=== PATIENT | female | born 1950 | race Caucasian/White ===

== ENCOUNTER 2018-04-30 11:14 | Inpatient (IN) | payer MEDICARE, OTHER ==
[~2018-04-30] VITALS: Ht 157.5 cm; Wt 71.6 kg
[~2018-04-30 11:14] MED LIST: ADDE10 PO; ADDE20XR PO; ARMO60TA PO; CYMB60CA PO; HYDRO25 PO; KCL20 PO; LASI20TA PO; OMPR20CCR PO; PRED2.5T4 PO; REST30CA PO; SOMA350T PO; TRAZ150T2 PO
[2018-04-30 11:21] VITALS: BP 186/79; PULSE 84; RESP 18; TEMP 98.6; O2SAT 98
--- NOTE | 2018-04-30 11:38 | PD ---
HPI Chief Complaint: Psychiatric Symptoms Time Seen by Provider: 11:31 Travel History International Travel<30 days: No Contact w/Intl Traveler<30days: No Traveled to known affect area: No History of Present Illness HPI 911 was called out for suicidal statements made, call was made out by sister. Patient's was then Turner acted based on the letter that stated that she wanted to harm herself. Apparently the patient ingested an unknown amount of pantoprazole, it is unknown over what period of time. However according to EMS the patient has been acting strangely over the last 3 days and it is questionable if the patient has been compliant with her medications. Patient is not really answering questions directly just continues to mumble and speak nonsensical sentences instead of answering questions...for instance patient mumbled "i'm very manipulative", "i'm very beautiful". 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 available per chart review [facility] Past Medical History Diabetes: No Menopausal: Yes : 2 Para: 2 Social History Alcohol Use: No Tobacco Use: No Substance Use: No Allergies-Medications (Allergen,Severity, Reaction): Coded Allergies: bee venom protein (honey bee) (Unverified Allergy, Intermediate, Chest Pain, 07/06/17) MAKES HER CHEST FEEL TIGHT codeine (Unverified Allergy, Intermediate, Nausea/Vomiting, 07/06/17) Reported Meds & Prescriptions Reported Meds & Active Scripts Active Reported Levsin (Hyoscyamine Sulfate) 0.125 Mg Tab 0.125 Mg PO DAILY PRN Tessalon Perles (Benzonatate) 100 Mg Cap 100 Mg PO TID PRN Xanax (Alprazolam) 2 Mg Tab 1 Mg PO HS Xanax (Alprazolam) 2 Mg Tab 0.5 Mg PO BID Hydrochlorothiazide 12.5 Mg Cap 12.5 Mg PO DAILY PRN Protonix (Pantoprazole Sodium) 40 Mg Tab 40 Mg PO DAILY Prednisone 10 Mg Tab 30 Mg PO DAILY 10 Days Plavix (Clopidogrel Bisulfate) 75 Mg Tab 75 Mg PO DAILY Adderall (Amphetamine-Dextroamphetamine) 20 Mg Tab 20 Mg PO BID Avoid late evening doses. Space doses at least 4 to 6 hours if more than once/day dosing. Restoril (Temazepam) 30 Mg Cap 30 Mg PO HS PRN Ceftin (Cefuroxime Axetil) 250 Mg Tab 250 Mg PO BID 5 Days [place] Thyroid (Thyroid) 60 Mg Tab 60 Mg PO DAILY Review of Systems ROS Limitations: Altered Mental Status General / Constitutional: No: Fever Eyes: No: Visual changes HENT: No: Headaches Cardiovascular: No: Chest Pain or Discomfort Respiratory: No: Shortness of Breath Gastrointestinal: No: Abdominal Pain Genitourinary: No: Dysuria Musculoskeletal: No: Pain Skin: No Rash Neurologic: Positive: Other (Diffuse), No: Weakness Psychiatric: Positive: Suicidal Ideations, No: Depression Endocrine: No: Polydipsia Hematologic/Lymphatic: No: Easy Bruising Physical Exam Exam Limitations: Clinical Condition, Altered Mental Status Narrative GENERAL: SKIN: Warm and dry. HEAD: Atraumatic. Normocephalic. EYES: Pupils equal and round. No scleral icterus. No injection or drainage. ENT: No nasal bleeding or discharge. Mucous membranes pink and moist. NECK: Trachea midline. No JVD. CARDIOVASCULAR: Regular rate and rhythm. RESPIRATORY: No accessory muscle use. Clear to auscultation. Breath sounds equal bilaterally. GASTROINTESTINAL: Abdomen soft, non-tender, nondistended. Hepatic and splenic margins not palpable. MUSCULOSKELETAL: Extremities without clubbing, cyanosis, or edema. No obvious deformities. NEUROLOGICAL: Awake confused with clear nonsensical speech. No obvious cranial nerve deficits. Motor grossly within normal limits. Five out of 5 muscle strength in the arms and legs. Follows commands with repeated instructions PSYCHIATRIC: Anxious mood and affect; insight and judgment abnormal. Data Data Last Documented VS Vital Signs Date Time Temp Pulse Resp B/P (MAP) Pulse Ox O2 Delivery O2 Flow Rate FiO2 04/30/18 11:30 83 18 04/30/18 11:21 98.6 186/79 (114) 98 Orders Orders Complete Blood Count With Diff (04/30/18 11:31) Comprehensive Metabolic Panel (04/30/18 11:31) Thyroid Stimulating Hormone (04/30/18 11:31) Urinalysis - C+S If Indicated (04/30/18 11:31) Electrocardiogram (04/30/18 11:31) Psych Screen (04/30/18 11:31) Drug Screen, Random Urine (04/30/18 11:31) Alcohol (Ethanol) (04/30/18 11:31) Salicylates (Aspirin) (04/30/18 11:31) Tylenol (Acetaminophen) (04/30/18 11:31) Ct Brain W/O Iv Contrast(Rout) (04/30/18 11:38) Labs Laboratory Tests Test 04/30/18 11:45 White Blood Count 14.4 TH/MM3 Red Blood Count 4.71 MIL/MM3 Hemoglobin 12.1 GM/DL Hematocrit 36.3 % Mean Corpuscular Volume 77.1 FL Mean Corpuscular Hemoglobin 25.6 PG Mean Corpuscular Hemoglobin Concent 33.3 % Red Cell Distribution Width 18.0 % Platelet Count 377 TH/MM3 Mean Platelet Volume 7.9 FL Neutrophils (%) (Auto) 76.8 % Lymphocytes (%) (Auto) 14.1 % Monocytes (%) (Auto) 8.6 % Eosinophils (%) (Auto) 0.3 % Basophils (%) (Auto) 0.2 % Neutrophils # (Auto) 11.1 TH/MM3 Lymphocytes # (Auto) 2.0 TH/MM3 Monocytes # (Auto) 1.2 TH/MM3 Eosinophils # (Auto) 0.0 TH/MM3 Basophils # (Auto) 0.0 TH/MM3 CBC Comment AUTO DIFF Blood Urea Nitrogen 22 MG/DL Creatinine 0.86 MG/DL Random Glucose 98 MG/DL Total Protein 7.3 GM/DL Albumin 3.3 GM/DL Calcium Level 8.7 MG/DL Alkaline Phosphatase 97 U/L Aspartate Amino Transf (AST/SGOT) 39 U/L Alanine Aminotransferase (ALT/SGPT) 40 U/L Total Bilirubin 0.7 MG/DL Sodium Level 140 MEQ/L Potassium Level MEQ/L Chloride Level 107 MEQ/L Carbon Dioxide Level 21.8 MEQ/L Anion Gap 11 MEQ/L Estimat Glomerular Filtration Rate 65 ML/MIN Thyroid Stimulating Hormone 3rd Gen 0.869 uIU/ML Salicylates Level LESS THAN 1.7 MG/DL Acetaminophen Level LESS THAN 2.0 MCG/ML Ethyl Alcohol Level LESS THAN 3 MG/DL MDM Medical Decision Making Medical Screen Exam Complete: Yes Emergency Medical Condition: Yes Medical Record Reviewed: Yes Interpretation(s) EKG has motion artifact however it is noted that normal sinus rhythm, 70 bpm, incomplete right bundle branch block pattern, no evidence of any ST elevation AK pattern Differential Diagnosis Intracranial hemorrhage versus thyrotoxicosis versus electrolyte imbalance Narrative Course CT head read by radiologist as no acute intracranial abnormality Tox screen negative for Tylenol salicylates or alcohol CBC shows reactive leukocytosis without left shift, no anemia, normal platelet count, no left shift Electrolytes are all within normal limits, normal kidney and liver functions, normal TSH screening Diagnosis Primary Impression: Yue eisenberg Additional Impression: Medical clearance for psychiatric admission Adrian Anderson MD Apr 30, 2018 11:38
--- NOTE | 2018-04-30 12:08 | RADRPT ---
EXAM DATE: 04/30/2018 11:58 AM EDT AGE/SEX: 68 years / Female INDICATIONS: Altered mental status, confusion for three days. CLINICAL DATA: This is the patient's initial encounter. Patient reports that signs and symptoms have been present for 1 day and indicates a pain score of 0/10. MEDICAL/SURGICAL HISTORY: Hypertension. None. RADIATION DOSE: 33.19 CTDI (mGy) COMPARISON: No prior exams available for comparison. TECHNIQUE: CT of the head without contrast. Using automated exposure control and adjustment of the mA and/or kV according to patient size, radiation dose was kept as low as reasonably achievable to ob tain optimal diagnostic quality images. FINDINGS: There is mild atrophy. No signs of acute infarct, hemorrhage, or mass. Osseous structures are intact. CONCLUSION: 1. No acute findings. Electronically signed by: Ac Marks MD 04/30/2018 12:07 PM EDT
[2018-04-30 12:10] LABS: AUTOMATED NEUTROPHIL # 11.1 TH/MM3 (1.8-7.7); BASOPHIL % 0.2 % (0.0-2.0); EOSINOPHIL % 0.3 % (0.0-4.0); HEMATOCRIT 36.3 % (35.0-46.0); HEMOGLOBIN 12.1 GM/DL (11.6-15.3); LYMPH % 14.1 % (9.0-44.0); MEAN CELL VOLUME 77.1 FL (80.0-100.0); MEAN CORPUSCULAR HEMOGLOBIN 25.6 PG (27.0-34.0); MEAN CORPUSCULAR HGB CONC 33.3 % (32.0-36.0); MEAN PLATELET VOLUME 7.9 FL (7.0-11.0); MONO % 8.6 % (0.0-8.0); MONOCYTE # 1.2 TH/MM3 (0-0.9); NEUT % 76.8 % (16.0-70.0); PLATELET COUNT 377 TH/MM3 (150-450); RED BLOOD COUNT 4.71 MIL/MM3 (4.00-5.30); WHITE BLOOD COUNT 14.4 TH/MM3 (4.0-11.0)
[2018-04-30 12:27] LABS: ALBUMIN 3.3 GM/DL (3.4-5.0); ALT (GPT) 40 U/L (10-53); AST (GOT) 39 U/L (15-37); BICARBONATE 21.8 MEQ/L (21.0-32.0); BLOOD UREA NITROGEN 22 MG/DL (7-18); CALCIUM 8.7 MG/DL (8.5-10.1); CHLORIDE 107 MEQ/L (98-107); CREATININE 0.86 MG/DL (0.50-1.00); GLOMERULAR FILTRATION RATE 65 ML/MIN (>89); GLUCOSE,RANDOM 98 MG/DL (74-106); SODIUM (NA) 140 MEQ/L (136-145)
[2018-04-30 12:30] LABS: ALKALINE PHOSPHATASE 97 U/L (45-117); TOTAL BILIRUBIN ADULT 0.7 MG/DL (0.2-1.0); TOTAL PROTEIN 7.3 GM/DL (6.4-8.2)
[2018-04-30] MEDS ORDERED: PRED10 PO (12:30)
[2018-04-30] MEDS ORDERED: XANA2TAB2 PO ×2 (12:30)
[2018-04-30] MEDS ORDERED: LEVS0.123 PO (12:30)
[2018-04-30] MEDS ORDERED: CEFU1TAB18 PO (12:30)
[2018-04-30] MEDS ORDERED: ADDE20 PO (12:30)
[2018-04-30] MEDS ORDERED: BENZ100 PO (12:30)
[2018-04-30] MEDS ORDERED: PROT40TA PO (12:30)
[2018-04-30] MEDS ORDERED: PLAV75TA29 PO (12:30)
[2018-04-30] MEDS ORDERED: ARMO60TA PO (12:30)
[2018-04-30] MEDS ORDERED: HYDR12.57 PO (12:30)
[2018-04-30] MEDS ORDERED: REST30CA PO (12:30)
[2018-04-30 12:39] LABS: ACETAMINOPHEN LESS THAN 2.0 MCG/ML (10.0-30.0)
[2018-04-30 12:54] LABS: BANDS 2 % (0-6); CORRECTED NUCLEATED RBC 1 /100 WBC (0-0); LYMPHOCYTES 15 % (9-44); METAMYELOCYTES 3 % (0-1); MONOCYTES 7 % (0-8); MYELOCYTES 4 % (0-0); NEUTROPHIL # MANUAL DIFF 11.2 TH/MM3 (1.8-7.7); NUCLEATED RED BLOOD CELL 1 (0-0); POLYS (SEG NEUTROPHILS) 69 % (16-70)
--- NOTE | 2018-04-30 14:40 | EKG ---
Date Performed: 04/30/2018 Time Performed: 11:42:31 PTAGE: 68 years EKG: Sinus rhythm POSSIBLE LEFT ATRIAL ENLARGEMENT POSSIBLE RIGHT VENTRICULAR CONDUCTION DELAY BORDERLINE ECG NO PREVIOUS TRACING DOCTOR: David Singletary Interpretating Date/Time 04/30/2018 14:39:09
[2018-04-30 16:11] LABS: BILIRUBIN, URINE NEG (NEG); BLOOD, URINE NEG (NEG); GLUCOSE,URINE NEG (NEG); HYALINE CAST, URINE 2 /lpf (RARE); KETONE, URINE NEG (NEG); MUCUS URINE FEW /lpf (OCC); NITRITE,URINE NEG (NEG); PH, URINE 6.5 (5.0-8.5); SQUAMOUS EPITHELIAL CELL URINE 1 /hpf (0-5); URINE COLOR YELLOW (YELLW/STRAW); URINE LEUKOCYTE ESTERASE NEG (NEG)
--- NOTE | 2018-04-30 17:57 | PD ---
History of Present Illness Chief Complaint: Psychiatric Symptoms Time Seen by Provider: 17:42 Travel History International Travel<30 Days: No Contact w/Intl Traveler<30days: No Known affected area: No Legal Status Legal Status: [employer] Act History of Present Illness: This is a 68-year-old female who presents to this facility under a Turner act for reportedly making suicidal statements to her sister. Additionally , per the Turner act a suicide note was found and is believed that the patient has been taking excessive medication. Patient has previously been seen here for psychiatric care however is been several years since her last inpatient admission. Reviewed electronic medical records, labs, discussed case with staff. Patient is observed in her room talking to herself. I attempted to evaluate her however , she is too disorganized to answer the questions. Her speech is clear. There appears to be some internal stimulation and her mood is bizarre. Patient sits on her bed with a smile on her face when asked why she was here she responded, "I am traveling". When asked where she was traveling to she responds, "contact ". I advised patient that I would be admitting her to the psychiatric unit and just received a smile. PFSH Past Medical History Anxiety: Yes High Cholesterol: Yes Diabetes: No GERD: Yes Hypertension: Yes Thyroid Disease: Yes Menopausal: Yes : 2 Para: 2 Past Surgical History Other Surgery: Yes (BIOPSYS ) Psychiatric History Psychiatric History Patient previously been admitted to this facility for psychosis. Hx Psychiatric Treatment: pt stated she saw someone for social security History of Inpatient Treatment: Yes Social History Hx Alcohol Use: No Hx Tobacco Use: No Hx Substance Use: No Hx of Substance Use Treatment: No Allergies-Medications (Allergen,Severity, Reaction): Coded Allergies: bee venom protein (honey bee) (Unverified Allergy, Intermediate, Chest Pain, 07/06/17) MAKES HER CHEST FEEL TIGHT codeine (Unverified Allergy, Intermediate, Nausea/Vomiting, 07/06/17) Reported Meds & Prescriptions Reported Meds & Active Scripts Active Reported Levsin (Hyoscyamine Sulfate) 0.125 Mg Tab 0.125 Mg PO DAILY PRN Tessalon Perles (Benzonatate) 100 Mg Cap 100 Mg PO TID PRN Xanax (Alprazolam) 2 Mg Tab 1 Mg PO HS Xanax (Alprazolam) 2 Mg Tab 0.5 Mg PO BID Hydrochlorothiazide 12.5 Mg Cap 12.5 Mg PO DAILY PRN Protonix (Pantoprazole Sodium) 40 Mg Tab 40 Mg PO DAILY Prednisone 10 Mg Tab 30 Mg PO DAILY 10 Days Plavix (Clopidogrel Bisulfate) 75 Mg Tab 75 Mg PO DAILY Adderall (Amphetamine-Dextroamphetamine) 20 Mg Tab 20 Mg PO BID Avoid late evening doses. Space doses at least 4 to 6 hours if more than once/day dosing. Restoril (Temazepam) 30 Mg Cap 30 Mg PO HS PRN Ceftin (Cefuroxime Axetil) 250 Mg Tab 250 Mg PO BID 5 Days [place] Thyroid (Thyroid) 60 Mg Tab 60 Mg PO DAILY Review of Systems Except as stated in HPI: all other systems reviewed are Neg Mental Status Examination Appearance: Appropriate Consciousness: Alert Orientation: Person Speech: Pressured, Rapid Language: Other (Disorganized) Fund of Knowledge: Poor Attention and Concentration: Easily Distracted, Inadequate Mood: Manic Affect: Euthymic (Hyper euthymic) Thought Process & Associations: Circumstantial, Disorganized Thought Content: Bizarre thinking, Racing thoughts Hallucination Type: Other (Was observed talking with no one in room) Suicidal Ideation: Yes (Per Turner act) Suicidal Plan: Yes (Per Turner act) Suicidal Intention: Yes (Per Turner act) Homicidal Ideation: No (Unable to assess) Homicidal Plan: No (Unable to assess) Homicidal Intention: No (Unable to assess) Insight: Poor Judgment: Poor MDM Medical Decision Making Medical Record Reviewed: Yes Assessment/Plan This is a 68-year-old female who presents under Turner act to this facility for suicidal ideation. The Turner act later goes on to mention a suicide note and attempted overdose. Upon examination patient is found sitting on the bed hyper euthymic state smiling intensely. She is a poor historian as her speech is clear but disorganized and illogical. She appears to be suffering from some internal stimulation. Her answers to questions asked her inappropriate. She appears to be experiencing otoniel with some psychotic features. She will be admitted to [facility] unit for evaluation and treatment as deemed necessary. I attempted to make contact with her listed son however, the phone just rang and was unable to leave a message. Request HC Surrog/Guard Advoc?: Yes Orders Orders Complete Blood Count With Diff (04/30/18 11:31) Comprehensive Metabolic Panel (04/30/18 11:31) Thyroid Stimulating Hormone (04/30/18 11:31) Urinalysis - C+S If Indicated (04/30/18 11:31) Electrocardiogram (04/30/18 11:31) Psych Screen (04/30/18 11:31) Drug Screen, Random Urine (04/30/18 11:31) Alcohol (Ethanol) (04/30/18 11:31) Salicylates (Aspirin) (04/30/18 11:31) Tylenol (Acetaminophen) (04/30/18 11:31) Ct Brain W/O Iv Contrast(Rout) (04/30/18 11:38) Diet Regular Basic (04/30/18 Dinner) Results Vital Signs Date Time Temp Pulse Resp B/P (MAP) Pulse Ox O2 Delivery O2 Flow Rate FiO2 04/30/18 11:30 83 18 04/30/18 11:21 98.6 84 18 186/79 (114) 98 Laboratory Tests Test 04/30/18 11:45 04/30/18 15:30 White Blood Count 14.4 Red Blood Count 4.71 Hemoglobin 12.1 Hematocrit 36.3 Mean Corpuscular Volume 77.1 Mean Corpuscular Hemoglobin 25.6 Mean Corpuscular Hemoglobin Concent 33.3 Red Cell Distribution Width 18.0 Platelet Count 377 Mean Platelet Volume 7.9 Neutrophils (%) (Auto) 76.8 Lymphocytes (%) (Auto) 14.1 Monocytes (%) (Auto) 8.6 Eosinophils (%) (Auto) 0.3 Basophils (%) (Auto) 0.2 Neutrophils # (Auto) 11.1 Lymphocytes # (Auto) 2.0 Monocytes # (Auto) 1.2 Eosinophils # (Auto) 0.0 Basophils # (Auto) 0.0 CBC Comment AUTO DIFF Differential Total Cells Counted 100 Neutrophils % (Manual) 69 Band Neutrophils % 2 Lymphocytes % 15 Monocytes % 7 Neutrophils # (Manual) 11.2 Metamyelocytes 3 Myelocytes 4 Nucleated Red Blood Cells 1 Differential Comment FINAL DIFF MANUAL Platelet Estimate NORMAL Platelet Morphology Comment NORMAL Blood Urea Nitrogen 22 Creatinine 0.86 Random Glucose 98 Total Protein 7.3 Albumin 3.3 Calcium Level 8.7 Alkaline Phosphatase 97 Aspartate Amino Transf (AST/SGOT) 39 Alanine Aminotransferase (ALT/SGPT) 40 Total Bilirubin 0.7 Sodium Level 140 Potassium Level Chloride Level 107 Carbon Dioxide Level 21.8 Anion Gap 11 Estimat Glomerular Filtration Rate 65 Thyroid Stimulating Hormone 3rd Gen 0.869 Salicylates Level LESS THAN 1.7 Acetaminophen Level LESS THAN 2.0 Ethyl Alcohol Level LESS THAN 3 Urine Color YELLOW Urine Turbidity CLEAR Urine pH 6.5 Urine Specific [place] 1.018 Urine Protein TRACE Urine Glucose (UA) NEG Urine Ketones NEG Urine Occult Blood NEG Urine Nitrite NEG Urine Bilirubin NEG Urine Urobilinogen LESS THAN 2.0 Urine Leukocyte Esterase NEG Urine RBC LESS THAN 1 Urine WBC 1 Urine Squamous Epithelial Cells 1 Urine Hyaline Casts 2 Urine Mucus FEW Microscopic Urinalysis Comment CULT NOT INDICATED Urine Opiates Screen NEG Urine Barbiturates Screen NEG Urine Amphetamines Screen NEG Urine Benzodiazepines Screen POS Urine Cocaine Screen NEG Urine Cannabinoids Screen NEG Diagnosis Primary Impression: Bipolar affective disorder, currently manic, severe, with psychotic features Additional Impressions: Turner act Medical clearance for psychiatric admission Admitting Information Admitting Physician Requests: Admit Problem Qualifiers Bela Bishop Apr 30, 2018 17:57
[2018-04-30] MEDS ORDERED: MAGNESIUM HYDROXIDE SUSP 30 ML CUP PO PRN (18:00)
[2018-04-30] MEDS ORDERED: ACETAMINOPHEN 325 MG TAB PO PRN (18:00)
[2018-04-30] MEDS ORDERED: ALUMINUM/MAGNESIUM/SIMETH 30 ML CUP PO PRN (18:00)
[2018-04-30 18:26] VITALS: BP 140/77; PULSE 80; RESP 18; O2SAT 98
[2018-04-30 19:40] VITALS: BP 200/98; PULSE 74; RESP 16; TEMP 97.7; O2SAT 97
[2018-04-30 20:00] VITALS: BP 188/90
[2018-04-30] MEDS ORDERED: cloNIDine HCL 0.1 MG TAB PO ONE (21:00)
[2018-05-01 06:11] VITALS: BP 179/78; PULSE 79; RESP 18; TEMP 98; O2SAT 95
[2018-05-01] MEDS ORDERED: cloNIDine HCL 0.1 MG TAB PO PRN (07:45)
[2018-05-01 09:16] LABS: BICARBONATE 22.4 MEQ/L (21.0-32.0); BLOOD UREA NITROGEN 22 MG/DL (7-18); CALCIUM 8.8 MG/DL (8.5-10.1); CHLORIDE 108 MEQ/L (98-107); GLOMERULAR FILTRATION RATE 71 ML/MIN (>89); GLUCOSE,RANDOM 90 MG/DL (74-106); SODIUM (NA) 142 MEQ/L (136-145)
[2018-05-01 09:23] LABS: CHOLESTEROL 186 MG/DL (120-200); CHOLESTEROL/ HDL RATIO 3.07 RATIO; HDL CHOLESTEROL 60.5 MG/DL (40.0-60.0); LDL CHOLESTEROL 102 MG/DL (0-99); TRIGLYCERIDES 118 MG/DL (42-150)
[2018-05-01 10:35] LABS: HEMOGLOBIN A1C 6.4 % (4.3-6.0)
--- NOTE | 2018-05-01 12:30 | PD.PSY.CON ---
Provisional Diagnosis Admission Date Apr 30, 2018 at 18:04 History of Present Illness Service Psychiatry Primary Care Physician Unknown HPI E-FORCSE report reviewed: Rx Fill Date Drug Name Qty Days Prescriber Last Name 04/13/2018 TEMAZEPAM 30 MG CAPSULE 30 30 MD LISA 04/13/2018 ALPRAZOLAM 2 MG TABLET 30 30 MD LISA 04/13/2018 DEXTROAMP-AMPHETAMIN 20 MG TAB 60 30 MD LISA 03/16/2018 ALPRAZOLAM 2 MG TABLET 30 30 MD LISA 03/16/2018 TEMAZEPAM 30 MG CAPSULE 30 30 MD LISA 03/16/2018 DEXTROAMP-AMPHETAMIN 20 MG TAB 60 30 MD LISA 02/10/2018 TEMAZEPAM 30 MG CAPSULE 30 30 Raimondo 02/10/2018 ALPRAZOLAM 2 MG TABLET 30 30 Raimondo 02/10/2018 DEXTROAMP-AMPHETAMIN 20 MG TAB 60 30 Raimondo 01/13/2018 ESZOPICLONE 3 MG TABLET 30 30 Raimondo 01/13/2018 DEXTROAMP-AMPHETAMIN 20 MG TAB 60 30 Raimondo 01/13/2018 ALPRAZOLAM 2 MG TABLET 30 30 Raimondo 12/07/2017 DEXTROAMP-AMPHETAMIN 20 MG TAB 60 30 Raimondo 12/06/2017 ALPRAZOLAM 2 MG TABLET 30 30 Raimondo 12/06/2017 ESZOPICLONE 3 MG TABLET 30 30 Raimondo 11/07/2017 ESZOPICLONE 3 MG TABLET 30 30 Raimondo 11/07/2017 DEXTROAMP-AMPHETAMIN 20 MG TAB 60 30 Raimondo 11/07/2017 ALPRAZOLAM 2 MG TABLET 30 30 Raimondo 10/09/2017 ALPRAZOLAM 2 MG TABLET 30 30 Raimondo 10/09/2017 ESZOPICLONE 3 MG TABLET 30 30 Raimondo 10/09/2017 DEXTROAMP-AMPHETAMIN 20 MG TAB 60 30 Raimondo 09/09/2017 ALPRAZOLAM 2 MG TABLET 30 30 Raimondo 09/09/2017 DEXTROAMP-AMPHETAMIN 20 MG TAB 60 30 Raimondo 09/09/2017 ESZOPICLONE 3 MG TABLET 30 30 Raimondo 07/30/2017 DEXTROAMP-AMPHETAMIN 20 MG TAB 60 30 Raimondo 07/30/2017 ESZOPICLONE 3 MG TABLET 30 30 Raimondo 07/29/2017 ALPRAZOLAM 2 MG TABLET 30 30 Raimondo 07/04/2017 ALPRAZOLAM 2 MG TABLET 30 30 Raimondo 07/04/2017 DEXTROAMP-AMPHETAMIN 20 MG TAB 60 30 Raimondo 07/02/2017 ESZOPICLONE 3 MG TABLET 30 30 Raimondo 06/06/2017 DEXTROAMP-AMPHETAMIN 20 MG TAB 60 30 Raimondo 06/06/2017 ZOLPIDEM TARTRATE 10 MG TABLET 30 30 Raimondo 06/06/2017 ALPRAZOLAM 2 MG TABLET 30 30 Raimondo 05/05/2017 ALPRAZOLAM 2 MG TABLET 30 30 Raimondo 05/05/2017 ZOLPIDEM TARTRATE 10 MG TABLET 30 30 Raimondo 05/05/2017 DEXTROAMP-AMPHETAMIN 20 MG TAB 60 30 Raimondo Past Family Social History Coded Allergies: bee venom protein (honey bee) (Unverified Allergy, Intermediate, Chest Pain, 07/06/17) MAKES HER CHEST FEEL TIGHT codeine (Unverified Allergy, Intermediate, Nausea/Vomiting, 07/06/17) Reported Medications Hyoscyamine (Levsin) 0.125 Mg Tab, 0.125 MG PO DAILY Y for INCREASED SECRETIONS , TAB 0 Refills 04/30/18 Benzonatate (Tessalon Perles) 100 Mg Cap, 100 MG PO TID Y for COUGH, CAP 0 Refills 04/30/18 Alprazolam (Xanax) 2 Mg Tab, 1 MG PO HS for Anxiety, TAB 0 Refills 04/30/18 Alprazolam (Xanax) 2 Mg Tab, 0.5 MG PO BID for Anxiety, TAB 0 Refills 04/30/18 Hydrochlorothiazide (Hydrochlorothiazide) 12.5 Mg Cap, 12.5 MG PO DAILY Y for EDEMA, #30 CAP 0 Refills 04/30/18 Pantoprazole (Protonix) 40 Mg Tab, 40 MG PO DAILY for Reflux, #30 TAB 0 Refills 04/30/18 Prednisone (Prednisone) 10 Mg Tab, 30 MG PO DAILY for 10 Days, #30 TAB 0 Refills 04/30/18 Clopidogrel (Plavix) 75 Mg Tab, 75 MG PO DAILY for Blood Clot Prevention, #30 TAB 0 Refills 04/30/18 Amphetamine-Dextroamphetamine (Adderall) 20 Mg Tab, 20 MG PO BID for Hyperactivity Control, #60 TAB 0 Refills Avoid late evening doses. Space doses at least 4 to 6 hours if more than once/day dosing. 04/30/18 Temazepam (Restoril) 30 Mg Cap, 30 MG PO HS Y for INSOMNIA, #30 CAP 0 Refills 04/30/18 Cefuroxime (Ceftin) 250 Mg Tab, 250 MG PO BID for 5 Days, #10 TAB 04/30/18 Thyroid ([place] Thyroid) 60 Mg Tab, 60 MG PO DAILY for Thyroid Supplement, #30 TAB 0 Refills 04/30/18 Current Medications Medications (Trade) Dose Ordered Sig/Stephen Route Start Time Stop Time Status Last Admin (Tylenol) 650 mg Q4H PRN PO 04/30/18 18:00 (Milk Of Magnesia Liq) 30 ml DAILY PRN PO 04/30/18 18:00 (Mag-Al Plus Susp Liq) 30 ml Q6H PRN PO 04/30/18 18:00 (Catapres) 0.1 mg Q6H PRN PO 05/01/18 07:45 Physical Exam Vital Signs Vital Signs Date Time Temp Pulse Resp B/P (MAP) Pulse Ox O2 Delivery O2 Flow Rate FiO2 05/01/18 06:11 98.0 79 18 179/78 (111) 95 04/30/18 18:26 Room Air Lab Results Test 04/30/18 15:30 05/01/18 08:32 Urine Color YELLOW Urine Turbidity CLEAR Urine pH 6.5 Urine Specific [place] 1.018 Urine Protein TRACE mg/dL Urine Glucose (UA) NEG mg/dL Urine Ketones NEG mg/dL Urine Occult Blood NEG Urine Nitrite NEG Urine Bilirubin NEG Urine Urobilinogen LESS THAN 2.0 MG/DL Urine Leukocyte Esterase NEG Urine RBC LESS THAN 1 /hpf Urine WBC 1 /hpf Urine Squamous Epithelial Cells 1 /hpf Urine Hyaline Casts 2 /lpf Urine Mucus FEW /lpf Microscopic Urinalysis Comment CULT NOT INDICATED Urine Opiates Screen NEG Urine Barbiturates Screen NEG Urine Amphetamines Screen NEG Urine Benzodiazepines Screen POS Urine Cocaine Screen NEG Urine Cannabinoids Screen NEG Blood Urea Nitrogen 22 MG/DL Creatinine 0.80 MG/DL Random Glucose 90 MG/DL Calcium Level 8.8 MG/DL Sodium Level 142 MEQ/L Potassium Level 3.5 MEQ/L Chloride Level 108 MEQ/L Carbon Dioxide Level 22.4 MEQ/L Anion Gap 12 MEQ/L Estimat Glomerular Filtration Rate 71 ML/MIN Hemoglobin A1c 6.4 % Triglycerides Level 118 MG/DL Cholesterol Level 186 MG/DL LDL Cholesterol 102 MG/DL HDL Cholesterol 60.5 MG/DL Cholesterol/HDL Ratio 3.07 RATIO Mental Status Examination Appearance: Appropriate Consciousness: Alert Orientation: Person Speech: Pressured, Rapid Language: Other (Disorganized) Fund of Knowledge: Poor Attention and Concentration: Easily Distracted, Inadequate Mood: Manic Affect: Euthymic (Hyper euthymic) Thought Process & Associations: Circumstantial, Disorganized Thought Content: Bizarre thinking, Racing thoughts Hallucination Type: Other (Was observed talking with no one in room) Suicidal Ideation: Yes (Per Turner act) Suicidal Plan: Yes (Per Turner act) Suicidal Intention: Yes (Per Turner act) Homicidal Ideation: No (Unable to assess) Homicidal Plan: No (Unable to assess) Homicidal Intention: No (Unable to assess) Insight: Poor Judgment: Poor Assessment & Plan Assessment & Plan Estimated LOS: days Request HC Surrog/Guard Advoc?: Yes Hang Mitchell MD May 01, 2018 12:30
[2018-05-01] MEDS ORDERED: LORazepam 1 MG TAB PO PRN (13:15)
[2018-05-01] MEDS ORDERED: LORazepam 2 MG/ML VIAL IM PRN ×4 (13:15)
[2018-05-01] MEDS ORDERED: BENZONATATE 100 MG CAP PO PRN (13:15)
[2018-05-01] MEDS ORDERED: LORazepam 2 MG TAB PO PRN (13:15)
[2018-05-01] MEDS ORDERED: HYDROCHLOROTHIAZIDE 12.5 MG CAP PO PRN (13:15)
[2018-05-01] MEDS ORDERED: FLUMAZENIL 0.5 MG/5 ML VIAL IV PUSH PRN (13:15)
--- NOTE | 2018-05-01 13:27 | HHI.HP ---
Provisional Diagnosis Admission Date Apr 30, 2018 at 18:04 [place]. 1. Bipolar disorder, presently manic, severe without psychotic features Rule out otoniel secondary to a substance Rule out otoniel secondary to general medical condition [place] II. Deferred Certification of Person's Competence To Provide Express and Informed Consent I have personally examined Nikki Gray , a person being served at [facility] on, May 01, 2018 12:54. Express and informed consent means consent voluntarily given in writing, by a competent person, after sufficient explanation and disclosure of the subject matter involved to enable the person to make a knowing and willful decision without any element of force, fraud, deceit, duress, or other form of constraint or coercion. This person is 18 years of age or older, is not now known to be incompetent to consent to treatment with a guardian advocate, and does not have a health care surrogate or proxy currently making medical treatment decisions. I have found this person to be one of the following: [] Competent to provide express and informed consent, as defined above, for voluntary admission to this facility and is competent to provide express and informed consent for treatment. He/she has the consistent capacity to make well reasoned, willful, and knowing decisions concerning his or her medical or mental health treatment. The person fully and consistently understands the purpose of the admission for examination/placement and is fully capable of personally exercising all rights [place] [x] Incompetent to provide express and informed consent to voluntary admission, and this is incompetent to provide express and informed consent to treatment. The person must be transferred to involuntary status and a petition for a guardian advocate filed with the Circuit Court. [] Refusing to provide express and informed consent to voluntary admission but is competent to provide express and informed consent for treatment. The person must be discharged or transferred to involuntary status. Form shall be completed within 24 hours of a person's arrival at the receiving facility and filed in the clinical record of each person: 1. Admitted on a voluntary basis 2. Permitted to provide express and informed consent to his/her own treatment 3. Allowed to transfer from involuntary to voluntary status 4. Prior to permitting a person to consent to his or her own treatment after having been previously found incompetent to consent to treatment. History of Present Illness Capacity: Lacks Capacity Psych Chief Complaint: Otoniel, overdose HPI Ms. Gray is a 68-year-old female with a reported history of depression versus bipolar disorder and a chart history of schizoaffective disorder who presents under a Turner act by law enforcement alleging overdose. According to the ED provider note, patient ingested an unknown quantity of pantoprazole. Patient was seen by the psychiatric nurse practitioner in the ED. Reviewing the electronic medical record, I note the patient was [place] [address] Lewis with an episode of psychosis. Patient seen and examined with nurse. Chart reviewed. Case discussed with nursing staff. Case discussed with counselor who has obtained collateral information from patient's to the effect that the patient has been overusing medications prescribed to her by her outpatient provider, see below. On my examination today, the patient is hyperkinetic, hyperverbal with pressured speech, disinhibited, impulsive. She includes many extraneous details in her narrative and also makes nonsensical verbalizations at times. When I inquire about presenting overdose the patient says "I might have. Lotsa cocktails, but God's not ready for me to alvarez." Patient cannot say what she took or how much. She does say that she is happy to have survived and does not describe any ongoing desire to harm herself. She does say, "I'd like to kick the bunghole of the man who killed my dog" 8-10 years ago. Mood is "happy happy !" No audiovisual hallucinations. No delusional material. Some sexual preoccupation noted, and patient does say that she loves a variety of famous men , such as Douglas, "but not in a sexual way." Psychiatric interview is somewhat limited because of patient's manic state. No acute physical complaints. Past psychiatric history: Patient reports history of major depressive disorder/ bipolar disorder. She is treated on an outpatient basis by Dr. Herrera. She reports that she was psychiatrically admitted 4 years ago (i.e. here) and was admitted perhaps one time before that. She denies any history of suicide attempts. Family history: The patient reports that her mother had bipolar illness. She denies any family history of suicide. Chemical dependency history: The patient initially replies "adan adan adan! Bhanu bhanu bhanu!" when I ask about substance use. She does admit somewhat later that she has been abusing substances saying that she is using "cocktail, cocktail!" Social history: Patient lives with her . She has 2 sons. 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 Unclear whether patient has any or legal history. She denies any access to guns or firearms. She does allude to a childhood history of trauma but reports no PTSD symptoms at this time. When I ask about christian beliefs she says that she shares her father's beliefs, namely "Ep[employer] , [employer] type congregation. My father believes there are 10 gods." E-FORCSE report reviewed: Rx Fill Date Drug Name Qty Days Prescriber Last Name 04/13/2018 TEMAZEPAM 30 MG CAPSULE 30 30 MD LISA 04/13/2018 ALPRAZOLAM 2 MG TABLET 30 30 MD LISA 04/13/2018 DEXTROAMP-AMPHETAMIN 20 MG TAB 60 30 MD LISA 03/16/2018 ALPRAZOLAM 2 MG TABLET 30 30 MD LISA 03/16/2018 TEMAZEPAM 30 MG CAPSULE 30 30 MD LISA 03/16/2018 DEXTROAMP-AMPHETAMIN 20 MG TAB 60 30 MD LISA 02/10/2018 TEMAZEPAM 30 MG CAPSULE 30 30 Raimondo 02/10/2018 ALPRAZOLAM 2 MG TABLET 30 30 Raimondo 02/10/2018 DEXTROAMP-AMPHETAMIN 20 MG TAB 60 30 Raimondo 01/13/2018 ESZOPICLONE 3 MG TABLET 30 30 Raimondo 01/13/2018 DEXTROAMP-AMPHETAMIN 20 MG TAB 60 30 Raimondo 01/13/2018 ALPRAZOLAM 2 MG TABLET 30 30 Raimondo 12/07/2017 DEXTROAMP-AMPHETAMIN 20 MG TAB 60 30 Raimondo 12/06/2017 ALPRAZOLAM 2 MG TABLET 30 30 Raimondo 12/06/2017 ESZOPICLONE 3 MG TABLET 30 30 Raimondo 11/07/2017 ESZOPICLONE 3 MG TABLET 30 30 Raimondo 11/07/2017 DEXTROAMP-AMPHETAMIN 20 MG TAB 60 30 Raimondo 11/07/2017 ALPRAZOLAM 2 MG TABLET 30 30 Raimondo 10/09/2017 ALPRAZOLAM 2 MG TABLET 30 30 Raimondo 10/09/2017 ESZOPICLONE 3 MG TABLET 30 30 Raimondo 10/09/2017 DEXTROAMP-AMPHETAMIN 20 MG TAB 60 30 Raimondo 09/09/2017 ALPRAZOLAM 2 MG TABLET 30 30 Raimondo 09/09/2017 DEXTROAMP-AMPHETAMIN 20 MG TAB 60 30 Raimondo 09/09/2017 ESZOPICLONE 3 MG TABLET 30 30 Raimondo 07/30/2017 DEXTROAMP-AMPHETAMIN 20 MG TAB 60 30 Raimondo 07/30/2017 ESZOPICLONE 3 MG TABLET 30 30 Raimondo 07/29/2017 ALPRAZOLAM 2 MG TABLET 30 30 Raimondo 07/04/2017 ALPRAZOLAM 2 MG TABLET 30 30 Raimondo 07/04/2017 DEXTROAMP-AMPHETAMIN 20 MG TAB 60 30 Raimondo 07/02/2017 ESZOPICLONE 3 MG TABLET 30 30 Raimondo 06/06/2017 DEXTROAMP-AMPHETAMIN 20 MG TAB 60 30 Raimondo 06/06/2017 ZOLPIDEM TARTRATE 10 MG TABLET 30 30 Raimondo 06/06/2017 ALPRAZOLAM 2 MG TABLET 30 30 Raimondo 05/05/2017 ALPRAZOLAM 2 MG TABLET 30 30 Raimondo 05/05/2017 ZOLPIDEM TARTRATE 10 MG TABLET 30 30 Raimondo 05/05/2017 DEXTROAMP-AMPHETAMIN 20 MG TAB 60 30 Raimondo Review of Systems ROS Limitations: Poor Historian Except as stated in HPI: all other systems reviewed are Neg Past Family Social History Coded Allergies: bee venom protein (honey bee) (Unverified Allergy, Intermediate, Chest Pain, 07/06/17) MAKES HER CHEST FEEL TIGHT codeine (Unverified Allergy, Intermediate, Nausea/Vomiting, 07/06/17) Past Medical History See electronic medical record Reported Medications Hyoscyamine (Levsin) 0.125 Mg Tab, 0.125 MG PO DAILY Y for INCREASED SECRETIONS , TAB 0 Refills 04/30/18 Benzonatate (Tessalon Perles) 100 Mg Cap, 100 MG PO TID Y for COUGH, CAP 0 Refills 04/30/18 Alprazolam (Xanax) 2 Mg Tab, 1 MG PO HS for Anxiety, TAB 0 Refills 04/30/18 Alprazolam (Xanax) 2 Mg Tab, 0.5 MG PO BID for Anxiety, TAB 0 Refills 04/30/18 Hydrochlorothiazide (Hydrochlorothiazide) 12.5 Mg Cap, 12.5 MG PO DAILY Y for EDEMA, #30 CAP 0 Refills 04/30/18 Pantoprazole (Protonix) 40 Mg Tab, 40 MG PO DAILY for Reflux, #30 TAB 0 Refills 04/30/18 Prednisone (Prednisone) 10 Mg Tab, 30 MG PO DAILY for 10 Days, #30 TAB 0 Refills 04/30/18 Clopidogrel (Plavix) 75 Mg Tab, 75 MG PO DAILY for Blood Clot Prevention, #30 TAB 0 Refills 04/30/18 Amphetamine-Dextroamphetamine (Adderall) 20 Mg Tab, 20 MG PO BID for Hyperactivity Control, #60 TAB 0 Refills Avoid late evening doses. Space doses at least 4 to 6 hours if more than once/day dosing. 04/30/18 Temazepam (Restoril) 30 Mg Cap, 30 MG PO HS Y for INSOMNIA, #30 CAP 0 Refills 04/30/18 Cefuroxime (Ceftin) 250 Mg Tab, 250 MG PO BID for 5 Days, #10 TAB 04/30/18 Thyroid ([place] Thyroid) 60 Mg Tab, 60 MG PO DAILY for Thyroid Supplement, #30 TAB 0 Refills 04/30/18 Current Medications Medications (Trade) Dose Ordered Sig/Stephen Route Start Time Stop Time Status Last Admin (Tylenol) 650 mg Q4H PRN PO 04/30/18 18:00 (Milk Of Magnesia Liq) 30 ml DAILY PRN PO 04/30/18 18:00 (Mag-Al Plus Susp Liq) 30 ml Q6H PRN PO 04/30/18 18:00 (Catapres) 0.1 mg Q6H PRN PO 05/01/18 07:45 Patient's Strengths (min. 2) In a monitored setting. Verbally fluent. Physical Exam Physical examination completed by ED provider. On my examination today, the patient appears to be in no acute physical distress. No motor abnormalities noted. No signs of withdrawal noted. Unclear whether there is some component of possible amphetamine intoxication at play. Labs and vitals reviewed: Vital Signs Vital Signs Date Time Temp Pulse Resp B/P (MAP) Pulse Ox O2 Delivery O2 Flow Rate FiO2 05/01/18 06:11 98.0 79 18 179/78 (111) 95 04/30/18 18:26 Room Air Lab Results Test 04/30/18 15:30 05/01/18 08:32 Urine Color YELLOW Urine Turbidity CLEAR Urine pH 6.5 Urine Specific [place] 1.018 Urine Protein TRACE mg/dL Urine Glucose (UA) NEG mg/dL Urine Ketones NEG mg/dL Urine Occult Blood NEG Urine Nitrite NEG Urine Bilirubin NEG Urine Urobilinogen LESS THAN 2.0 MG/DL Urine Leukocyte Esterase NEG Urine RBC LESS THAN 1 /hpf Urine WBC 1 /hpf Urine Squamous Epithelial Cells 1 /hpf Urine Hyaline Casts 2 /lpf Urine Mucus FEW /lpf Microscopic Urinalysis Comment CULT NOT INDICATED Urine Opiates Screen NEG Urine Barbiturates Screen NEG Urine Amphetamines Screen NEG Urine Benzodiazepines Screen POS Urine Cocaine Screen NEG Urine Cannabinoids Screen NEG Blood Urea Nitrogen 22 MG/DL Creatinine 0.80 MG/DL Random Glucose 90 MG/DL Calcium Level 8.8 MG/DL Sodium Level 142 MEQ/L Potassium Level 3.5 MEQ/L Chloride Level 108 MEQ/L Carbon Dioxide Level 22.4 MEQ/L Anion Gap 12 MEQ/L Estimat Glomerular Filtration Rate 71 ML/MIN Hemoglobin A1c 6.4 % Triglycerides Level 118 MG/DL Cholesterol Level 186 MG/DL LDL Cholesterol 102 MG/DL HDL Cholesterol 60.5 MG/DL Cholesterol/HDL Ratio 3.07 RATIO Last Impressions Head CT 04/30/18 1138 Signed Impressions: CONCLUSION: 1. No acute findings. EKG sinus rhythm QTC 424 ms, not prolonged. Mental Status Examination Appearance: Appropriate Consciousness: Alert Orientation: Person, Place, Date/Time Motor Activity: Normal gait Speech: Pressured Language: Other (Rambling) Fund of Knowledge: Poor Attention and Concentration: Easily Distracted Memory: Unremarkable Mood: Manic Affect: Other (Expensive) Thought Process & Associations: Loose associations (Prominent) Thought Content: Bizarre thinking, Racing thoughts Hallucination Type: None Delusion Type: None Suicidal Ideation: No Suicidal Plan: No Suicidal Intention: No Homicidal Ideation: No Homicidal Plan: No Homicidal Intention: No Insight: Poor Judgment: Poor Assessment & Plan Problem List: (1) Bipolar disorder, current episode manic without psychotic features, severe ICD Codes: F31.13 - Bipolar disorder, current episode manic without psychotic features, severe Assessment & Plan 68-year-old female with psychiatric history as detailed above who presents under Turner act. On my examination today, the patient presents as floridly manic. She had apparently been exhibiting some psychotic features earlier but does not have any presently. Unclear whether there is a component of drug- induced mood disorder as the patient has been receiving multiple controlled substances from her outpatient provider. There is no evidence however that she is in DTs. Manic episode secondary to general medical condition is possible as the patient has a leukocytosis but no obvious signs or symptoms of infection. I will plan to admit the patient to the inpatient psychiatric unit for safety, observation and stabilization. Admit inpatient. Involuntary status. I have completed first opinion. Consult for second opinion. Request healthcare surrogate and guardian advocate. I will initiate Zyprexa 5 mg at bedtime for mood stabilization with plans to titrate to effect. To consider initiation of lithium, Depakote or another traditional mood stabilizer. Discontinue home benzodiazepines and stimulants as these may be exacerbating patient's mood state. I will place the patient on a CIWA scale with Ativan for the management of any withdrawal. Seizure precautions. R/B/A for meds reviewed by phone with , who agrees to serve as HCS and who provides consent for medications. Hospitalist consultation already ordered. Check CBC and CMP in the morning to follow-up laboratory abnormalities. PT eval. Fall precautions. Vitals every shift. Counselor to see. Disposition planning. Estimated length of stay: 7-9 days. Discharge Planning Pending psychiatric stabilization Request HC Surrog/Guard Advoc?: Yes Hang Mitchell MD May 01, 2018 13:27
--- NOTE | 2018-05-01 14:25 | EKG ---
Date Performed: 05/01/2018 Time Performed: 10:54:38 PTAGE: 68 years EKG: Sinus rhythm POSSIBLE LEFT ATRIAL ENLARGEMENT MARKED LEFT AXIS DEVIATION POSSIBLE RIGHT VENTRICULAR CONDUCTION DE LAY ABNORMAL ECG PREVIOUS TRACING : 04/30/2018 11.42 Since the previous tracing, no significant change noted DOCTOR: David Singletary Interpretating Date/Time 05/01/2018 14:23:55
--- NOTE | 2018-05-01 15:11 | PD.CONS ---
[facility] Request[facility] By Psychiatry team Reason for Consult Assist with medical management Primary Care Physician Unknown Diagnoses: History of Present Illness Patient is a 68-year-old female with known past medical history of HTN, hypothyroidism, HLD, COPD, schizoaffective disorder who initially came into the hospital under Turner act secondary to medication overdose. As per review of records patient took unknown quantity of Pantoprazole. She is now admitted to inpatient psychiatry unit for further evaluation. Consulted for assistance in medical management. Patient seen and examined today. Patient does smoke responds to questions and commands. States she is tired. Appears to be confused. But able to answer some questions and commands. Reports she does not know what medication she took but she took something. She does not remember what happened after. States she feels hot right now. Denies pain and discomfort. Denies SOB/ dyspnea. Denies chest pain, palpitations, headaches, dizziness. Denies fevers, chills, n/v/d. Denies dysuria. Review of Systems Except as stated in HPI: all other systems reviewed are Neg Past Family Social History Allergies: Coded Allergies: bee venom protein (honey bee) (Unverified Allergy, Intermediate, Chest Pain, 07/06/17) MAKES HER CHEST FEEL TIGHT codeine (Unverified Allergy, Intermediate, Nausea/Vomiting, 07/06/17) Past Medical History HTN Hypothyroidism HLD COPD emphysema Schizoaffective disorder Past Surgical History Oophorectomy Breast biopsy Reported Medications Reported Meds & Active Scripts Active Reported Levsin (Hyoscyamine Sulfate) 0.125 Mg Tab 0.125 Mg PO DAILY PRN Tessalon Perles (Benzonatate) 100 Mg Cap 100 Mg PO TID PRN Xanax (Alprazolam) 2 Mg Tab 1 Mg PO HS Xanax (Alprazolam) 2 Mg Tab 0.5 Mg PO BID Hydrochlorothiazide 12.5 Mg Cap 12.5 Mg PO DAILY PRN Protonix (Pantoprazole Sodium) 40 Mg Tab 40 Mg PO DAILY Prednisone 10 Mg Tab 30 Mg PO DAILY 10 Days Plavix (Clopidogrel Bisulfate) 75 Mg Tab 75 Mg PO DAILY Adderall (Amphetamine-Dextroamphetamine) 20 Mg Tab 20 Mg PO BID Avoid late evening doses. Space doses at least 4 to 6 hours if more than once/day dosing. Restoril (Temazepam) 30 Mg Cap 30 Mg PO HS PRN Ceftin (Cefuroxime Axetil) 250 Mg Tab 250 Mg PO BID 5 Days [place] Thyroid (Thyroid) 60 Mg Tab 60 Mg PO DAILY Active Ordered Medications Current Medications Medications (Trade) Dose Ordered Sig/Stephen Route Start Time Stop Time Status Last Admin (Tylenol) 650 mg Q4H PRN PO 04/30/18 18:00 (Milk Of Magnesia Liq) 30 ml DAILY PRN PO 04/30/18 18:00 (Mag-Al Plus Susp Liq) 30 ml Q6H PRN PO 04/30/18 18:00 (Catapres) 0.1 mg Q6H PRN PO 05/01/18 07:45 (Tessalon) 100 mg TID PRN PO 05/01/18 13:15 (Plavix) 75 mg DAILY PO 05/02/18 09:00 (Microzide) 12.5 mg DAILY PRN PO 05/01/18 13:15 ([place] Thyroid) 60 mg DAILY PO 05/02/18 09:00 (Folate) 1 mg DAILY PO 05/02/18 09:00 05/07/18 08:59 (Vitamin B1) 100 mg DAILY PO 05/02/18 09:00 (Theragran M Tab) 1 tab DAILY PO 05/02/18 09:00 05/07/18 08:59 (Romazicon Inj) 0.2 mg Q1M PRN IV PUSH 05/01/18 13:15 (Ativan) 1 mg Q4H PRN PO 05/01/18 13:15 (Ativan Inj) 1 mg Q4H PRN IM 05/01/18 13:15 (Ativan) 2 mg Q2H PRN PO 05/01/18 13:15 (Ativan Inj) 2 mg Q2H PRN IM 05/01/18 13:15 (Ativan Inj) 2 mg Q1H PRN IM 05/01/18 13:15 (Ativan Inj) 2 mg Q15M PRN IM 05/01/18 13:15 (ZyPREXA ZYDIS ODT) 5 mg HS PO 05/01/18 21:00 (ZyPREXA INJ) 5 mg HS PRN IM 05/01/18 21:00 Family History Mother has hypertension and diabetes Father has thyroid problem Social History Denies alcohol use Denies tobacco use Denies illicit drug use Physical Exam Vital Signs Vital Signs Date Time Temp Pulse Resp B/P (MAP) Pulse Ox O2 Delivery O2 Flow Rate FiO2 05/01/18 06:11 98.0 79 18 179/78 (111) 95 04/30/18 20:08 04/30/18 20:00 188/90 (122) 04/30/18 19:40 97.7 74 16 200/98 (132) 97 04/30/18 18:26 80 18 140/77 (98) 98 Room Air Physical Exam GENERAL: This is a well-nourished, well-developed patient, in no apparent distress. SKIN: Warm and dry HEENT: Normocephalic. Pupils equal round and reactive. Nose without bleeding. Airway patent. NECK: Trachea midline. CARDIOVASCULAR: Regular rate and rhythm without murmurs, gallops, or rubs. RESPIRATORY: Clear to auscultation. Breath sounds equal bilaterally. No wheezes , rales, or rhonchi. GASTROINTESTINAL: Abdomen soft, non-tender, nondistended. Bowel Sounds normoactive x4. MUSCULOSKELETAL: Extremities without clubbing, cyanosis, or edema. NEUROLOGICAL: Awake and alert. Oriented to person. Slow response to questions and commands. Moves all extremities. Slow speech. Laboratory Laboratory Tests Test 04/30/18 15:30 05/01/18 08:32 Urine Color YELLOW Urine Turbidity CLEAR Urine pH 6.5 Urine Specific [place] 1.018 Urine Protein TRACE Urine Glucose (UA) NEG Urine Ketones NEG Urine Occult Blood NEG Urine Nitrite NEG Urine Bilirubin NEG Urine Urobilinogen LESS THAN 2.0 Urine Leukocyte Esterase NEG Urine RBC LESS THAN 1 Urine WBC 1 Urine Squamous Epithelial Cells 1 Urine Hyaline Casts 2 Urine Mucus FEW Microscopic Urinalysis Comment CULT NOT INDICATED Urine Opiates Screen NEG Urine Barbiturates Screen NEG Urine Amphetamines Screen NEG Urine Benzodiazepines Screen POS Urine Cocaine Screen NEG Urine Cannabinoids Screen NEG Blood Urea Nitrogen 22 Creatinine 0.80 Random Glucose 90 Calcium Level 8.8 Sodium Level 142 Potassium Level 3.5 Chloride Level 108 Carbon Dioxide Level 22.4 Anion Gap 12 Estimat Glomerular Filtration Rate 71 Hemoglobin A1c 6.4 Triglycerides Level 118 Cholesterol Level 186 LDL Cholesterol 102 HDL Cholesterol 60.5 Cholesterol/HDL Ratio 3.07 Result Diagram: 04/30/18 1145 05/01/18 0832 Assessment and Plan Assessment and Plan Patient is a 68-year-old female with known past medical history of HTN, hypothyroidism, HLD, COPD, schizoaffective disorder who initially came into the hospital under Turner act secondary to medication overdose. As per review of records patient took unknown quantity of Pantoprazole. She is now admitted to inpatient psychiatry unit for further evaluation. Consulted for assistance in medical management. Suicidal intention, bipolar disorder, schizoaffective disorder -Managed by psychiatry team Polypharmacy Altered mental status, increased confusion -Patient is prescribed and outpatient multiple medications that interferes with cognition. Highly addicting medication -Patient is on temazepam, alprazolam, Adderall -We will have psychiatry to wean off patient on some of the medications. -Patient reports she takes multiple drugs secondary to insomnia -Possible withdrawal from medication, Ativan use Hypertension CAD -Continue clonidine as needed, Plavix 75 mg daily, On hydrochlorothiazide 12.5 mg as needed for edema -Elevated BP, will start low-dose lisinopril. UA also presented with trace proteinuria -Monitor BP trend Hypothyroidism -Continue [place] Thyroid. Check TSH. DVT prop early ambulation Code Status Full code Discussed Condition With Patient, nursing Evelin Welsh May 01, 2018 15:11
[2018-05-01 17:36] VITALS: BP 179/75; PULSE 71; RESP 18; TEMP 98.1; O2SAT 91
[2018-05-01] MEDS: OLANZapine ODT 5 MG TAB PO SCH (20:39)
[2018-05-01] MEDS ORDERED: OLANZapine IM 10 MG VIAL IM PRN (21:00)
[2018-05-02 06:15] VITALS: BP 117/58; PULSE 62; RESP 16; TEMP 99; O2SAT 92
[2018-05-02] MEDS: THIAMINE HCL 100 MG TAB PO SCH (08:21)
[2018-05-02] MEDS: CLOPIDOGREL 75 MG TAB PO SCH (08:21)
[2018-05-02] MEDS: MULTIVITAMINS/MINERALS THERAPEUTIC TAB PO SCH (08:21)
[2018-05-02] MEDS: THYROID 60 MG TAB PO SCH (08:21)
[2018-05-02] MEDS: LISINOPRIL 10 MG TAB PO SCH (08:22)
[2018-05-02] MEDS: FOLIC ACID 1 MG TAB PO SCH (08:22)
[2018-05-02 09:22] LABS: AUTOMATED NEUTROPHIL # 9.2 TH/MM3 (1.8-7.7); BASOPHIL % 0.2 % (0.0-2.0); EOSINOPHIL # 0.2 TH/MM3 (0-0.4); EOSINOPHIL % 1.5 % (0.0-4.0); HEMATOCRIT 38.9 % (35.0-46.0); HEMOGLOBIN 12.8 GM/DL (11.6-15.3); LYMPH % 16.9 % (9.0-44.0); LYMPHOCYTE # 2.1 TH/MM3 (1.0-4.8); MEAN CELL VOLUME 76.7 FL (80.0-100.0); MEAN CORPUSCULAR HEMOGLOBIN 25.2 PG (27.0-34.0); MEAN CORPUSCULAR HGB CONC 32.8 % (32.0-36.0); MEAN PLATELET VOLUME 7.8 FL (7.0-11.0); MONO % 7.5 % (0.0-8.0); MONOCYTE # 0.9 TH/MM3 (0-0.9); NEUT % 73.9 % (16.0-70.0); PLATELET COUNT 392 TH/MM3 (150-450); RED BLOOD COUNT 5.08 MIL/MM3 (4.00-5.30); RED CELL DISTRIBUTION WIDTH 17.9 % (11.6-17.2); WHITE BLOOD COUNT 12.4 TH/MM3 (4.0-11.0)
[2018-05-02 10:09] LABS: ALBUMIN 3.2 GM/DL (3.4-5.0); ALT (GPT) 35 U/L (10-53); AST (GOT) 25 U/L (15-37); BICARBONATE 21.7 MEQ/L (21.0-32.0); BLOOD UREA NITROGEN 17 MG/DL (7-18); CALCIUM 8.8 MG/DL (8.5-10.1); CHLORIDE 110 MEQ/L (98-107); CREATININE 0.88 MG/DL (0.50-1.00); GLOMERULAR FILTRATION RATE 64 ML/MIN (>89); GLUCOSE,RANDOM 78 MG/DL (74-106); SODIUM (NA) 143 MEQ/L (136-145)
[2018-05-02 10:12] LABS: ALKALINE PHOSPHATASE 102 U/L (45-117); TOTAL BILIRUBIN ADULT 0.6 MG/DL (0.2-1.0); TOTAL PROTEIN 6.9 GM/DL (6.4-8.2)
[2018-05-02 10:59] LABS: BANDS 1 % (0-6); LYMPHOCYTES 25 % (9-44); METAMYELOCYTES 1 % (0-1); MONOCYTES 2 % (0-8); MYELOCYTES 4 % (0-0); NEUTROPHIL # MANUAL DIFF 8.9 TH/MM3 (1.8-7.7); POLYS (SEG NEUTROPHILS) 66 % (16-70)
[2018-05-02] MEDS ORDERED: POTASSIUM CHLORIDE 10 MEQ CONTROLLED RELEASE TAB PO ONE (13:00)
--- NOTE | 2018-05-02 13:46 | HHI.PR ---
Subjective Remarks Follow-up visit CAD, HTN, hypothyroidism, COPD. Patient seen and examined today. More awake and alert and responsive. States that she is doing well. States that she takes Plavix because she has 8 stents prior. Patient states medically she is okay but states "I am only cuckoo in the head." Denies pain and discomfort. Denies SOB/ dyspnea. Denies chest pain, palpitations, headaches, dizziness. Denies fevers, chills, n/v/d. Denies dysuria. Objective Vitals Vital Signs Date Time Temp Pulse Resp B/P (MAP) Pulse Ox O2 Delivery O2 Flow Rate FiO2 05/02/18 06:15 99.0 62 16 117/58 (77) 92 05/01/18 17:36 98.1 71 18 179/75 (109) 91 I/O 05/01/18 05/01/18 05/01/18 05/02/18 05/02/18 05/02/18 07:00 15:00 23:00 07:00 15:00 23:00 Intake Total 480 ml Balance 480 ml Intake Oral 480 ml Result Diagram: 05/02/18 0736 05/02/18 0736 Imaging Last Impressions Head CT 04/30/18 1138 Signed Impressions: CONCLUSION: 1. No acute findings. Objective Remarks GENERAL: This is a well-nourished, well-developed patient, in no apparent distress. SKIN: Warm and dry HEENT: Normocephalic. Pupils equal round and reactive. Nose without bleeding. Airway patent. NECK: Trachea midline. CARDIOVASCULAR: Regular rate and rhythm without murmurs, gallops, or rubs. RESPIRATORY: Clear to auscultation. Breath sounds equal bilaterally. No wheezes , rales, or rhonchi. GASTROINTESTINAL: Abdomen soft, non-tender, nondistended. Bowel Sounds normoactive x4. MUSCULOSKELETAL: Extremities without clubbing, cyanosis, or edema. NEUROLOGICAL: Awake and alert. Oriented to place, person. No focal neuro deficit. Moves all extremities. Normal speech. A/P Assessment and Plan Patient is a 68-year-old female with known past medical history of HTN, hypothyroidism, HLD, COPD, schizoaffective disorder who initially came into the hospital under Turner act secondary to medication overdose. As per review of records patient took unknown quantity of Pantoprazole. She is now admitted to inpatient psychiatry unit for further evaluation. Consulted for assistance in medical management. Suicidal intention, bipolar disorder, schizoaffective disorder -Managed by psychiatry team Polypharmacy Altered mental status, increased confusion -Patient is prescribed and outpatient multiple medications that interferes with cognition. Highly addicting medication -Patient is on temazepam, alprazolam, Adderall -We will have psychiatry to wean off patient on some of the medications. -Patient reports she takes multiple drugs secondary to insomnia -Possible withdrawal from medication, Ativan use Hypertension CAD -Continue clonidine as needed, Plavix 75 mg daily, On hydrochlorothiazide 12.5 mg as needed for edema -Elevated BP, will start low-dose lisinopril. UA also presented with trace proteinuria -Monitor BP trend Hypothyroidism -Continue [place] Thyroid. -TSH within normal Borderline diabetes -Discussed extensively with patient. Lifestyle change, diet and exercise -Placed on diabetic diet DVT prop early ambulation Evelin Welsh May 02, 2018 13:46
[2018-05-02] MEDS ORDERED: diphenhydrAMINE HCL 50 MG CAP PO PRN (14:15)
[2018-05-02] MEDS ORDERED: hydrOXYzine HCL 50 MG TAB PO PRN (14:15)
--- NOTE | 2018-05-02 14:20 | HHI.PYPN ---
Subjective Chief Complaint: Charline, overdose Remarks Patient initially admitted by Dr. Hang Mitchell's H&P reviewed and agreed with. I have completed the initial inpatient template admitting orders also med reconciliation done. Patient seen in her room with medical student Stacy Mancera patient sitting in that her bed on marked around state her speech is continued rapid and pressured somewhat silly and grandiose. Though she denies voices and denies suicidality. She states she has been on Cymbalta was unable to give a reason for at 60 mg twice daily though that is not the med reconciliation therefore I will refrain from that medication. She states she lives with her was wishes to go back with him when she is further stabilized. We will continue her on her Zyprexa for now Dr. Mitchell is done first opinion petition supporting [employer] act I agree patient meets criteria for involuntary psychiatric hospitalization under the [employer] act. Thus I will cosign second opinion petition supporting [employer] act Review of Systems Except as stated in HPI: all other systems reviewed are Neg Mental Status Examination Appearance: Appropriate Consciousness: Alert Orientation: Person, Place, Date/Time Motor Activity: Normal gait Speech: Pressured Language: Other (Rambling) Fund of Knowledge: Poor Attention and Concentration: Easily Distracted Memory: Unremarkable Mood: Manic Affect: Other (Expensive) Thought Process & Associations: Loose associations (Prominent) Thought Content: Bizarre thinking, Racing thoughts Hallucination Type: None Delusion Type: None Suicidal Ideation: No Suicidal Plan: No Suicidal Intention: No Homicidal Ideation: No Homicidal Plan: No Homicidal Intention: No Insight: Poor Judgment: Poor Results Labs Test 05/02/18 07:36 White Blood Count 12.4 TH/MM3 Red Blood Count 5.08 MIL/MM3 Hemoglobin 12.8 GM/DL Hematocrit 38.9 % Mean Corpuscular Volume 76.7 FL Mean Corpuscular Hemoglobin 25.2 PG Mean Corpuscular Hemoglobin Concent 32.8 % Red Cell Distribution Width 17.9 % Platelet Count 392 TH/MM3 Mean Platelet Volume 7.8 FL Neutrophils (%) (Auto) 73.9 % Lymphocytes (%) (Auto) 16.9 % Monocytes (%) (Auto) 7.5 % Eosinophils (%) (Auto) 1.5 % Basophils (%) (Auto) 0.2 % Neutrophils # (Auto) 9.2 TH/MM3 Lymphocytes # (Auto) 2.1 TH/MM3 Monocytes # (Auto) 0.9 TH/MM3 Eosinophils # (Auto) 0.2 TH/MM3 Basophils # (Auto) 0.0 TH/MM3 CBC Comment AUTO DIFF Differential Total Cells Counted 100 Neutrophils % (Manual) 66 % Band Neutrophils % 1 % Lymphocytes % 25 % Monocytes % 2 % Eosinophils % 1 % Neutrophils # (Manual) 8.9 TH/MM3 Metamyelocytes 1 % Myelocytes 4 % Differential Comment FINAL DIFF MANUAL Platelet Estimate NORMAL Platelet Morphology Comment NORMAL Red Cell Morphology Comment NORMAL Blood Urea Nitrogen 17 MG/DL Creatinine 0.88 MG/DL Random Glucose 78 MG/DL Total Protein 6.9 GM/DL Albumin 3.2 GM/DL Calcium Level 8.8 MG/DL Alkaline Phosphatase 102 U/L Aspartate Amino Transf (AST/SGOT) 25 U/L Alanine Aminotransferase (ALT/SGPT) 35 U/L Total Bilirubin 0.6 MG/DL Sodium Level 143 MEQ/L Potassium Level 3.4 MEQ/L Chloride Level 110 MEQ/L Carbon Dioxide Level 21.7 MEQ/L Anion Gap 11 MEQ/L Estimat Glomerular Filtration Rate 64 ML/MIN Vitals/IOs Vital Signs Date Time Temp Pulse Resp B/P (MAP) Pulse Ox O2 Delivery O2 Flow Rate FiO2 05/02/18 06:15 99.0 62 16 117/58 (77) 92 04/30/18 18:26 Room Air Intake and Output 05/02/18 05/02/18 05/03/18 08:00 16:00 00:00 Intake Total 240 ml 240 ml Balance 240 ml 240 ml Assessment & Plan Problem List: (1) Bipolar disorder, current episode manic without psychotic features, severe ICD Codes: F31.13 - Bipolar disorder, current episode manic without psychotic features, severe Assessment & Plan Estimated LOS: days patient remains manic and psychotic, though she appears to be somewhat more focused than prior. For now continue medication no change Justification for Cont. Inpt. At this time patient would decompensate placed on a lower level of care Discharge Planning Probable return home with Request HC Surrog/Guard Advoc?: Yes Fredis Nova MD May 02, 2018 14:19
--- NOTE | 2018-05-02 15:40 | PD.TTN ---
Patient Problems 1. Discharge planning 2. Medication compliance 3. Knowledge deficit 4. Lack of coping skills Progress Toward Goals Provider Present: Dr. Shahid Nova Provider Input: 05/02/18 pt is new to provider Nurse(s) Input: 05/02/18 Fiordaliza: reported to have been inappropriate yesterday in dayroom with sexual comments, cooperative and med compliant Psychiatric Counselors Present: Eva Marshall LCSW Psych Therapist Input: 05/02/18 spoke with yesterday who does not agree to the medications she has been seeking from Dr Nieto amphetamines and Benzos, she appeared bizarre, and at times delusional or even manic Group Spec/RT/OT/IZAGUIRRE Present: John Boston OT Group Spec/RT/OT/IZAGUIRRE Input: 05/02/18 new today Eva Marshall LCSW May 02, 2018 15:40
[2018-05-02 17:30] VITALS: BP 129/59; PULSE 76; RESP 16; TEMP 98.2; O2SAT 95
[2018-05-02] MEDS: OLANZapine ODT 5 MG TAB PO SCH (20:12)
[2018-05-03 06:52] VITALS: BP 139/56; PULSE 65; RESP 18; TEMP 98.7; O2SAT 93
[2018-05-03] MEDS: THIAMINE HCL 100 MG TAB PO SCH (09:14)
[2018-05-03] MEDS: FOLIC ACID 1 MG TAB PO SCH (09:14)
[2018-05-03] MEDS: CLOPIDOGREL 75 MG TAB PO SCH (09:14)
[2018-05-03] MEDS: MULTIVITAMINS/MINERALS THERAPEUTIC TAB PO SCH (09:14)
[2018-05-03] MEDS: LISINOPRIL 10 MG TAB PO SCH (09:14)
[2018-05-03] MEDS: THYROID 60 MG TAB PO SCH (09:15)
--- NOTE | 2018-05-03 12:56 | HHI.PR ---
Subjective Remarks Follow-up visit CAD, HTN, hypothyroidism, COPD. Patient is seen and examined in her room in no acute distress. She reports she is doing well and states that she is having dreams regarding Donny figueroa. Is requesting a pen and paper to write down all of her memories and "organize her thoughts". She is alert and oriented to self, place, time. Denies any fevers, chills, nausea, vomiting, diarrhea, cough, shortness of breath, dizziness or chest pain. Objective Vitals Vital Signs Date Time Temp Pulse Resp B/P (MAP) Pulse Ox O2 Delivery O2 Flow Rate FiO2 05/03/18 06:52 98.7 65 18 139/56 (83) 93 05/02/18 17:30 98.2 76 16 129/59 (82) 95 I/O 05/02/18 05/02/18 05/02/18 05/03/18 05/03/18 05/03/18 07:00 15:00 23:00 07:00 15:00 23:00 Intake Total 960 ml 240 ml 780 ml Balance 960 ml 240 ml 780 ml Intake Oral 960 ml 240 ml 780 ml Result Diagram: 05/02/18 0736 05/03/18 0858 Imaging Last Impressions Head CT 04/30/18 1138 Signed Impressions: CONCLUSION: 1. No acute findings. Objective Remarks GENERAL: This is a well-nourished, well-developed patient, in no apparent distress. SKIN: Warm and dry HEENT: Normocephalic. Pupils equal round. Nose without bleeding. Airway patent. NECK: Trachea midline. CARDIOVASCULAR: Regular rate and rhythm 2/6 murmur, no gallops, or rubs. RESPIRATORY: Clear to auscultation. Breath sounds equal bilaterally. No wheezes , rales, or rhonchi. GASTROINTESTINAL: Abdomen soft, non-tender, nondistended. Bowel Sounds normoactive x4. MUSCULOSKELETAL: Extremities without clubbing, cyanosis, or edema. NEUROLOGICAL: Awake and alert. Oriented to place, person, year. No focal neuro deficit. Moves all extremities. Normal speech. A/P Assessment and Plan Patient is a 68-year-old female with known past medical history of HTN, hypothyroidism, HLD, COPD, schizoaffective disorder who initially came into the hospital under [facility] act secondary to medication overdose. As per review of records patient took unknown quantity of Pantoprazole. She is now admitted to inpatient psychiatry unit for further evaluation. Consulted for assistance in medical management. Suicidal intention, bipolar disorder, schizoaffective disorder -Managed by psychiatry team Polypharmacy Altered mental status, increased confusion -Patient is prescribed and outpatient multiple medications that interferes with cognition. Highly addicting medication -Patient is on temazepam, alprazolam, Adderall -We will have psychiatry to wean off patient on some of the medications. -Patient reports she takes multiple drugs secondary to insomnia -Possible withdrawal from medication, Ativan use Hypertension CAD -Continue clonidine as needed, Plavix 75 mg daily, On hydrochlorothiazide 12.5 mg as needed for edema -Continue lisinopril. UA also presented with trace proteinuria -BP improved Hypothyroidism -Continue [place] Thyroid. -TSH within normal Borderline diabetes -Discussed extensively with patient. Lifestyle change, diet and exercise -Placed on diabetic diet Hypokalemia, resolved -Potassium level 4.0 this morning. DVT prop early ambulation Discussed with patient and nursing staff. Suleamn Eid May 03, 2018 12:56
--- NOTE | 2018-05-03 12:59 | HHI.PYPN ---
Subjective Chief Complaint: Charline, overdose Remarks Patient seen in her room with floor staff, patient chart reviewed patient discussed with nurse. Patient continues alert oriented somewhat childlike now focusing on Donny darren banks. She denies voices or visions. We will increase Zyprexa to 5 mg twice daily Review of Systems Except as stated in HPI: all other systems reviewed are Neg Mental Status Examination Appearance: Appropriate Consciousness: Alert Orientation: Person, Place, Date/Time Motor Activity: Normal gait Speech: Pressured Language: Other (Rambling) Fund of Knowledge: Poor Attention and Concentration: Easily Distracted Memory: Unremarkable Mood: Manic Affect: Other (Expensive) Thought Process & Associations: Loose associations (Prominent) Thought Content: Bizarre thinking, Racing thoughts Hallucination Type: None Delusion Type: None Suicidal Ideation: No Suicidal Plan: No Suicidal Intention: No Homicidal Ideation: No Homicidal Plan: No Homicidal Intention: No Insight: Poor Judgment: Poor Results Labs Test 05/03/18 08:58 Potassium Level 4.0 MEQ/L Vitals/IOs Vital Signs Date Time Temp Pulse Resp B/P (MAP) Pulse Ox O2 Delivery O2 Flow Rate FiO2 05/03/18 06:52 98.7 65 18 139/56 (83) 93 04/30/18 18:26 Room Air Intake and Output 05/03/18 05/03/18 05/04/18 08:00 16:00 00:00 Intake Total 780 ml Balance 780 ml Assessment & Plan Problem List: (1) Bipolar disorder, current episode manic without psychotic features, severe ICD Codes: F31.13 - Bipolar disorder, current episode manic without psychotic features, severe Assessment & Plan Estimated LOS: days patient continues somewhat manic though softer she is somewhat delusional at the present time also will increase medications see above Justification for Cont. Inpt. At this time patient would decompensate a place to the lower level of CARE Discharge Planning Return home Request HC Surrog/Guard Advoc?: Yes Fredis Nova MD May 03, 2018 12:59
[2018-05-03 17:56] VITALS: BP 152/65; PULSE 76; RESP 16; TEMP 98.8; O2SAT 94
[2018-05-03] MEDS: OLANZapine ODT 5 MG TAB PO SCH (20:35)
[2018-05-04 06:03] VITALS: BP 170/75; PULSE 73; RESP 16; TEMP 98; O2SAT 93
[2018-05-04] MEDS: FOLIC ACID 1 MG TAB PO SCH (09:31)
[2018-05-04] MEDS: THIAMINE HCL 100 MG TAB PO SCH (09:31)
[2018-05-04] MEDS: THYROID 60 MG TAB PO SCH (09:31)
[2018-05-04] MEDS: MULTIVITAMINS/MINERALS THERAPEUTIC TAB PO SCH (09:32)
[2018-05-04] MEDS: CLOPIDOGREL 75 MG TAB PO SCH (09:32)
[2018-05-04] MEDS: OLANZapine ODT 5 MG TAB PO SCH ×2 (09:32→20:38)
[2018-05-04] MEDS: LISINOPRIL 10 MG TAB PO SCH (09:32)
--- NOTE | 2018-05-04 10:38 | HHI.PR ---
Subjective Remarks Follow-up visit CAD, HTN, hypothyroidism, COPD. Spoke with nurse who does not report any events overnight or this morning. Patient is seen and examined in bed asleep, will arouse to voice and follow commands, but still very sleepy. Denies any pain or discomfort. Objective Vitals Vital Signs Date Time Temp Pulse Resp B/P (MAP) Pulse Ox O2 Delivery O2 Flow Rate FiO2 05/04/18 06:03 98.0 73 16 170/75 (106) 93 05/03/18 17:56 98.8 76 16 152/65 (94) 94 I/O 05/03/18 05/03/18 05/03/18 05/04/18 05/04/18 05/04/18 07:00 15:00 23:00 07:00 15:00 23:00 Intake Total 780 ml 2040 ml Balance 780 ml 2040 ml Intake Oral 780 ml 2040 ml Result Diagram: 05/02/18 0736 05/03/18 0858 Imaging Last Impressions Head CT 04/30/18 1138 Signed Impressions: CONCLUSION: 1. No acute findings. Objective Remarks GENERAL: This is a well-nourished, well-developed patient, in no apparent distress. SKIN: Warm and dry HEENT: Normocephalic. Nose without bleeding. Airway patent. NECK: Trachea midline. CARDIOVASCULAR: Regular rate and rhythm 2/6 murmur, no gallops, or rubs. RESPIRATORY: Clear to auscultation. Breath sounds equal bilaterally. No wheezes , rales, or rhonchi. GASTROINTESTINAL: Abdomen soft, non-tender, nondistended. Bowel Sounds normoactive x4. MUSCULOSKELETAL: Extremities without clubbing, cyanosis, or edema. NEUROLOGICAL: Sleepy but awakens. No focal neuro deficit. Moves all extremities. Normal speech. A/P Assessment and Plan Patient is a 68-year-old female with known past medical history of HTN, hypothyroidism, HLD, COPD, schizoaffective disorder who initially came into the hospital under Turner act secondary to medication overdose. As per review of records patient took unknown quantity of Pantoprazole. She is now admitted to inpatient psychiatry unit for further evaluation. Consulted for assistance in medical management. Suicidal intention, bipolar disorder, schizoaffective disorder -Managed by psychiatry team Polypharmacy Altered mental status, increased confusion -Patient is prescribed and outpatient multiple medications that interferes with cognition. Highly addicting medication -Patient is on temazepam, alprazolam, Adderall -We will have psychiatry to wean off patient on some of the medications. -Reportedly takes multiple drugs secondary to insomnia -Possible withdrawal from medication, Ativan use Hypertension CAD -Continue clonidine as needed, Plavix 75 mg daily, On hydrochlorothiazide 12.5 mg as needed for edema -Continue lisinopril. UA also presented with trace proteinuria -BP elevated this AM, will increase lisinopril to 15mg daily, monitor BP and adjust as needed. Hypothyroidism -Continue [place] Thyroid. -TSH within normal Borderline diabetes -Discussed extensively with patient. Lifestyle change, diet and exercise -Placed on diabetic diet Hypokalemia, resolved -K 4.0 on last check DVT prop early ambulation Discussed with patient and nursing staff. Suleman Eid May 04, 2018 10:38
--- NOTE | 2018-05-04 13:14 | HHI.PYPN ---
Subjective Chief Complaint: Charline, overdose Remarks Patient seen in her room with floor staff, chart reviewed, patient discussed with nurse. Patient calm her affect is decreased in range and intensity speech is slower. She denies suicidality and homicidality voices or visions. He still is some confusion about where she wishes to go when she leaves here an [facility] versus back with family. However at this time I feel patient does have capacity to sign for her hospitalization as well as her medication thus I will lift [employer] act allow patient to sign voluntary Review of Systems Except as stated in HPI: all other systems reviewed are Neg Mental Status Examination Appearance: Appropriate Consciousness: Alert Orientation: Person, Place, Date/Time Motor Activity: Normal gait Speech: Pressured Language: Other (Rambling) Fund of Knowledge: Poor Attention and Concentration: Easily Distracted Memory: Unremarkable Mood: Manic Affect: Other (Expensive) Thought Process & Associations: Loose associations (Prominent) Thought Content: Bizarre thinking, Racing thoughts Hallucination Type: None Delusion Type: None Suicidal Ideation: No Suicidal Plan: No Suicidal Intention: No Homicidal Ideation: No Homicidal Plan: No Homicidal Intention: No Insight: Poor Judgment: Poor Results Vitals/IOs Vital Signs Date Time Temp Pulse Resp B/P (MAP) Pulse Ox O2 Delivery O2 Flow Rate FiO2 05/04/18 06:03 98.0 73 16 170/75 (106) 93 04/30/18 18:26 Room Air Assessment & Plan Problem List: (1) Bipolar disorder, current episode manic without psychotic features, severe ICD Codes: F31.13 - Bipolar disorder, current episode manic without psychotic features, severe Assessment & Plan Estimated LOS: days patient's mood continues to softened, she denies suicidality or homicidality voice or visions. The stomach feel she does have capacity thus I will lift [employer] act allow her to sign voluntary placement still remains somewhat problematic Justification for Cont. Inpt. At this time patient would decompensate a place to the lower level of care Discharge Planning To be determined Request HC Surrog/Guard Advoc?: Yes Fredis Nova MD May 04, 2018 13:14
[2018-05-04 18:06] VITALS: BP 163/70; PULSE 68; RESP 16; TEMP 98.5
[2018-05-05 06:00] VITALS: BP 101/55; PULSE 61; RESP 19; TEMP 98.8; O2SAT 93
[2018-05-05] MEDS: CLOPIDOGREL 75 MG TAB PO SCH (09:00)
[2018-05-05] MEDS: LISINOPRIL 5 MG TAB PO SCH (09:00)
[2018-05-05] MEDS: OLANZapine ODT 5 MG TAB PO SCH ×2 (09:00→21:08)
[2018-05-05] MEDS: MULTIVITAMINS/MINERALS THERAPEUTIC TAB PO SCH (09:00)
[2018-05-05] MEDS: FOLIC ACID 1 MG TAB PO SCH (09:00)
[2018-05-05] MEDS: THYROID 60 MG TAB PO SCH (09:00)
[2018-05-05] MEDS: THIAMINE HCL 100 MG TAB PO SCH (09:00)
--- NOTE | 2018-05-05 12:45 | HHI.PR ---
Subjective Remarks Follow-up visit for CAD, HTN, hypothyroidism and COPD. Spoke with nurse who does not report any acute concerns or events overnight or this morning. Patient is seen and examined in her room in no acute distress. She denies any fevers, chills, nausea, vomiting, diarrhea, shortness of breath, cough, chest pain, dizziness or lightheadedness. Objective Vitals Vital Signs Date Time Temp Pulse Resp B/P (MAP) Pulse Ox O2 Delivery O2 Flow Rate FiO2 05/05/18 06:00 98.8 61 19 101/55 (70) 93 05/04/18 18:06 98.5 68 16 163/70 (101) I/O 05/04/18 05/04/18 05/04/18 05/05/18 05/05/18 05/05/18 07:00 15:00 23:00 07:00 15:00 23:00 Intake Total 0 ml Balance 0 ml Intake Oral 0 ml Result Diagram: 05/02/18 0736 05/03/18 0858 Imaging Last Impressions Head CT 04/30/18 1138 Signed Impressions: CONCLUSION: 1. No acute findings. Objective Remarks GENERAL: This is a well-nourished, well-developed patient, in no apparent distress. SKIN: Warm and dry HEENT: Normocephalic. Nose without bleeding. Airway patent. NECK: Trachea midline. CARDIOVASCULAR: Regular rate and rhythm 2/6 murmur, no gallops, or rubs. RESPIRATORY: Clear to auscultation. Breath sounds equal bilaterally. No wheezes , rales, or rhonchi. GASTROINTESTINAL: Abdomen soft, non-tender, nondistended. Bowel Sounds normoactive x4. MUSCULOSKELETAL: Extremities without clubbing, cyanosis, or edema. NEUROLOGICAL: Awake and alert. No focal neuro deficit. Moves all extremities. Normal speech. A/P Assessment and Plan Patient is a 68-year-old female with known past medical history of HTN, hypothyroidism, HLD, COPD, schizoaffective disorder who initially came into the hospital under Turner act secondary to medication overdose. As per review of records patient took unknown quantity of Pantoprazole. She is now admitted to inpatient psychiatry unit for further evaluation. Consulted for assistance in medical management. Suicidal intention, bipolar disorder, schizoaffective disorder -Managed by psychiatry team Polypharmacy Altered mental status, increased confusion -Patient is prescribed and outpatient multiple medications that interferes with cognition. Highly addicting medication -Patient previously on temazepam, alprazolam, Adderall -Reportedly takes multiple drugs secondary to insomnia -Possible withdrawal from medication, Ativan use -Currently only on Zyprexa Hypertension CAD -Continue clonidine as needed, Plavix 75 mg daily, hydrochlorothiazide 12.5 mg as needed for edema -Continue lisinopril 15 mg daily, BP improved. Hypothyroidism -Continue [place] Thyroid. -TSH within normal Borderline diabetes - Lifestyle change, diet and exercise -Placed on diabetic diet Hypokalemia, resolved -K 4.0 on last check DVT prop early ambulation Discussed with patient and nursing staff. [facility] will sign off, please reconsult if needed. Suleman Eid May 05, 2018 12:45
--- NOTE | 2018-05-05 15:50 | HHI.PYPN ---
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 Patient was calm cooperative showing no signs of charline though there was some mild abstinence. appeared quite caring and concerned about his . For now will continue treatment consider discharge within 24-48 hours Review of Systems Except as stated in HPI: all other systems reviewed are Neg Mental Status Examination Appearance: Appropriate Consciousness: Alert Orientation: Person, Place, Date/Time Motor Activity: Normal gait Speech: Pressured Language: Other (Rambling) Fund of Knowledge: Poor Attention and Concentration: Easily Distracted Memory: Unremarkable Mood: Manic Affect: Other (Expensive) Thought Process & Associations: Loose associations (Prominent) Thought Content: Bizarre thinking, Racing thoughts Hallucination Type: None Delusion Type: None Suicidal Ideation: No Suicidal Plan: No Suicidal Intention: No Homicidal Ideation: No Homicidal Plan: No Homicidal Intention: No Insight: Poor Judgment: Poor Results Vitals/IOs Vital Signs Date Time Temp Pulse Resp B/P (MAP) Pulse Ox O2 Delivery O2 Flow Rate FiO2 05/05/18 06:00 98.8 61 19 101/55 (72) 93 Assessment & Plan Problem List: (1) Bipolar disorder, current episode manic without psychotic features, severe ICD Codes: F31.13 - Bipolar disorder, current episode manic without psychotic features, severe Assessment & Plan Estimated LOS: days patient had continuous with [facility], consider discharge in 1-2 days. Patient denies suicidality homicidality voices or visions Justification for Cont. Inpt. At this time patient would decompensate a place to a lower level of care Discharge Planning Possible discharge 1-2 days Request HC Surrog/Guard Advoc?: Yes Fredis Nova MD May 05, 2018 15:50
[2018-05-05 17:46] VITALS: BP 98/54; PULSE 74; RESP 18; TEMP 98.4
[2018-05-06 05:49] VITALS: BP 107/50; PULSE 65; RESP 16; TEMP 98.7; O2SAT 96
[2018-05-06] MEDS: THIAMINE HCL 100 MG TAB PO SCH (09:18)
[2018-05-06] MEDS: FOLIC ACID 1 MG TAB PO SCH (09:18)
[2018-05-06] MEDS: THYROID 60 MG TAB PO SCH (09:18)
[2018-05-06] MEDS: OLANZapine ODT 5 MG TAB PO SCH ×2 (09:18→20:24)
[2018-05-06] MEDS: MULTIVITAMINS/MINERALS THERAPEUTIC TAB PO SCH (09:19)
[2018-05-06] MEDS: CLOPIDOGREL 75 MG TAB PO SCH (09:19)
[2018-05-06] MEDS: LISINOPRIL 5 MG TAB PO SCH (09:22)
--- NOTE | 2018-05-06 09:27 | HHI.PYPN ---
Subjective Chief Complaint: Charline, overdose Remarks Patient seen in her room medical student Laura, chart reviewed, patient compliant medication. Patient seen laying in bed she is calm, making poor eye contact. Responses are somewhat delayed and somewhat mumbled. This seems to be a little more disorganization today and her responses. Though she does deny suicidality today. For now continue treatment no change Review of Systems Except as stated in HPI: all other systems reviewed are Neg Mental Status Examination Appearance: Appropriate Consciousness: Alert Orientation: Person, Place, Date/Time Motor Activity: Normal gait Speech: Pressured Language: Other (Rambling) Fund of Knowledge: Poor Attention and Concentration: Easily Distracted Memory: Unremarkable Mood: Manic Affect: Other (Expensive) Thought Process & Associations: Loose associations (Prominent) Thought Content: Bizarre thinking, Racing thoughts Hallucination Type: None Delusion Type: None Suicidal Ideation: No Suicidal Plan: No Suicidal Intention: No Homicidal Ideation: No Homicidal Plan: No Homicidal Intention: No Insight: Poor Judgment: Poor Results Vitals/IOs Vital Signs Date Time Temp Pulse Resp B/P (MAP) Pulse Ox O2 Delivery O2 Flow Rate FiO2 05/06/18 05:49 98.7 65 16 107/50 (69) 96 Assessment & Plan Problem List: (1) Bipolar disorder, current episode manic without psychotic features, severe ICD Codes: F31.13 - Bipolar disorder, current episode manic without psychotic features, severe Assessment & Plan Estimated LOS: days patient continues somewhat confused though now her mood is more subdued her affect was decreased range and intensity is a little more disorganized today Justification for Cont. Inpt. At this time patient would decompensate a place to a lower level of care Discharge Planning To be determined possible home with Request HC Surrog/Guard Advoc?: Yes Fredis Nova MD May 06, 2018 09:26
[2018-05-07 05:11] VITALS: BP 115/58; PULSE 70; RESP 16; TEMP 97.6; O2SAT 92
[2018-05-07] MEDS: LISINOPRIL 5 MG TAB PO SCH ×2 (08:58→09:00)
[2018-05-07] MEDS: CLOPIDOGREL 75 MG TAB PO SCH ×2 (08:58→09:00)
[2018-05-07] MEDS: THIAMINE HCL 100 MG TAB PO SCH ×2 (08:59→09:00)
[2018-05-07] MEDS: OLANZapine ODT 5 MG TAB PO SCH ×3 (08:59→20:27)
[2018-05-07] MEDS: THYROID 60 MG TAB PO SCH ×2 (08:59→09:00)
[2018-05-07 11:35] VITALS: BP 127/59; PULSE 62; RESP 14; TEMP 98; O2SAT 94
--- NOTE | 2018-05-07 15:18 | HHI.PYPN ---
Subjective Chief Complaint: Charline, overdose Remarks Patient was seen and case discussed with nursing. Patient is seclusive to her room. Per nursing she has been sleeping excessively and was sedated this morning. For my interview she is alert and talkative. Yet, she refuses to get up and go in the dayroom saying she just enjoys sleeping. Denies any auditory or visual hallucinations. Likely responding to internal stimuli Mental Status Examination Appearance: Appropriate Consciousness: Alert Orientation: Person, Place, Date/Time Motor Activity: Normal gait Speech: Pressured Language: Other (Rambling) Fund of Knowledge: Poor Attention and Concentration: Easily Distracted Memory: Unremarkable Mood: Manic Affect: Other (Expensive) Thought Process & Associations: Loose associations (Prominent) Thought Content: Bizarre thinking, Racing thoughts Hallucination Type: None Delusion Type: None Suicidal Ideation: No Suicidal Plan: No Suicidal Intention: No Homicidal Ideation: No Homicidal Plan: No Homicidal Intention: No Insight: Poor Judgment: Poor Results Vitals/IOs Vital Signs Date Time Temp Pulse Resp B/P (MAP) Pulse Ox O2 Delivery O2 Flow Rate FiO2 05/07/18 11:35 98.0 62 14 127/59 (81) 94 Intake and Output 05/07/18 05/07/18 05/08/18 08:00 16:00 00:00 Intake Total 0 ml Balance 0 ml Assessment & Plan Problem List: (1) Bipolar disorder, current episode manic without psychotic features, severe ICD Codes: F31.13 - Bipolar disorder, current episode manic without psychotic features, severe Assessment & Plan Continue current treatment plan Justification for Cont. Inpt. Patient would decompensate in a less restrictive setting Request HC Surrog/Guard Advoc?: Yes Denton Jimenes DO May 07, 2018 15:18
[2018-05-07 18:00] VITALS: BP 105/55; PULSE 75; RESP 16; TEMP 97.9; O2SAT 92
[2018-05-08 06:42] VITALS: BP 105/84; PULSE 60; RESP 19; TEMP 98.1; O2SAT 98
[2018-05-08] MEDS: THYROID 60 MG TAB PO SCH (08:35)
[2018-05-08] MEDS: THIAMINE HCL 100 MG TAB PO SCH (08:36)
[2018-05-08] MEDS: CLOPIDOGREL 75 MG TAB PO SCH (08:36)
[2018-05-08] MEDS: OLANZapine ODT 5 MG TAB PO SCH (08:37)
[2018-05-08] MEDS: LISINOPRIL 5 MG TAB PO SCH (08:37)
[2018-05-08 11:26] VITALS: BP 119/57; PULSE 61; RESP 14; TEMP 99.4; O2SAT 92
--- NOTE | 2018-05-08 13:23 | HHI.PYPN ---
Subjective Chief Complaint: Charline, overdose Remarks Patient was seen and case discussed with nursing. Nursing continues to be concerned over patient's lethargy throughout the day and especially in the mornings. Patient is spending all day sleeping. She had a mild elevation in temperature she denies any fevers or chills. Denies any psychotic symptoms. Endorses a okay mood. Denies suicidal or homicidal ideation intent or plan Mental Status Examination Appearance: Appropriate Consciousness: Alert Orientation: Person, Place, Date/Time Motor Activity: Normal gait Speech: Pressured Language: Other (Rambling) Fund of Knowledge: Poor Attention and Concentration: Easily Distracted Memory: Unremarkable Mood: Manic Affect: Other (Expensive) Thought Process & Associations: Loose associations (Prominent) Thought Content: Bizarre thinking, Racing thoughts Hallucination Type: None Delusion Type: None Suicidal Ideation: No Suicidal Plan: No Suicidal Intention: No Homicidal Ideation: No Homicidal Plan: No Homicidal Intention: No Insight: Poor Judgment: Poor Results Vitals/IOs Vital Signs Date Time Temp Pulse Resp B/P (MAP) Pulse Ox O2 Delivery O2 Flow Rate FiO2 05/08/18 11:26 99.4 61 14 119/57 (59) 92 Assessment & Plan Problem List: (1) Bipolar disorder, current episode manic without psychotic features, severe ICD Codes: F31.13 - Bipolar disorder, current episode manic without psychotic features, severe Assessment & Plan Order a CBC, continue monitoring temperature and consider medical consult. We will hold Zyprexa this evening given lethargy in the morning Justification for Cont. Inpt. Continue current treatment plan Request HC Surrog/Guard Advoc?: Yes Denton Jimenes DO May 08, 2018 13:23
[2018-05-08 14:50] VITALS: BP 142/65; PULSE 73; RESP 16; TEMP 99.2; O2SAT 96
[2018-05-08 17:01] VITALS: BP 133/56; PULSE 64; RESP 16; TEMP 97.1
[2018-05-08 17:09] VITALS: PULSE 102; O2SAT 96
[2018-05-08 17:21] LABS: AUTOMATED NEUTROPHIL # 6.5 TH/MM3 (1.8-7.7); BASOPHIL # 0.1 TH/MM3 (0-0.2); BASOPHIL % 1.4 % (0.0-2.0); EOSINOPHIL # 0.4 TH/MM3 (0-0.4); EOSINOPHIL % 3.8 % (0.0-4.0); HEMATOCRIT 39.6 % (35.0-46.0); LYMPH % 19.8 % (9.0-44.0); LYMPHOCYTE # 1.9 TH/MM3 (1.0-4.8); MEAN CELL VOLUME 79.2 FL (80.0-100.0); MEAN CORPUSCULAR HEMOGLOBIN 25.9 PG (27.0-34.0); MEAN CORPUSCULAR HGB CONC 32.7 % (32.0-36.0); MEAN PLATELET VOLUME 8.3 FL (7.0-11.0); MONO % 7.6 % (0.0-8.0); MONOCYTE # 0.7 TH/MM3 (0-0.9); NEUT % 67.4 % (16.0-70.0); PLATELET COUNT 303 TH/MM3 (150-450); RED CELL DISTRIBUTION WIDTH 19.4 % (11.6-17.2); WHITE BLOOD COUNT 9.7 TH/MM3 (4.0-11.0)
[2018-05-08 17:45] LABS: ALBUMIN 3.3 GM/DL (3.4-5.0); ALT (GPT) 21 U/L (10-53); AST (GOT) 20 U/L (15-37); BICARBONATE 23.2 MEQ/L (21.0-32.0); BLOOD UREA NITROGEN 15 MG/DL (7-18); CALCIUM 9.3 MG/DL (8.5-10.1); CHLORIDE 111 MEQ/L (98-107); CREATININE 0.99 MG/DL (0.50-1.00); GLOMERULAR FILTRATION RATE 56 ML/MIN (>89); GLUCOSE,RANDOM 110 MG/DL (74-106); SODIUM (NA) 143 MEQ/L (136-145)
[2018-05-08 17:48] LABS: ALKALINE PHOSPHATASE 85 U/L (45-117); TOTAL BILIRUBIN ADULT 0.5 MG/DL (0.2-1.0); TOTAL PROTEIN 7.1 GM/DL (6.4-8.2)
[2018-05-09 06:16] VITALS: BP 107/49; PULSE 68; RESP 16; TEMP 98.4; O2SAT 93
[2018-05-09] MEDS: LISINOPRIL 5 MG TAB PO SCH (07:40)
[2018-05-09] MEDS: THIAMINE HCL 100 MG TAB PO SCH (08:02)
[2018-05-09] MEDS: THYROID 60 MG TAB PO SCH (08:02)
[2018-05-09] MEDS: CLOPIDOGREL 75 MG TAB PO SCH (08:03)
--- NOTE | 2018-05-09 16:43 | HHI.PYPN ---
Subjective Chief Complaint: Charline, overdose Remarks Patient seen and [place] with nurse Lula, chart reviewed, patient compliant medication. Patient more alert today than end of last week, though she is still somewhat confused and disoriented. She did recognize me as her doctor did not know this was [place] did not know the year the date or the location. We will have neurology consult with us to verify any cognitive changes. For now continue treatment Review of Systems Except as stated in HPI: all other systems reviewed are Neg Mental Status Examination Appearance: Appropriate Consciousness: Alert Orientation: Person, Place, Date/Time Motor Activity: Normal gait Speech: Pressured Language: Other (Rambling) Fund of Knowledge: Poor Attention and Concentration: Easily Distracted Memory: Unremarkable Mood: Manic Affect: Other (Expensive) Thought Process & Associations: Loose associations (Prominent) Thought Content: Bizarre thinking, Racing thoughts Hallucination Type: None Delusion Type: None Suicidal Ideation: No Suicidal Plan: No Suicidal Intention: No Homicidal Ideation: No Homicidal Plan: No Homicidal Intention: No Insight: Poor Judgment: Poor Results Labs Test 05/08/18 16:54 White Blood Count 9.7 TH/MM3 Red Blood Count 5.00 MIL/MM3 Hemoglobin 13.0 GM/DL Hematocrit 39.6 % Mean Corpuscular Volume 79.2 FL Mean Corpuscular Hemoglobin 25.9 PG Mean Corpuscular Hemoglobin Concent 32.7 % Red Cell Distribution Width 19.4 % Platelet Count 303 TH/MM3 Mean Platelet Volume 8.3 FL Neutrophils (%) (Auto) 67.4 % Lymphocytes (%) (Auto) 19.8 % Monocytes (%) (Auto) 7.6 % Eosinophils (%) (Auto) 3.8 % Basophils (%) (Auto) 1.4 % Neutrophils # (Auto) 6.5 TH/MM3 Lymphocytes # (Auto) 1.9 TH/MM3 Monocytes # (Auto) 0.7 TH/MM3 Eosinophils # (Auto) 0.4 TH/MM3 Basophils # (Auto) 0.1 TH/MM3 CBC Comment DIFF FINAL Differential Comment Blood Urea Nitrogen 15 MG/DL Creatinine 0.99 MG/DL Random Glucose 110 MG/DL Total Protein 7.1 GM/DL Albumin 3.3 GM/DL Calcium Level 9.3 MG/DL Alkaline Phosphatase 85 U/L Aspartate Amino Transf (AST/SGOT) 20 U/L Alanine Aminotransferase (ALT/SGPT) 21 U/L Total Bilirubin 0.5 MG/DL Sodium Level 143 MEQ/L Potassium Level 4.0 MEQ/L Chloride Level 111 MEQ/L Carbon Dioxide Level 23.2 MEQ/L Anion Gap 9 MEQ/L Estimat Glomerular Filtration Rate 56 ML/MIN Vitals/IOs Vital Signs Date Time Temp Pulse Resp B/P (MAP) Pulse Ox O2 Delivery O2 Flow Rate FiO2 05/09/18 06:16 98.4 68 16 107/49 (68) 93 Intake and Output 05/09/18 05/09/18 05/10/18 08:00 16:00 00:00 Intake Total 240 ml Balance 240 ml Assessment & Plan Problem List: (1) Bipolar disorder, current episode manic without psychotic features, severe ICD Codes: F31.13 - Bipolar disorder, current episode manic without psychotic features, severe Assessment & Plan Estimated LOS: days patient is somewhat more alert though is showing some increased disorientation to time place and situation we will get neurology consult Justification for Cont. Inpt. At this time patient would decompensate a place to a lower level of care Discharge Planning To be determined Request HC Surrog/Guard Advoc?: Yes Fredis Nova MD May 09, 2018 16:43
[2018-05-09 18:54] VITALS: BP 110/59; PULSE 75; RESP 16; TEMP 97.6; O2SAT 94
[2018-05-10] MEDS: THYROID 60 MG TAB PO SCH (06:10)
[2018-05-10 06:42] VITALS: BP 113/54; PULSE 60; RESP 18; TEMP 97.7; O2SAT 94
[2018-05-10] MEDS: LISINOPRIL 5 MG TAB PO SCH (08:08)
[2018-05-10] MEDS: THIAMINE HCL 100 MG TAB PO SCH (08:08)
[2018-05-10] MEDS: CLOPIDOGREL 75 MG TAB PO SCH (08:09)
--- NOTE | 2018-05-10 13:18 | HHI.PYPN ---
Subjective Chief Complaint: Charline, overdose Remarks Patient is seen in her room with nurse Namita, the patient's son. Patient's son was noticed some cognitive changes with his mother is having some spotty memory issues related to short-term memory. This does concern him. With us patient remains alert also diffusely confused but no behavioral issues. She is able to process and discuss placement issues willing to return home with family or perhaps be placed in an [facility] Review of Systems Except as stated in HPI: all other systems reviewed are Neg Mental Status Examination Appearance: Appropriate Consciousness: Alert Orientation: Person, Place, Date/Time Motor Activity: Normal gait Speech: Pressured Language: Other (Rambling) Fund of Knowledge: Poor Attention and Concentration: Easily Distracted Memory: Unremarkable Mood: Manic Affect: Other (Expensive) Thought Process & Associations: Loose associations (Prominent) Thought Content: Bizarre thinking, Racing thoughts Hallucination Type: None Delusion Type: None Suicidal Ideation: No Suicidal Plan: No Suicidal Intention: No Homicidal Ideation: No Homicidal Plan: No Homicidal Intention: No Insight: Poor Judgment: Poor Results Vitals/IOs Vital Signs Date Time Temp Pulse Resp B/P (MAP) Pulse Ox O2 Delivery O2 Flow Rate FiO2 05/10/18 06:42 97.7 60 18 113/54 (34) 94 Assessment & Plan Problem List: (1) Bipolar disorder, current episode manic without psychotic features, severe ICD Codes: F31.13 - Bipolar disorder, current episode manic without psychotic features, severe Assessment & Plan Estimated LOS: days patient somewhat calmer today though also somewhat confused , but no behavioral issues. For now continue treatment we will await neurology consult Justification for Cont. Inpt. At this time patient would decompensate a place to a lower level of care Discharge Planning Probable return home with her perhaps to an [facility] Request HC Surrog/Guard Advoc?: Yes Fredis Nova MD May 10, 2018 13:18
[2018-05-10 18:09] VITALS: BP 104/44; PULSE 74; RESP 16; TEMP 97.1; O2SAT 90
[2018-05-11] MEDS: THYROID 60 MG TAB PO SCH (05:27)
[2018-05-11] MEDS: CLOPIDOGREL 75 MG TAB PO SCH (08:11)
[2018-05-11] MEDS: THIAMINE HCL 100 MG TAB PO SCH (08:11)
[2018-05-11] MEDS: LISINOPRIL 5 MG TAB PO SCH (08:14)
--- NOTE | 2018-05-11 09:16 | HHI.PYPN ---
Subjective Chief Complaint: Charline, overdose Remarks Patient seen in her room with floor staff, patient in bed with covers to her chin napping. Chart reviewed. Patient showing mixed compliance medication. Patient easily arousable called me the "enemy" she is somewhat confused as to where she is and where she wants to go when she is discharged for now we will restart Zyprexa at 5 mg at bedtime Review of Systems Except as stated in HPI: all other systems reviewed are Neg Mental Status Examination Appearance: Appropriate Consciousness: Alert Orientation: Person, Place, Date/Time Motor Activity: Normal gait Speech: Pressured Language: Other (Rambling) Fund of Knowledge: Poor Attention and Concentration: Easily Distracted Memory: Unremarkable Mood: Manic Affect: Other (Expensive) Thought Process & Associations: Loose associations (Prominent) Thought Content: Bizarre thinking, Racing thoughts Hallucination Type: None Delusion Type: None Suicidal Ideation: No Suicidal Plan: No Suicidal Intention: No Homicidal Ideation: No Homicidal Plan: No Homicidal Intention: No Insight: Poor Judgment: Poor Results Vitals/IOs Vital Signs Date Time Temp Pulse Resp B/P (MAP) Pulse Ox O2 Delivery O2 Flow Rate FiO2 05/10/18 18:09 97.1 74 16 104/44 (48) 90 Assessment & Plan Problem List: (1) Bipolar disorder, current episode manic without psychotic features, severe ICD Codes: F31.13 - Bipolar disorder, current episode manic without psychotic features, severe Assessment & Plan Estimated LOS: days patient continues psychotic with somewhat decreased range and intensity of her affect, she medication adjustment above Justification for Cont. Inpt. At this time patient would decompensate a place to a lower level of care Discharge Planning To be determined Request HC Surrog/Guard Advoc?: Yes Fredis Nova MD May 11, 2018 09:16
[2018-05-11 18:02] VITALS: BP 133/64; PULSE 85; RESP 16; TEMP 97.1; O2SAT 92
[2018-05-11] MEDS: OLANZapine 5 MG TAB PO SCH (21:07)
[2018-05-12] MEDS: THYROID 60 MG TAB PO SCH (06:00)
[2018-05-12 06:40] VITALS: BP 119/54; PULSE 68; RESP 18; TEMP 98.5; O2SAT 96
[2018-05-12] MEDS: LISINOPRIL 5 MG TAB PO SCH (08:42)
[2018-05-12] MEDS: CLOPIDOGREL 75 MG TAB PO SCH (08:42)
[2018-05-12] MEDS: THIAMINE HCL 100 MG TAB PO SCH (08:42)
--- NOTE | 2018-05-12 12:23 | HHI.PYPN ---
Subjective Chief Complaint: Charline, overdose Remarks Patient seen in day room patient is sitting with her son. Patient somewhat more alert focused but continues diffusely confused did not recognize me as a doctor but did not remember my name. She did not remember her son's name. She knew she was in the state of [place] but cannot localize it any further. We still not in the neurology consult, we are awaiting the neuropsych consult. In the meantime I have ordered an MRI of the brain. Patient compliant medications Review of Systems Except as stated in HPI: all other systems reviewed are Neg Mental Status Examination Appearance: Appropriate Consciousness: Alert Orientation: Person, Place, Date/Time Motor Activity: Normal gait Speech: Pressured Language: Other (Rambling) Fund of Knowledge: Poor Attention and Concentration: Easily Distracted Memory: Unremarkable Mood: Manic Affect: Other (Expensive) Thought Process & Associations: Loose associations (Prominent) Thought Content: Bizarre thinking, Racing thoughts Hallucination Type: None Delusion Type: None Suicidal Ideation: No Suicidal Plan: No Suicidal Intention: No Homicidal Ideation: No Homicidal Plan: No Homicidal Intention: No Insight: Poor Judgment: Poor Results Vitals/IOs Vital Signs Date Time Temp Pulse Resp B/P (MAP) Pulse Ox O2 Delivery O2 Flow Rate FiO2 05/12/18 06:40 98.5 68 18 119/54 (75) 96 Intake and Output 05/12/18 05/12/18 05/13/18 08:00 16:00 00:00 Intake Total 360 ml Balance 360 ml Assessment & Plan Problem List: (1) Bipolar disorder, current episode manic without psychotic features, severe ICD Codes: F31.13 - Bipolar disorder, current episode manic without psychotic features, severe Assessment & Plan Estimated LOS: days patient is somewhat more alert, is calm at this time though diffusely confused. She labs ordered above continue to await both neurology and neuro psychology consults Justification for Cont. Inpt. At this time patient would decompensate a place to a lower level of care Discharge Planning To be determined Request HC Surrog/Guard Advoc?: Yes Fredis Nova MD May 12, 2018 12:23
[2018-05-12 16:32] VITALS: BP 111/52; PULSE 68; RESP 17; TEMP 98.6; O2SAT 96
[2018-05-12] MEDS: OLANZapine 5 MG TAB PO SCH (20:28)
--- NOTE | 2018-05-12 20:34 | MB ---
cc: Bk Reis MD, PhD DATE: 05/12/2018 REASON FOR CONSULTATION: Cognitive deficits. HISTORY OF PRESENT ILLNESS: Ms. Gray is a very pleasant 68-year-old woman who was admitted to the hospital on 04/30/2018 with an episode of otoniel with psychosis. Patient has a history of schizoaffective disorder. She was admitted under a Turner Act by law enforcement with an alleged overdose. It has been noted that the patient has had cognitive deficits and the Neurology consult was requested. The patient denies any memory loss or confusion. CURRENT MEDICATIONS: Zyprexa 5 mg daily, [place] Thyroid 60 mg daily, lisinopril 15 mg daily, Plavix 75 mg daily, thiamine, Tessalon, Microzide, flumazenil, Ativan p.r.n., Catapres p.r.n., Tylenol p.r.n. PHYSICAL EXAMINATION: VITAL SIGNS: Blood pressure 111/52, pulse is 68, temperature 98.6 degrees. NEUROLOGIC: Higher cortical functions. She is alert. She is disoriented to date and place. She recalls 0/3 objects in 3 minutes. Her remote memory is poor. She appears to have some language difficulty, making paraphasic errors. She has trouble naming objects and parts of objects. She could name a pen, but she could not name parts of the pen such as clip. She was unable to name a watch. [place] Word Fluency is 5 with the letter S. Calculations are poor. There is no neglect. Cranial nerves are intact. Motor exam is 5/5 strength of all groups. There is no drift. Reflexes are symmetric. Gait is normal. IMAGING: CT of the brain is normal. LABORATORY DATA: The white count is 9700, hemoglobin 13, hematocrit 39.6%, platelet count 303,000. Sodium is 143, potassium is 4, chloride 111, CO2 is 23.2, BUN is 15, creatinine 0.9, GFR 56, AST 20, ALT 21. IMPRESSION: The patient has evidence of dementia. She has prominent language difficulties, which raises the concern of a possible Alzheimer's type dementia. RECOMMENDATION: I would like to get an MRI of the brain, as well as an EEG. Additional labs, including a B12 level and serum cryptococcal antigen. Consider a trial of Aricept 5 mg daily. Bk Reis MD, PhD REYMUNDO/PAUL , 08:17 PM , 08:33 PM
[2018-05-12] MEDS ORDERED: GADODIAMIDE PF 287 MG/ML 5 ML VIAL (for RAD MRI) IVCONTRAST ONE (22:29)
--- NOTE | 2018-05-12 22:50 | RADRPT ---
EXAM DATE: 05/12/2018 10:42 PM EDT AGE/SEX: 68 years / Female INDICATIONS: . Psychosis CLINICAL DATA: This is the patient's initial encounter. Patient reports that signs and symptoms have been present for 1 day and indicates a pain score of 2/10. MEDICAL/SURGICAL HISTORY: Hypercholesterolemia. Hypertension. Chronic obstructive pulmonary d isease. None. COMPARISON: CT brain 04/30/2018. TECHNIQUE: Multiplanar, multisequence examination of the brain was performed without and with 15 ml O mniscan (gadodiamide) contrast as a single exam dose. FINDINGS: Cerebrum: 1.5 cm oval-shaped area of high FLAIR signal abnormality within the left thalamus. The jan tricles are normal for age. No evidence of midline shift, mass lesion, hemorrhage or acute infarctio n. No extraaxial fluid collections are seen. The pituitary gland and suprasellar cistern are normal in configuration. White Matter: Scattered foci of high FLAIR signal abnormality involving the periventricular white ma tter both cerebral hemispheres.. Posterior Fossa: The cerebellum and brainstem are intact. The 4th ventricle is midline. The cerebel lopontine angle is unremarkable. The cerebellar tonsils are normal in position. Diffusion Imaging: At 1.5 cm focus of high FLAIR signal with associated restricted diffusion involvi ng the left thalamus.. Extracranial: The visualized portions of the orbits and paranasal sinuses are unremarkable. Post Contrast: No abnormal areas of parenchymal or dural enhancement. No evidence of blood-brain ba rrier breakdown. CONCLUSION: 1. Acute nonhemorrhagic infarction involving the left thalamus. Electronically signed by: Mario Rush MD 05/12/2018 10:49 PM EDT
[2018-05-13] MEDS: THYROID 60 MG TAB PO SCH (05:56)
[2018-05-13 06:35] VITALS: BP 108/49; PULSE 63; RESP 16; TEMP 98.1; O2SAT 93
[2018-05-13 08:49] VITALS: BP 122/85; PULSE 64; RESP 16; TEMP 98.4; O2SAT 94
[2018-05-13] MEDS: LISINOPRIL 5 MG TAB PO SCH (09:00)
[2018-05-13] MEDS ORDERED: ASPIRIN 325 MG TAB PO SCH (09:00)
[2018-05-13] MEDS: CLOPIDOGREL 75 MG TAB PO SCH (09:13)
[2018-05-13] MEDS: THIAMINE HCL 100 MG TAB PO SCH (09:13)
--- NOTE | 2018-05-13 10:35 | HHI.DS ---
Psychiatry Discharge Summary Inpatient Psychiatric care?: Yes Advance Directive: No Reason Not Provided: REFUSED Mental Health AdvanceDirective: No Health Care Proxy: No Admission Admission Date Apr 30, 2018 at 18:04 Admission Diagnosis: (1) Bipolar disorder, current episode manic without psychotic features, severe ICD Code: F31.13 - Bipolar disorder, current episode manic without psychotic features, severe Brief History Ms. Gray is a 68-year-old female with a reported history of depression versus bipolar disorder and a chart history of schizoaffective disorder who presents under a Turner act by law enforcement alleging overdose. According to the ED provider note, patient ingested an unknown quantity of pantoprazole. Patient was seen by the psychiatric nurse practitioner in the ED. Reviewing the electronic medical record, I note the patient was [place] [address] Lewis with an episode of psychosis. Patient seen and examined with nurse. Chart reviewed. Case discussed with nursing staff. Case discussed with counselor who has obtained collateral information from patient's to the effect that the patient has been overusing medications prescribed to her by her outpatient provider, see below. On my examination today, the patient is hyperkinetic, hyperverbal with pressured speech, disinhibited, impulsive. She includes many extraneous details in her narrative and also makes nonsensical verbalizations at times. When I inquire about presenting overdose the patient says "I might have. Lotsa cocktails, but God's not ready for me to alvarez." Patient cannot say what she took or how much. She does say that she is happy to have survived and does not describe any ongoing desire to harm herself. She does say, "I'd like to kick the bunghole of the man who killed my dog" 8-10 years ago. Mood is "happy happy !" No audiovisual hallucinations. No delusional material. Some sexual preoccupation noted, and patient does say that she loves a variety of famous men , such as [place], "but not in a sexual way." Psychiatric interview is somewhat limited because of patient's manic state. No acute physical complaints. Past psychiatric history: Patient reports history of major depressive disorder/ bipolar disorder. She is treated on an outpatient basis by Dr. Herrera. She reports that she was psychiatrically admitted 4 years ago (i.e. here) and was admitted perhaps one time before that. She denies any history of suicide attempts. Family history: The patient reports that her mother had bipolar illness. She denies any family history of suicide. Chemical dependency history: The patient initially replies "adan adan adan! Bhanu bhanu bhanu!" when I ask about substance use. She does admit somewhat later that she has been abusing substances saying that she is using "cocktail, cocktail!" Social history: Patient lives with her . She has 2 sons. 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 Unclear whether patient has any or legal history. She denies any access to guns or firearms. She does allude to a childhood history of trauma but reports no PTSD symptoms at this time. When I ask about evangelical beliefs she says that she shares her father's beliefs, namely "Shinto , New world order type mandaeism. My father believes there are 10 gods." E-FORCSE report reviewed: Rx Fill Date Drug Name Qty Days Prescriber Last Name 04/13/2018 TEMAZEPAM 30 MG CAPSULE 30 30 MD LISA 04/13/2018 ALPRAZOLAM 2 MG TABLET 30 30 MD LISA 04/13/2018 DEXTROAMP-AMPHETAMIN 20 MG TAB 60 30 MD LISA 03/16/2018 ALPRAZOLAM 2 MG TABLET 30 30 MD LISA 03/16/2018 TEMAZEPAM 30 MG CAPSULE 30 30 MD LISA 03/16/2018 DEXTROAMP-AMPHETAMIN 20 MG TAB 60 30 MD LISA 02/10/2018 TEMAZEPAM 30 MG CAPSULE 30 30 Lisa 02/10/2018 ALPRAZOLAM 2 MG TABLET 30 30 Lisa 02/10/2018 DEXTROAMP-AMPHETAMIN 20 MG TAB 60 30 Raimonddelia 01/13/2018 ESZOPICLONE 3 MG TABLET 30 30 imonddelia 01/13/2018 DEXTROAMP-AMPHETAMIN 20 MG TAB 60 30 Lisa 01/13/2018 ALPRAZOLAM 2 MG TABLET 30 30 Raimondo 12/07/2017 DEXTROAMP-AMPHETAMIN 20 MG TAB 60 30 imdavido 12/06/2017 ALPRAZOLAM 2 MG TABLET 30 30 Lisa 12/06/2017 ESZOPICLONE 3 MG TABLET 30 30 Lisa 11/07/2017 ESZOPICLONE 3 MG TABLET 30 30 Raimondo 11/07/2017 DEXTROAMP-AMPHETAMIN 20 MG TAB 60 30 Raimondo 11/07/2017 ALPRAZOLAM 2 MG TABLET 30 30 Raimondo 10/09/2017 ALPRAZOLAM 2 MG TABLET 30 30 Raimondo 10/09/2017 ESZOPICLONE 3 MG TABLET 30 30 Raimondo 10/09/2017 DEXTROAMP-AMPHETAMIN 20 MG TAB 60 30 Raimondo 09/09/2017 ALPRAZOLAM 2 MG TABLET 30 30 Raimondo 09/09/2017 DEXTROAMP-AMPHETAMIN 20 MG TAB 60 30 Raimondo 09/09/2017 ESZOPICLONE 3 MG TABLET 30 30 Raimondo 07/30/2017 DEXTROAMP-AMPHETAMIN 20 MG TAB 60 30 Raimondo 07/30/2017 ESZOPICLONE 3 MG TABLET 30 30 Raimondo 07/29/2017 ALPRAZOLAM 2 MG TABLET 30 30 Raimondo 07/04/2017 ALPRAZOLAM 2 MG TABLET 30 30 Raimondo 07/04/2017 DEXTROAMP-AMPHETAMIN 20 MG TAB 60 30 Raimondo 07/02/2017 ESZOPICLONE 3 MG TABLET 30 30 Raimondo 06/06/2017 DEXTROAMP-AMPHETAMIN 20 MG TAB 60 30 Raimondo 06/06/2017 ZOLPIDEM TARTRATE 10 MG TABLET 30 30 Raimondo 06/06/2017 ALPRAZOLAM 2 MG TABLET 30 30 Raimondo 05/05/2017 ALPRAZOLAM 2 MG TABLET 30 30 Raimondo 05/05/2017 ZOLPIDEM TARTRATE 10 MG TABLET 30 30 Raimondo 05/05/2017 DEXTROAMP-AMPHETAMIN 20 MG TAB 60 30 Raimondo Tobacco Use In Past 30 Days: No Tobacco Past 30 Days Alcohol Use: Never Hospital Course Outpatient being treated psychiatric unit and MRI was done to assess the possibility of a stroke. The MRI done yesterday showed small nonhemorrhagic infarct left parietal area medicine service and neurology were consulted patient was discharged from psych today to be a direct admission to the medicine unit patient was conscious and verbal Results Blood Pressure 122 / 85 Vital Signs Date Time Temp Pulse Resp B/P (MAP) Pulse Ox O2 Delivery O2 Flow Rate FiO2 05/13/18 08:49 98.4 64 16 122/85 (97) 94 Laboratory Tests Test 05/13/18 09:03 Laboratory Results Test 05/01/18 08:32 Cholesterol Level 186 MG/DL (120-200) HDL Cholesterol 60.5 MG/DL (40.0-60.0) Hemoglobin A1c 6.4 % (4.3-6.0) LDL Cholesterol 102 MG/DL (0-99) Triglycerides Level 118 MG/DL (42-150) Summary of Procedures None done Imaging Last Impressions Brain MRI 05/12/18 0000 Signed Impressions: CONCLUSION: 1. Acute nonhemorrhagic infarction involving the left thalamus. Head CT 04/30/18 1138 Signed Impressions: CONCLUSION: 1. No acute findings. Pending results at discharge: No Medications # of Antipsychotic meds at D/C: 0 Approp Antipsych med options 1 - Minimum of three failed multiple trials of monotherapy. 2 - Documented plan to taper to monotherapy due to previous use of multiple meds OR cross-taper in progress at D/C. 3 - Documentation of augmentation of Clozapine. 4 - Justification other than those listed in allowable values 1-3, document here : Discharge Discharge Date: May 13, 2018 Discharge Diagnosis: (1) Bipolar disorder, current episode manic without psychotic features, severe Diagnosis: Principal ICD Code: F31.13 - Bipolar disorder, current episode manic without psychotic features, severe Pt Condition on Discharge: Guarded Discharge Disposition: Disch to Another Hospital Discharge Instructions Diet Instructions: Heart Healthy Diet Activities you can perform: See Additionl Instruction Other Activity Instructions: Per medical attending physician Scheduled Appointment: Transfer [facility] inpatient medical service Discharge Time > 30 minutes Mental Status Examination Appearance: Appropriate Consciousness: Alert Orientation: Person, Place, Date/Time Motor Activity: Normal gait Speech: Pressured Language: Other (Rambling) Fund of Knowledge: Poor Attention and Concentration: Easily Distracted Memory: Unremarkable Mood: Manic Affect: Other (Expensive) Thought Process & Associations: Loose associations (Prominent) Thought Content: Bizarre thinking, Racing thoughts Hallucination Type: None Delusion Type: None Suicidal Ideation: No Suicidal Plan: No Suicidal Intention: No Homicidal Ideation: No Homicidal Plan: No Homicidal Intention: No Insight: Poor Judgment: Poor Discharge/Advance Care Plan Health Problems: (1) Bipolar disorder, current episode manic without psychotic features, severe Goals to promote your health * To prevent worsening of your condition and complications * To maintain your health at the optimal level Directions to meet your goals Take your medications as prescribed Follow your dietary instruction Follow activity as directed Keep your appointments as scheduled Take your immunizations and boosters as scheduled If your symptoms worsen call your PCP, if no PCP go to Urgent Care Center or Emergency Room For 14/06 questions related to your inpatient stay or results of tests pending at discharge, please contact Dr. Fredis Noav at Smoking is Dangerous to Your Health. Avoid second hand smoking Fredis Nova MD May 13, 2018 10:35
--- NOTE | 2018-05-13 13:11 | RADRPT ---
EXAM DATE: 05/13/2018 12:55 PM EDT AGE/SEX: 68 years / Female INDICATIONS: Acute infarct. CLINICAL DATA: This is the patient's initial encounter. Patient reports that signs and symptoms have been present for 1 day and indicates a pain score of 0/10. MEDICAL/SURGICAL HISTORY: Hypercholesterolemia. Hypertension. Gastroesophageal reflux disease . Thyroid disease. COPD. Anxiety. . Thyroid biopsy. COMPARISON: No prior exams available for comparison. VELOCITY PARAMETERS: ICA/CCA Ratio: Right 1.1 , Left 2.2 ICA: Right 103.7 cm/sec, Left 155.3 cm/sec CCA: Right 96.0 cm/sec, Left 71.3 cm/sec ECA: Right 238.4 cm/sec, Left 272.2 cm/sec Vertebral: Right 35.1 cm/sec antegrade, Left 90.7 cm/sec antegrade FINDINGS: RIGHT CAROTID: There is no evidence for a hemodynamically significant carotid stenosis. Minimal int imal hyperplasia is present with scattered calcific plaque. LEFT CAROTID: There is a borderline significant carotid stenosis. Moderate intimal hyperplasia is pr esent with scattered calcific plaque. Flow is antegrade in both vertebral arteries. Left vertebral dominant. There are no ancillary masses or adenopathy. CONCLUSION: Borderline significant stenosis on the left with ratios of 2.2 and mildly elevated velocities. Moderate calcific plaque. Either CT angiography or MR angiography may be of benefit. Sunny Pollack MD FACR Electronically signed by: Sunny Pollack MD 05/13/2018 1:10 PM EDT
== END 2018-05-13 10:50 | disposition designated cancer center or children's hospital (05) | DRG 885 ==
LOC: NEPC 11:14 → NEDA 18:04 → H260 19:38 → H250 21:08
PROVIDERS: ADMIT Psychiatry & Neurology Psychiatry; ATTEND Psychiatry & Neurology Psychiatry
DX: F31.2 Bipolar disorder, current episode manic severe with psychotic features (principal); I63.9 Cerebral infarction, unspecified; F03.90 Unspecified dementia, unspecified severity, without behavioral disturbance, psychotic disturbance, mood disturbance, and anxiety; I10 Essential (primary) hypertension; J43.9 Emphysema, unspecified; E78.5 Hyperlipidemia, unspecified; T47.1X2A Poisoning by other antacids and anti-gastric-secretion drugs, intentional self-harm, initial encounter; E03.9 Hypothyroidism, unspecified; G47.00 Insomnia, unspecified; I25.10 Atherosclerotic heart disease of native coronary artery without angina pectoris; R73.03 Prediabetes; E87.6 Hypokalemia; F17.200 Nicotine dependence, unspecified, uncomplicated; Z81.8 Family history of other mental and behavioral disorders; Z88.5 Allergy status to narcotic agent; Z91.030 Bee allergy status
CPT/HCPCS: 70450; 70553; 80048; 80053; 80061; 80307; 81001; 82607; 83036; 84132; 84443; 85007; 85025; 85027; 87899; 93005; 93880; 99285; A9579

== ENCOUNTER 2018-05-13 09:44 | Inpatient (IN) | payer BC, MEDICARE ==
[~2018-05-13 09:44] MED LIST changes: -ADDE10 PO; +ADDE20 PO; -ADDE20XR PO; +BENZ100 PO; +CEFU1TAB18 PO; -CYMB60CA PO; +HYDR12.57 PO; -HYDRO25 PO; -KCL20 PO; -LASI20TA PO; +LEVS0.123 PO; -OMPR20CCR PO; +PLAV75TA29 PO; +PRED10 PO; -PRED2.5T4 PO; +PROT40TA PO; -SOMA350T PO; -TRAZ150T2 PO; +XANA2TAB2 PO
--- NOTE | 2018-05-13 11:58 | HHI.HP ---
[facility] Service [place] [facility] Primary Care Physician No Primary Care Physician Admission Diagnosis CVA Diagnoses: (1) CVA (cerebral vascular accident) (2) Hypothyroidism (3) Hypertension (4) COPD (chronic obstructive pulmonary disease) (5) Hyperlipidemia Chief Complaint: Difficulty speaking Travel History International Travel<30 Days: No Contact w/Intl Traveler <30 Da: No History of Present Illness The patient is a 68-year-old female who was admitted to inpatient psychiatry for management of bipolar disorder with psychotic features. She was noted to have cognitive deficits and difficulty with speech. Neurology was consulted. MRI of the brain was ordered, and it showed acute nonhemorrhagic infarction involving the left thalamus. At the time of my examination, the patient has no complaints. Her speech is clear. She denies chest pain, dyspnea, headache, vision changes. She denies numbness/tingling/weakness of her extremities. Review of Systems Constitutional: DENIES: Fever, Chills, Night Sweats Eyes: DENIES: Blurred vision, Vision loss Ears, nose, mouth, throat: DENIES: Hearing loss Respiratory: DENIES: Cough, Wheezing, Sputum production, Shortness of breath Cardiovascular: DENIES: Chest pain, Palpitations, Dyspnea on Exertion, Lower Extremity Edema Gastrointestinal: DENIES: Abdominal pain, Constipation, Diarrhea, Nausea, Vomiting Genitourinary: DENIES: Urinary frequency, Urinary incontinence, Urgency, Hematuria, Dysuria, Nocturia Musculoskeletal: DENIES: Joint pain, Muscle aches Integumentary: DENIES: Pruritus, Rash Hematologic/lymphatic: DENIES: Bruising Neurologic: DENIES: Headache Past Family Social History Past Medical History Hypertension Hyperlipidemia Hypothyroidism COPD Schizoaffective disorder Past Surgical History Breast biopsy Oophorectomy Reported Medications See list Allergies: Coded Allergies: bee venom protein (honey bee) (Unverified Allergy, Intermediate, Chest Pain, 07/06/17) MAKES HER CHEST FEEL TIGHT codeine (Unverified Allergy, Intermediate, Nausea/Vomiting, 07/06/17) Family History The patient denies significant family medical history. Per review of the electronic medical record, documentation indicates that her mother has history of hypertension and diabetes. Father has history of thyroid disease. Social History Denies alcohol, tobacco, or illicit drug use. Physical Exam Physical Exam Examined in the presence of the nurse. GENERAL: Obese female in no acute distress. HEENT: Normocephalic, atraumatic. Pupils equal, round and reactive. Extraocular movements intact. No scleral icterus. No injection or drainage. Oropharynx is clear. Mucous membranes are moist. CARDIOVASCULAR: Regular rate and rhythm without murmurs, gallops, or rubs. RESPIRATORY: Clear to auscultation. No wheezes, rales, or rhonchi. Breathing is non-labored. GASTROINTESTINAL: Abdomen soft, non-tender, nondistended. EXTREMITIES: No lower extremity edema. No calf tenderness. PSYCH: Alert and oriented x 3. NEURO: Cranial nerves II through XII are grossly intact. Caprini VTE Risk Assessment Caprini VTE Risk Assessment: Mod/High Risk (score >= 2) Caprini Risk Assessment Model Point Value = 1 Point Value = 2 Point Value = 3 Point Value = 5 Age 41-60 Minor surgery BMI > 25 kg/m2 Swollen legs Varicose veins or History of unexplained or recurrent spontaneous Oral contraceptives or hormone replacement Sepsis (< 1 month) Serious lung disease, including pneumonia (< 1 month) Abnormal pulmonary function Acute myocardial infarction Congestive heart failure (< 1 month) History of inflammatory bowel disease Medical patient at bed rest Age 61-74 Arthroscopic surgery Major open surgery (> 45 min) Laparoscopic surgery (> 45 min) Malignancy Confined to bed (> 72 hours) Immobilizing plaster cast Central venous access Age >= 75 History of VTE Family history of VTE Factor V Leiden Prothrombin [id number] Lupus anticoagulant Anticardiolipin antibodies Elevated serum homocysteine Heparin-induced thrombocytopenia Other congenital or acquired thrombophilia Stroke (< 1 month) Elective arthroplasty Hip, pelvis, or leg fracture Acute spinal cord injury (< 1 month) Prophylaxis Regimen Total Risk Factor Score Risk Level Prophylaxis Regimen 0-1 Low Early ambulation 2 Moderate Order ONE of the following: *Sequential Compression Device (SCD) *Heparin 5000 units SQ BID 3-4 Higher Order ONE of the following medications: *Heparin 5000 units SQ TID *Enoxaparin/Lovenox 40 mg SQ daily (WT < 150 kg, CrCl > 30 mL/min) *Enoxaparin/Lovenox 30 mg SQ daily (WT < 150 kg, CrCl > 10-29 mL/min) *Enoxaparin/Lovenox 30 mg SQ BID (WT < 150 kg, CrCl > 30 mL/min) AND/OR *Sequential Compression Device (SCD) 5 or more Highest Order ONE of the following medications: *Heparin 5000 units SQ TID (Preferred with Epidurals) *Enoxaparin/Lovenox 40 mg SQ daily (WT < 150 kg, CrCl > 30 mL/min) *Enoxaparin/Lovenox 30 mg SQ daily (WT < 150 kg, CrCl > 10-29 mL/min) *Enoxaparin/Lovenox 30 mg SQ BID (WT < 150 kg, CrCl > 30 mL/min) AND *Sequential Compression Device (SCD) Assessment and Plan Assessment and Plan 1. Acute CVA: Appreciate neurology recommendations. MRI showed nonhemorrhagic infarction of the thalamus. Patient transferred from psychiatry to the neurology floor for monitoring on telemetry. Continue aspirin, Plavix. 2. Hypertension: Allow permissive hypertension. 3. Bipolar disorder with psychotic features: Management per psychiatry. 4. Hypothyroidism: Continue [place] Thyroid. 5. Hyperlipidemia: Currently on medications. 6. COPD: Not in acute exacerbation. Oxygen as needed. 7. DVT prophylaxis: FREDDIE Wiggins. Rik Flaherty MD May 13, 2018 11:58
[2018-05-13 12:00] VITALS: BP 110/53; PULSE 63; RESP 16; TEMP 98.5; O2SAT 97
[2018-05-13 14:27] LABS: AUTOMATED NEUTROPHIL # 4.1 TH/MM3 (1.8-7.7); BASOPHIL # 0.1 TH/MM3 (0-0.2); BASOPHIL % 1.2 % (0.0-2.0); EOSINOPHIL # 0.3 TH/MM3 (0-0.4); EOSINOPHIL % 3.7 % (0.0-4.0); HEMATOCRIT 37.1 % (35.0-46.0); HEMOGLOBIN 11.9 GM/DL (11.6-15.3); LYMPH % 23.6 % (9.0-44.0); LYMPHOCYTE # 1.6 TH/MM3 (1.0-4.8); MEAN CELL VOLUME 79.3 FL (80.0-100.0); MEAN CORPUSCULAR HEMOGLOBIN 25.4 PG (27.0-34.0); MEAN PLATELET VOLUME 8.8 FL (7.0-11.0); MONO % 11.5 % (0.0-8.0); MONOCYTE # 0.8 TH/MM3 (0-0.9); PLATELET COUNT 240 TH/MM3 (150-450); RED BLOOD COUNT 4.67 MIL/MM3 (4.00-5.30); RED CELL DISTRIBUTION WIDTH 19.8 % (11.6-17.2); WHITE BLOOD COUNT 6.8 TH/MM3 (4.0-11.0)
[2018-05-13 14:42] VITALS: PULSE 60
[2018-05-13] MEDS: SODIUM CHLOR 0.9% 1000 ML INJ 1,000 ML IV SCH (15:00)
[2018-05-13] MEDS ORDERED: ENALAPRILAT 1.25 MG/ML VIAL IV PUSH PRN (15:00)
[2018-05-13 15:11] VITALS: PULSE 72
[2018-05-13] MEDS ORDERED: GLUCAGON 1 MG/ML VIAL OTHER PRN (17:15)
[2018-05-13] MEDS ORDERED: DEXTROSE 50% IN WATER 50 ML VIAL(D50) IV PUSH PRN (17:15)
[2018-05-13] MEDS ORDERED: SODIUM CHLORIDE 0.9% FLUSH 10 ML FLUSH IV FLUSH PRN (17:15)
--- NOTE | 2018-05-13 17:26 | MB ---
cc: Bk Reis MD, PhD DATE: 05/13/2018 REASON FOR CONSULTATION: Stroke. HISTORY OF PRESENT ILLNESS: Ms. Gray is a 68-year-old woman known to me from evaluation yesterday while on the Psychiatry Service. The patient is a 68-year-old who was admitted with alteration in mental status with psychosis as well as episodes of otoniel. She was admitted under a Turner Act by law enforcement officers. Her family is at the bedside and relates that her mental status change occurred suddenly about 3 weeks ago. Prior to that, she was very functional with no memory loss, no cognitive deficits. As part of her evaluation, MRI of the brain was obtained, which revealed an acute nonhemorrhagic stroke in the left thalamic nucleus. She is therefore transferred to the medicine service for further evaluation. PAST MEDICAL HISTORY: Documented in previous notes. She has a history of coronary artery disease. CURRENT MEDICATIONS: 1. Aspirin 325 mg daily. 2. Plavix 75 mg daily. 3. Thyroid supplement. 4. Vasotec p.r.n. hypertension. NEUROLOGIC EXAM: VITAL SIGNS: Blood pressure 110/53, pulse 63, respiratory rate is 16, temperature 98 degrees. HIGHER CORTICAL FUNCTION: She is alert, disoriented. She has somewhat of an expressive aphasia, has difficulty naming things as well with anomia. She has poor disorientation and poor recent memory. CRANIAL NERVES: Intact. MOTOR EXAM: There are no focal deficit identified. LABORATORY DATA: The white count is 6800, hemoglobin 11.9, hematocrit 37%, platelet count is 240,000. IMAGING STUDIES: Carotid ultrasound is reviewed and shows evidence of borderline significant stenosis on the left with elevated velocities. IMPRESSION: Based on the family's history, the patient had a sudden onset of mental status change which is most likely related to the thalamic stroke on the left. There is a question of a left carotid stenosis. PLAN: Therefore, would recommend further evaluation with a CT angiogram of the carotid arteries. Also, monitor cardiac telemetry, rule out atrial fibrillation, check echocardiogram as well as lipid panel. Continue Plavix and aspirin. Bk Reis MD, PhD REYMUNDO/SB , 05:00 PM , 05:25 PM
[2018-05-13 17:27] VITALS: BP 112/66; PULSE 67; RESP 17; TEMP 98.7; O2SAT 98
[2018-05-13 18:56] LABS: BICARBONATE 19.2 MEQ/L (21.0-32.0); CALCIUM 9.1 MG/DL (8.5-10.1); CREATININE 0.88 MG/DL (0.50-1.00)
[2018-05-13 20:00] VITALS: PULSE 73; RESP 18; TEMP 97.9; O2SAT 97
[2018-05-13] MEDS ORDERED: IOHEXOL 350 MG/ML 10 ML VIAL (for RAD DIAG) IVCONTRAST ONE (21:50)
[2018-05-13 22:00] VITALS: PULSE 76
[2018-05-13] MEDS: INSULIN ASPART SUPPLEMENTAL SCALE SQ SCH (22:20)
[2018-05-13] MEDS: SODIUM CHLORIDE 0.9% FLUSH 10 ML FLUSH IV FLUSH SCH (22:22)
--- NOTE | 2018-05-13 23:01 | RADRPT ---
EXAM DATE: 05/13/2018 10:53 PM EDT AGE/SEX: 68 years / Female INDICATIONS: Occlusion. CLINICAL DATA: This is the patient's initial encounter. Patient reports that signs and symptoms have been present for 1 day and indicates a pain score of 3/10. MEDICAL/SURGICAL HISTORY: Cardiovascular disease. Hypertension. None. RADIATION DOSE: 10.22 CTDI (mGy) ; Combined studies COMPARISON: No prior exams available for comparison. TECHNIQUE: Volumetric scanning was performed using a multi-row detector CT scanner during bolus infu miryam of 75 ml Omnipaque 350 (iohexol) nonionic water-soluble contrast as a cumulative dose for multi ple exams. The data was post processed with a variety of visualization algorithms including full vo lume maximum intensity projection, multi-planar sliding thin slab reformation, curved planar reformat ion, and surface rendering techniques. Using automated exposure control and adjustment of the mA and /or kV according to patient size, radiation dose was kept as low as reasonably achievable to obtain o ptimal diagnostic quality images. DICOM format image data is available electronically for review and comparison. FINDINGS: There is excellent visualization of the major intracranial arteries out to the second-order branch ve ssels. There is no evidence for aneurysm, vessel truncation or stenosis, and no evidence for vascula r malformation. There is a patent posterior communicating artery on the left. The vertebral arteries are codominant. Left There is atherosclerotic disease involving the distal right vertebral artery wi th narrowing less than 50%. No atherosclerotic disease is identified in the anterior circulation. CONCLUSION: No evidence of vessel occlusion Atherosclerotic disease involving the distal right vertebral artery as above Electronically signed by: Hang Tucker MD 05/13/2018 11:00 PM EDT
[2018-05-14] VITALS (12 sets, daily range): BP systolic 108–136; BP diastolic 62–74; PULSE 60–84; RESP 16–18; TEMP 98.1–98.6; O2SAT 94–99
--- NOTE | 2018-05-14 01:47 | RADRPT ---
EXAM DATE: 05/14/2018 1:05 AM EDT AGE/SEX: 68 years / Female INDICATIONS: Patient with mental status changes and acute nonhemorrhagic infarction in the left thal amus seen on MRI. Patient had a carotid ultrasound examination demonstrated elevated velocities and r atios in the left internal carotid artery.. CLINICAL DATA: This is the patient's initial encounter. Patient reports that signs and symptoms have been present for 1 day and indicates a pain score of 5/10. MEDICAL/SURGICAL HISTORY: Cardiovascular disease. Hypertension. None. RADIATION DOSE: 10.22 CTDI (mGy) ; Combined studies COMPARISON: [facility] [place], [place] CAROTID ARTERIES, 05/13/2018. . TECHNIQUE: Volumetric scanning was performed using a multirow detector CT scanner during bolus infus ion of 75 ml Omnipaque 350 (iohexol) nonionic water-soluble contrast as a cumulative dose for multip le exams. The data was postprocessed with a variety of visualization algorithms including full-volu me maximum intensity projection, multiplanar sliding thin-slab reformation, curved-planar reformation , and surface-rendering techniques. Using automated exposure control and adjustment of the mA and/or kV according to patient size, radiation dose was kept as low as reasonably achievable to obtain opti mal diagnostic quality images. DICOM format image data is available electronically for review and co mparison. FINDINGS: Aortic Arch: There is a three-vessel origin of the great vessels from the aorta. No evidence of ost ial narrowing Right Carotid: The common carotid artery is intact. There is mild calcific noncalcific plaque caroti d bulb with less than 40% diameter stenosis. There is mild irregularity and minimal narrowing interna l carotid artery. The external carotid artery is intact. Left Carotid: The common carotid artery is intact. The carotid bulb has a normal configuration with out ulceration or narrowing. There is calcific and noncalcific plaque in the proximal internal caroti d artery with approximately 50% diameter stenosis. Vertebrals: The vertebral arteries have a symmetric diameter. No stenotic lesions are seen. Elevated flow velocities and ICA/CCA ratios have been found to correlate with increased degrees of ve ssel stenosis, calculated as percentage of diameter relative to a normal segment of distal ICA/CCA. CONCLUSION: 1. Approximately 50% diameter stenosis proximal left internal carotid artery. 2. Less than 40% diameter stenosis in the right carotid bulb and proximal internal carotid artery. Electronically signed by: Christophe Robertson MD 05/14/2018 1:45 AM EDT
[2018-05-14] MEDS: SODIUM CHLOR 0.9% 1000 ML INJ 1,000 ML IV SCH ×2 (05:18→11:57)
[2018-05-14] MEDS: THYROID 60 MG TAB PO SCH (05:37)
[2018-05-14 07:30] LABS: HEMATOCRIT 37.3 % (35.0-46.0); HEMOGLOBIN 12.1 GM/DL (11.6-15.3); MEAN CORPUSCULAR HGB CONC 32.5 % (32.0-36.0); MEAN PLATELET VOLUME 8.7 FL (7.0-11.0); PLATELET COUNT 231 TH/MM3 (150-450); RED BLOOD COUNT 4.66 MIL/MM3 (4.00-5.30); RED CELL DISTRIBUTION WIDTH 20.2 % (11.6-17.2); WHITE BLOOD COUNT 7.2 TH/MM3 (4.0-11.0)
[2018-05-14 07:49] LABS: BICARBONATE 21.5 MEQ/L (21.0-32.0); CALCIUM 8.7 MG/DL (8.5-10.1); CREATININE 0.86 MG/DL (0.50-1.00)
[2018-05-14 07:51] LABS: CHOLESTEROL/ HDL RATIO 5.01 RATIO; HDL CHOLESTEROL 36.1 MG/DL (40.0-60.0)
[2018-05-14] MEDS: INSULIN ASPART SUPPLEMENTAL SCALE SQ SCH ×4 (08:00→21:14)
[2018-05-14] MEDS: SODIUM CHLORIDE 0.9% FLUSH 10 ML FLUSH IV FLUSH SCH ×2 (09:00→21:15)
[2018-05-14] MEDS: CLOPIDOGREL 75 MG TAB PO SCH (09:06)
[2018-05-14] MEDS: ASPIRIN 325 MG TAB PO SCH (09:07)
[2018-05-14 11:46] LABS: HEMOGLOBIN A1C 5.9 % (4.3-6.0)
--- NOTE | 2018-05-14 11:55 | PD.CONS ---
[facility] Service Rehabilitation Medicine Consult Requested By Bk Reis MD Reason for Consult Comprehensive rehabilitation evaluation. Primary Care Physician No Primary Care Physician History of Present Illness Nikki Gray is a 68-year-old [id number] female initially admitted [facility] 04/30/18 to psychiatry with bipolar disorder with psychotic features. She was subsequently noted to have cognitive impairments and neurology. Brain MRI showed acute nonhemorrhagic infarct in the left thalamus. She was admitted to medical service 05/13/18 for further evaluation. Echocardiogram showed ejection fraction 55-60%. CTA showed atherosclerotic disease of the right distal vertebral artery. She is currently been started on aspirin and Plavix. Review of Systems ROS Limitations: Clinical Condition, Poor Historian Constitutional: COMPLAINS OF: Fatigue Eyes: DENIES: Diplopia Respiratory: DENIES: Shortness of breath Cardiovascular: DENIES: Chest pain Gastrointestinal: DENIES: Abdominal pain Neurologic: DENIES: Headache Past Family Social History Allergies: Coded Allergies: bee venom protein (honey bee) (Unverified Allergy, Intermediate, Chest Pain, 07/06/17) MAKES HER CHEST FEEL TIGHT codeine (Unverified Allergy, Intermediate, Nausea/Vomiting, 07/06/17) Past Medical History Hypertension Hyperlipidemia Hypothyroidism COPD Schizoaffective disorder Past Surgical History Breast biopsy Oophorectomy Current Medications Current Medications Medications (Trade) Dose Ordered Sig/Stephen Route Start Time Stop Time Status Last Admin Sodium Chloride 1,000 ml @ 70 mls/hr [id number] IV 05/13/18 15:00 05/13/18 15:00 (Vasotec Inj) 1.25 mg Q6H PRN IV PUSH 05/13/18 15:00 (Aspirin) 325 mg DAILY PO 05/14/18 09:00 05/14/18 09:07 ([place] Thyroid) 60 mg DAILY@0600 PO 05/14/18 06:00 05/14/18 05:37 (Plavix) 75 mg DAILY PO 05/14/18 09:00 05/14/18 09:06 (NS Flush) 2 ml BID IV FLUSH 05/13/18 21:00 05/13/18 22:22 (NS Flush) 2 ml UNSCH PRN IV FLUSH 05/13/18 17:15 (NovoLOG SUPPLEMENTAL SCALE) 1 ACHS SQ 05/13/18 21:00 05/13/18 22:20 (D50w (Vial) Inj) 50 ml UNSCH PRN IV PUSH 05/13/18 17:15 (Glucagon Inj) 1 mg UNSCH PRN OTHER 05/13/18 17:15 Family History Noncontributory to the HPI Social History No tobacco or alcohol history. Prior to admission patient lived in [place], [place]. Exam I&O / VS Vital Signs Date Time Temp Pulse Resp B/P (MAP) Pulse Ox O2 Delivery O2 Flow Rate FiO2 05/14/18 08:31 60 05/14/18 08:13 98.6 68 16 122/63 (82) 94 05/14/18 04:34 77 05/14/18 04:33 66 05/14/18 04:00 98.2 66 18 115/64 (81) 94 05/14/18 00:00 98.2 67 18 111/62 (78) 94 05/13/18 22:00 76 05/13/18 20:00 97.9 73 18 97 05/13/18 17:27 98.7 67 17 112/66 (81) 98 05/13/18 15:11 72 05/13/18 14:42 60 05/13/18 12:00 98.5 63 16 110/53 (72) 97 General: No acute distress, Other (Resting comfortably in bed B:) Respiratory: Lungs CTA ( Briefly opens eyes to voice), Non-labored respirations , BS equal Gastrointestinal: Positive Bowel Sounds, Non-Distended, Non-Tender Cardiovascular: Normal rate, Regular Rhythm Skin: No rash Musculoskeletal: No calf tenderness Psychiatric: Cooperative Orientation: oriented to Self, unable to asses Place, unable to asses Time, unable to asses Situation Neurologic: Pupils (PERRLA), EOM, Facial Symmetry (Focuses to voice symmetric) , Speech (Difficult to assess patient is producing single words appropriately but fluency appears to be decreased) Motor: Right Upper Extremity (Grossly intact), Left Upper Extremity (Grossly intact), Right Lower Extremity (Grossly intact), Left Lower Extremity (Grossly intact) Sensory Difficult to assess but appears to be grossly symmetric DTRs: Normal Babinski: Negative Clonus: Negative Assessment and Plan Diagnosis: (1) CVA (cerebral vascular accident) ICD Codes: I63.9 - Cerebral infarction, unspecified Status: Acute Qualifiers: CVA mechanism: thrombosis Precerebral and cerebral artery: middle cerebral artery Laterality of affected vessel: left Qualified Codes: I63.312 - Cerebral infarction due to thrombosis of left middle cerebral artery Assessment 1. Left thalamic stroke with aphasia 2. Impaired mobility and ADLs due to above 3. Hypertension 4. Hyperlipidemia 5. COPD 6. Hypothyroidism 7. Schizoaffective disorder 8. Recent hospitalization for bipolar with psychotic features 04/30/18 Plan 1. PT evaluation pending. Patient is currently on head of bed flat restriction 2. OT for ADL's and UE ROM. Currently independent with feeding and grooming and minimal assistance with upper body dressing 3. ST has completed cognitive evaluation and providing remediation. Speech and language are being addressed 4. Case management addressing discharge planning 5. Will follow while hospitalized and at discharge as appropriate Thank you for this consult. Casandra Arora MD May 14, 2018 11:55
--- NOTE | 2018-05-14 15:19 | HHI.PR ---
Subjective Remarks Follow up CVA. Patient has no complaints at this time. Denies chest pain, dyspnea, headache, vision changes. She denies numbness, tingling, or weakness of her extremities. Objective Vitals Vital Signs Date Time Temp Pulse Resp B/P (MAP) Pulse Ox O2 Delivery O2 Flow Rate FiO2 05/14/18 12:44 76 05/14/18 12:00 98.6 78 16 113/74 (87) 97 05/14/18 08:31 60 05/14/18 08:13 98.6 68 16 122/63 (82) 94 05/14/18 04:34 77 05/14/18 04:33 66 05/14/18 04:00 98.2 66 18 115/64 (81) 94 05/14/18 00:00 98.2 67 18 111/62 (78) 94 05/13/18 22:00 76 05/13/18 20:00 97.9 73 18 97 05/13/18 17:27 98.7 67 17 112/66 (81) 98 Result Diagram: 05/14/18 0702 05/14/18 0702 Imaging Last Impressions Neck CTA 05/13/18 0000 Signed Impressions: CONCLUSION: 1. Approximately 50% diameter stenosis proximal left internal carotid artery. 2. Less than 40% diameter stenosis in the right carotid bulb and proximal inte rnal carotid artery. Head CTA 05/13/18 0000 Signed Impressions: CONCLUSION: No evidence of vessel occlusion Atherosclerotic disease involving the distal right vertebral artery as above Objective Remarks General: No acute distress. Heart: Regular rate and rhythm. 3/6 murmur. Lungs: Clear to auscultation bilaterally. No wheezes, rales, or rhonchi. Breathing is nonlabored. Abdomen: Soft, nontender, nondistended. Extremities: No lower extremity edema. Psych: Alert and oriented. Neuro: Normal speech. No focal deficits noted. Procedures None Urinary Catheter: No Vascular Central Line Catheter: No A/P Problem List: (1) CVA (cerebral vascular accident) ICD Code: I63.9 - Cerebral infarction, unspecified (2) Hypothyroidism ICD Code: E03.9 - Hypothyroidism, unspecified (3) Hypertension ICD Code: I10 - Essential (primary) hypertension (4) COPD (chronic obstructive pulmonary disease) ICD Code: J44.9 - Chronic obstructive pulmonary disease, unspecified (5) Hyperlipidemia ICD Code: E78.5 - Hyperlipidemia, unspecified Assessment and Plan 1. Acute CVA: Appreciate neurology recommendations. MRI showed nonhemorrhagic infarction of the thalamus. Patient transferred from psychiatry to the neurology floor for monitoring on telemetry. Continue aspirin, Plavix. 2D echocardiogram pending. CTA of the neck shows 50% stenosis of the left internal carotid artery. Consult vascular surgery. 2. Hypertension: Allow permissive hypertension. 3. Bipolar disorder with psychotic features: Management per psychiatry. 4. Hypothyroidism: Continue [place] Thyroid. 5. Hyperlipidemia: LDL is elevated. Start statin. 6. COPD: Not in acute exacerbation. Oxygen as needed. 7. DVT prophylaxis: FREDDIE Wiggins. Rik Flaherty MD May 14, 2018 15:19
--- NOTE | 2018-05-14 19:13 | PD.PSY.CON ---
Provisional Diagnosis Admission Date May 13, 2018 at 09:44 [place]. 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 Patient prior to transfer to medical service and was on Zyprexa 10 mg p.o. twice daily and reduce to 5 mg at bedtime had been discontinued was transferred to the medical service. Patient was found lying hospital bed noted, cooperative. Patient states she is feeling "pretty good", does not have understanding of reason for transfer to the medical floor stating that she does not know. Patient denies any physical pain at this time denying any difficulty eating or drinking, reports sleeping well and that her mood has been "good" patient denies any depressive or manic symptoms at this time. Patient also noted to be alert and oriented only to person stated that the year is 1442 and that she believes she is in [place] and the president of [facility] is President Isabel. Patient denies any perceptional services or delusions, denying any irritability or racing thoughts. Patient this time appears to be confused and disoriented. Past Family Social History Coded Allergies: bee venom protein (honey bee) (Unverified Allergy, Intermediate, Chest Pain, 07/06/17) MAKES HER CHEST FEEL TIGHT codeine (Unverified Allergy, Intermediate, Nausea/Vomiting, 07/06/17) Reported Medications Hyoscyamine (Levsin) 0.125 Mg Tab, 0.125 MG PO DAILY Y for INCREASED SECRETIONS , TAB 0 Refills 04/30/18 Benzonatate (Tessalon Perles) 100 Mg Cap, 100 MG PO TID Y for COUGH, CAP 0 Refills 04/30/18 Alprazolam (Xanax) 2 Mg Tab, 1 MG PO HS for Anxiety, TAB 0 Refills 04/30/18 Alprazolam (Xanax) 2 Mg Tab, 0.5 MG PO BID for Anxiety, TAB 0 Refills 04/30/18 Hydrochlorothiazide (Hydrochlorothiazide) 12.5 Mg Cap, 12.5 MG PO DAILY Y for EDEMA, #30 CAP 0 Refills 04/30/18 Pantoprazole (Protonix) 40 Mg Tab, 40 MG PO DAILY for Reflux, #30 TAB 0 Refills 04/30/18 Prednisone (Prednisone) 10 Mg Tab, 30 MG PO DAILY for 10 Days, #30 TAB 0 Refills 04/30/18 Clopidogrel (Plavix) 75 Mg Tab, 75 MG PO DAILY for Blood Clot Prevention, #30 TAB 0 Refills 04/30/18 Amphetamine-Dextroamphetamine (Adderall) 20 Mg Tab, 20 MG PO BID for Hyperactivity Control, #60 TAB 0 Refills Avoid late evening doses. Space doses at least 4 to 6 hours if more than once/day dosing. 04/30/18 Temazepam (Restoril) 30 Mg Cap, 30 MG PO HS Y for INSOMNIA, #30 CAP 0 Refills 04/30/18 Cefuroxime (Ceftin) 250 Mg Tab, 250 MG PO BID for 5 Days, #10 TAB 04/30/18 Thyroid ([place] Thyroid) 60 Mg Tab, 60 MG PO DAILY for Thyroid Supplement, #30 TAB 0 Refills 04/30/18 Current Medications Medications (Trade) Dose Ordered Sig/Stephen Route Start Time Stop Time Status Last Admin Sodium Chloride 1,000 ml @ 70 mls/hr [id number] IV 05/13/18 15:00 05/14/18 11:57 (Vasotec Inj) 1.25 mg Q6H PRN IV PUSH 05/13/18 15:00 (Aspirin) 325 mg DAILY PO 05/14/18 09:00 05/14/18 09:07 ([place] Thyroid) 60 mg DAILY@0600 PO 05/14/18 06:00 05/14/18 05:37 (Plavix) 75 mg DAILY PO 05/14/18 09:00 05/14/18 09:06 (NS Flush) 2 ml BID IV FLUSH 05/13/18 21:00 05/13/18 22:22 (NS Flush) 2 ml UNSCH PRN IV FLUSH 05/13/18 17:15 (NovoLOG SUPPLEMENTAL SCALE) 1 ACHS SQ 05/13/18 21:00 05/14/18 12:00 (D50w (Vial) Inj) 50 ml UNSCH PRN IV PUSH 05/13/18 17:15 (Glucagon Inj) 1 mg UNSCH PRN OTHER 05/13/18 17:15 (Lipitor) 20 mg HS PO 05/14/18 21:00 Physical Exam Vital Signs Vital Signs Date Time Temp Pulse Resp B/P (MAP) Pulse Ox O2 Delivery O2 Flow Rate FiO2 05/14/18 18:16 76 05/14/18 16:00 98.1 16 108/70 (83) 96 Lab Results Test 05/14/18 07:02 White Blood Count 7.2 TH/MM3 Red Blood Count 4.66 MIL/MM3 Hemoglobin 12.1 GM/DL Hematocrit 37.3 % Mean Corpuscular Volume 80.0 FL Mean Corpuscular Hemoglobin 26.0 PG Mean Corpuscular Hemoglobin Concent 32.5 % Red Cell Distribution Width 20.2 % Platelet Count 231 TH/MM3 Mean Platelet Volume 8.7 FL Blood Urea Nitrogen 17 MG/DL Creatinine 0.86 MG/DL Random Glucose 85 MG/DL Calcium Level 8.7 MG/DL Sodium Level 142 MEQ/L Potassium Level 4.3 MEQ/L Chloride Level 113 MEQ/L Carbon Dioxide Level 21.5 MEQ/L Anion Gap 8 MEQ/L Estimat Glomerular Filtration Rate 65 ML/MIN Triglycerides Level 127 MG/DL Cholesterol Level 181 MG/DL LDL Cholesterol 120 MG/DL HDL Cholesterol 36.1 MG/DL Cholesterol/HDL Ratio 5.01 RATIO Mental Status Examination Appearance: Appropriate Consciousness: Alert Orientation: Person Speech: Unremarkable Language: Adequate Fund of Knowledge: Inadequate Attention and Concentration: Adequate Memory: Impaired Mood: Appropriate Affect: Appropriate Thought Process & Associations: Other (Collins) Thought Content: Appropriate Hallucination Type: None Delusion Type: None Suicidal Ideation: No Suicidal Plan: No Suicidal Intention: No Homicidal Ideation: No Homicidal Plan: No Homicidal Intention: No Insight: Poor Judgment: Poor Assessment & Plan Problem List: (1) Delirium ICD Codes: R41.0 - Disorientation, unspecified (2) CVA (cerebral vascular accident) ICD Codes: I63.9 - Cerebral infarction, unspecified (3) Schizoaffective disorder ICD Codes: F25.9 - Schizoaffective disorder, unspecified Assessment & Plan Patient is a 68-year-old woman with previous psychiatric diagnosis of schizoaffective disorder was previously admitted to the inpatient psychiatry unit for noted manic symptoms with psychotic features initially but during course of hospitalization was transferred to the medical service for nonhemorrhagic stroke in left thalamic nucleus, which psychiatry was consulted for evaluation of bipolar disorder. Patient this time noted to be disoriented and confused unable to recall reasons for hospitalizations note for her medical transfer. Patient has not been noted to be lethargic or somnolent as noted prior to her transfer but also has not been noted to have any manic symptoms that she was endorsed during initial evaluation and admission to psychiatric service. Recommend deferring from restarting olanzapine for now due to current disorientation and confusion and no current acute manic symptoms to require stabilization at this time noted. Continue to monitor mood and behavior. Patient to continue recommendations as per primary medical team. Psychiatry will continue to follow. Consult appreciated. Moe Fox MD May 14, 2018 19:13
--- NOTE | 2018-05-14 19:59 | HHI.PR ---
Review/Management Diagnosis Thalamic CVA Diagnosis/Plan: Subjective Subjective Comments No acute events reported Active Medications Current Medications Medications (Trade) Dose Ordered Sig/Stephen Route Start Time Stop Time Status Last Admin Sodium Chloride 1,000 ml @ 70 mls/hr [id number] IV 05/13/18 15:00 05/14/18 11:57 (Vasotec Inj) 1.25 mg Q6H PRN IV PUSH 05/13/18 15:00 (Aspirin) 325 mg DAILY PO 05/14/18 09:00 05/14/18 09:07 ([place] Thyroid) 60 mg DAILY@0600 PO 05/14/18 06:00 05/14/18 05:37 (Plavix) 75 mg DAILY PO 05/14/18 09:00 05/14/18 09:06 (NS Flush) 2 ml BID IV FLUSH 05/13/18 21:00 05/13/18 22:22 (NS Flush) 2 ml UNSCH PRN IV FLUSH 05/13/18 17:15 (NovoLOG SUPPLEMENTAL SCALE) 1 ACHS SQ 05/13/18 21:00 05/14/18 12:00 (D50w (Vial) Inj) 50 ml UNSCH PRN IV PUSH 05/13/18 17:15 (Glucagon Inj) 1 mg UNSCH PRN OTHER 05/13/18 17:15 (Lipitor) 20 mg HS PO 05/14/18 21:00 Allergies Allergies Coded Allergies bee venom protein (honey bee) (Unverified Allergy, Intermediate, Chest Pain, ) codeine (Unverified Allergy, Intermediate, Nausea/Vomiting, 07/06/17) Exam I&O / VS Vital Signs Date Time Temp Pulse Resp B/P (MAP) Pulse Ox O2 Delivery O2 Flow Rate FiO2 05/14/18 19:54 98.6 76 17 136/63 (87) 99 05/14/18 18:16 76 05/14/18 16:00 98.1 72 16 108/70 (83) 96 05/14/18 12:44 76 05/14/18 12:00 98.6 78 16 113/74 (87) 97 05/14/18 08:31 60 05/14/18 08:13 98.6 68 16 122/63 (82) 94 05/14/18 04:34 77 05/14/18 04:33 66 6/23/18 04:00 98.2 66 18 115/64 (81) 94 05/14/18 00:00 98.2 67 18 111/62 (78) 94 05/13/18 22:00 76 05/13/18 20:00 97.9 73 18 97 Exam Comments alert, speech more fluent still with anomia CN intact MOTOR 5/5 BUE Objective Radiology Results CTA neck--no significant carotid stenosis CTA brain --no significant arterial stenosis Micro and Labs Laboratory Tests Test 05/14/18 07:02 White Blood Count 7.2 Red Blood Count 4.66 Hemoglobin 12.1 Hematocrit 37.3 Mean Corpuscular Volume 80.0 Mean Corpuscular Hemoglobin 26.0 Mean Corpuscular Hemoglobin Concent 32.5 Red Cell Distribution Width 20.2 Platelet Count 231 Mean Platelet Volume 8.7 Blood Urea Nitrogen 17 Creatinine 0.86 Random Glucose 85 Calcium Level 8.7 Sodium Level 142 Potassium Level 4.3 Chloride Level 113 Carbon Dioxide Level 21.5 Anion Gap 8 Estimat Glomerular Filtration Rate 65 Triglycerides Level 127 Cholesterol Level 181 LDL Cholesterol 120 HDL Cholesterol 36.1 Cholesterol/HDL Ratio 5.01 Bk Reis MD PhD May 14, 2018 19:59
[2018-05-14] MEDS: ATORVASTATIN 20 MG TAB PO SCH (21:14)
[2018-05-15] VITALS (12 sets, daily range): BP systolic 110–151; BP diastolic 51–72; PULSE 59–86; RESP 12–18; TEMP 97.7–98.8; O2SAT 94–99
[2018-05-15] MEDS: SODIUM CHLOR 0.9% 1000 ML INJ 1,000 ML IV SCH (02:26)
[2018-05-15] MEDS: THYROID 60 MG TAB PO SCH (06:13)
[2018-05-15] MEDS: INSULIN ASPART SUPPLEMENTAL SCALE SQ SCH ×4 (07:36→22:07)
[2018-05-15] MEDS: ASPIRIN 325 MG TAB PO SCH (07:37)
[2018-05-15] MEDS: SODIUM CHLORIDE 0.9% FLUSH 10 ML FLUSH IV FLUSH SCH ×2 (07:37→22:06)
[2018-05-15] MEDS: CLOPIDOGREL 75 MG TAB PO SCH (07:37)
--- NOTE | 2018-05-15 07:57 | PD.VS.CON ---
History of Present Illness Chief Complaint: stroke Consult Requested by: medical service History of Present Illness 68 yo female with baseline schizoaffective disorder who was brought in with AMS and found to have acute non-hemorrhagic LEFT thalamic CVA. No focal neuro deficits. Pt unaware why she is here and overall poor historian so history obtained from EMR. Past/Family/Social History Past Medical History HTN XOL schizoaffective disorder COPD hypothyroidism Past Surgical History oophorectomy breast bx Social History unknown Family History NC Home Medications Reported Medications Hyoscyamine (Levsin) 0.125 Mg Tab, 0.125 MG PO DAILY Y for INCREASED SECRETIONS , TAB 0 Refills 04/30/18 Benzonatate (Tessalon Perles) 100 Mg Cap, 100 MG PO TID Y for COUGH, CAP 0 Refills 04/30/18 Alprazolam (Xanax) 2 Mg Tab, 1 MG PO HS for Anxiety, TAB 0 Refills 04/30/18 Alprazolam (Xanax) 2 Mg Tab, 0.5 MG PO BID for Anxiety, TAB 0 Refills 04/30/18 Hydrochlorothiazide (Hydrochlorothiazide) 12.5 Mg Cap, 12.5 MG PO DAILY Y for EDEMA, #30 CAP 0 Refills 04/30/18 Pantoprazole (Protonix) 40 Mg Tab, 40 MG PO DAILY for Reflux, #30 TAB 0 Refills 04/30/18 Prednisone (Prednisone) 10 Mg Tab, 30 MG PO DAILY for 10 Days, #30 TAB 0 Refills 04/30/18 Clopidogrel (Plavix) 75 Mg Tab, 75 MG PO DAILY for Blood Clot Prevention, #30 TAB 0 Refills 04/30/18 Amphetamine-Dextroamphetamine (Adderall) 20 Mg Tab, 20 MG PO BID for Hyperactivity Control, #60 TAB 0 Refills Avoid late evening doses. Space doses at least 4 to 6 hours if more than once/day dosing. 04/30/18 Temazepam (Restoril) 30 Mg Cap, 30 MG PO HS Y for INSOMNIA, #30 CAP 0 Refills 04/30/18 Cefuroxime (Ceftin) 250 Mg Tab, 250 MG PO BID for 5 Days, #10 TAB 04/30/18 Thyroid ([place] Thyroid) 60 Mg Tab, 60 MG PO DAILY for Thyroid Supplement, #30 TAB 0 Refills 04/30/18 Coded Allergies: bee venom protein (honey bee) (Unverified Allergy, Intermediate, Chest Pain, 07/06/17) MAKES HER CHEST FEEL TIGHT codeine (Unverified Allergy, Intermediate, Nausea/Vomiting, 07/06/17) Review of Systems ROS Limitations: Altered Mental Status Physical Exam Vitals/I&O Date Time Temp Pulse Resp B/P (MAP) Pulse Ox O2 Delivery O2 Flow Rate FiO2 05/15/18 07:19 98.8 66 12 110/54 (72) 94 05/15/18 04:59 97.7 66 18 130/61 (84) 95 05/15/18 04:29 59 05/15/18 01:44 64 05/15/18 00:46 98.3 61 18 151/72 (98) 96 05/14/18 22:00 84 05/14/18 19:54 98.6 76 17 136/63 (87) 99 05/14/18 18:16 76 05/14/18 16:00 98.1 72 16 108/70 (83) 96 05/14/18 12:44 76 05/14/18 12:00 98.6 78 16 113/74 (87) 97 05/14/18 08:31 60 05/14/18 08:13 98.6 68 16 122/63 (82) 94 Neuro: resting in chair, no distress HEENT: NC/AT; anicteric sclera Neck: no JVD Heart: reg rate, no M Lungs: clear Vascular: palpable UE pulses Extremities: BORJA, 5/5 strength Assessment and Plan Plan LEFT thalamic CVA. By report CTA of neck shows <50% ICA stenosis bilaterally. Have asked images to be pushed over so I can review. If report accurate, no need for carotid intervention and really no additional imaging needed. Needs ASA and statin. Kenny Nice MD FACS [employer] dressage instructor [facility] - Heart and Vascular Surgery at [facility] [phone] Kenny Nice MD May 15, 2018 07:57
--- NOTE | 2018-05-15 08:03 | MG ---
cc: Bk Reis MD, PhD TEST NUMBER: [id number] TECHNIQUE: A 17-channel EEG. DESCRIPTION: The background rhythm reveals a symmetrical alpha rhythm, frequency, 8-10 Hz, amplitude 20-30 microvolts. During drowsiness, there is slowing in the theta range. No lateralizing features identified. No epileptiform features were seen. Occasional muscle artifact identified. Hyperventilation does not alter the background rhythm. Photic results in a normal driving response. INTERPRETATION: Normal electroencephalogram. Bk Reis MD, PhD REYMUNDO/TL , 09:20 PM , 08:01 AM
--- NOTE | 2018-05-15 08:32 | ECHRPT ---
Indication: cva, endocarditis CONCLUSIONS The left ventricular systolic function is normal with an estimated ejection fraction in the range of 55-60%. Mild to moderate mitral valve regurgitation. There is trace tricuspid valve regurgitation. Trivial pulmonary valve regurgitation. BP: / HR: 75 Rhythm: Sinus Technical Quality:Fair FINDINGS LEFT VENTRICLE The left ventricular systolic function is normal with an estimated ejection fraction in the range of 55-60%. MITRAL VALVE Mild to moderate mitral valve regurgitation. AORTIC VALVE Trileaflet aortic valve. TRICUSPID VALVE Structurally normal tricuspid valve. There is trace tricuspid valve regurgitation. PULMONARY VALVE Trivial pulmonary valve regurgitation. Fletcher Brunson MD (Electronically Signed) Final Date:15 May 2018 08:31
--- NOTE | 2018-05-15 15:29 | HHI.PR ---
Subjective Remarks Follow up CVA. Patient has no complaints at this time. Denies chest pain, dyspnea, headache, vision changes, numbness, tingling, weakness. Objective Vitals Vital Signs Date Time Temp Pulse Resp B/P (MAP) Pulse Ox O2 Delivery O2 Flow Rate FiO2 05/15/18 13:02 76 05/15/18 12:48 98.0 68 18 119/53 (75) 98 05/15/18 09:00 60 05/15/18 07:19 98.8 66 12 110/54 (72) 94 05/15/18 04:59 97.7 66 18 130/61 (84) 95 05/15/18 04:29 59 05/15/18 01:44 64 05/15/18 00:46 98.3 61 18 151/72 (98) 96 05/14/18 22:00 84 05/14/18 19:54 98.6 76 17 136/63 (87) 99 05/14/18 18:16 76 05/14/18 16:00 98.1 72 16 108/70 (83) 96 I/O 05/14/18 05/14/18 05/14/18 05/15/18 05/15/18 05/15/18 07:00 15:00 23:00 07:00 15:00 23:00 Intake Total 720 ml Balance 720 ml Intake Oral 720 ml # Voids 2 2 # Bowel Movements 1 2 Result Diagram: 05/14/18 0702 05/14/18 0702 Imaging Last Impressions Neck CTA 05/13/18 0000 Signed Impressions: CONCLUSION: 1. Approximately 50% diameter stenosis proximal left internal carotid artery. 2. Less than 40% diameter stenosis in the right carotid bulb and proximal inte rnal carotid artery. Head CTA 05/13/18 0000 Signed Impressions: CONCLUSION: No evidence of vessel occlusion Atherosclerotic disease involving the distal right vertebral artery as above Objective Remarks General: No acute distress. Heart: Regular rate and rhythm. 3/6 murmur. Lungs: Clear to auscultation bilaterally. No wheezes, rales, or rhonchi. Breathing is nonlabored. Abdomen: Soft, nontender, nondistended. Extremities: No lower extremity edema. Psych: Alert and oriented. Neuro: Normal speech. No focal deficits noted. Clinical Allergist strength 5/5 in both upper extremities. Procedures None Urinary Catheter: No Vascular Central Line Catheter: No A/P Problem List: (1) CVA (cerebral vascular accident) ICD Code: I63.9 - Cerebral infarction, unspecified Status: Acute (2) Hypothyroidism ICD Code: E03.9 - Hypothyroidism, unspecified (3) Hypertension ICD Code: I10 - Essential (primary) hypertension (4) COPD (chronic obstructive pulmonary disease) ICD Code: J44.9 - Chronic obstructive pulmonary disease, unspecified (5) Hyperlipidemia ICD Code: E78.5 - Hyperlipidemia, unspecified Assessment and Plan 1. Acute CVA: Appreciate neurology recommendations. MRI showed nonhemorrhagic infarction of the thalamus. Patient transferred from psychiatry to the neurology floor for monitoring on telemetry. Continue aspirin, Plavix. 2D echocardiogram shows ejection fraction of 55-60%, mild to moderate mitral valve regurgitation, trace tricuspid regurgitation, trivial pulmonary valve regurgitation. CTA of the neck shows 50% stenosis of the left internal carotid artery. No further workup necessary per vascular surgery. 2. Hypertension: Blood pressure is controlled. 3. Bipolar disorder with psychotic features: Management per psychiatry. 4. Hypothyroidism: Continue [place] Thyroid. 5. Hyperlipidemia: LDL is elevated. Continue statin. 6. COPD: Not in acute exacerbation. Oxygen as needed. 7. DVT prophylaxis: SCDs, FREDDIE mohr. Discharge Planning Pending neurology, psychiatry clearance. Patient may need transfer back to inpatient psychiatry. Problem Qualifiers (1) CVA (cerebral vascular accident): Qualified Codes: I63.312 - Cerebral infarction due to thrombosis of left middle cerebral artery Rik Flaherty MD May 15, 2018 15:29
--- NOTE | 2018-05-15 17:20 | HHI.PR ---
Review/Management Diagnosis Thalamic CVA Plan continue asa and statin Diagnosis/Plan: Subjective Subjective Comments No acute events reported Pt feels her speech is improving Active Medications Current Medications Medications (Trade) Dose Ordered Sig/Stephen Route Start Time Stop Time Status Last Admin Sodium Chloride 1,000 ml @ 70 mls/hr [id number] IV 05/13/18 15:00 05/15/18 02:26 (Vasotec Inj) 1.25 mg Q6H PRN IV PUSH 05/13/18 15:00 (Aspirin) 325 mg DAILY PO 05/14/18 09:00 05/15/18 07:37 ([place] Thyroid) 60 mg DAILY@0600 PO 05/14/18 06:00 05/15/18 06:13 (Plavix) 75 mg DAILY PO 05/14/18 09:00 05/15/18 07:37 (NS Flush) 2 ml BID IV FLUSH 05/13/18 21:00 05/15/18 07:37 (NS Flush) 2 ml UNSCH PRN IV FLUSH 05/13/18 17:15 (NovoLOG SUPPLEMENTAL SCALE) 1 ACHS SQ 05/13/18 21:00 05/15/18 11:53 (D50w (Vial) Inj) 50 ml UNSCH PRN IV PUSH 05/13/18 17:15 (Glucagon Inj) 1 mg UNSCH PRN OTHER 05/13/18 17:15 (Lipitor) 20 mg HS PO 05/14/18 21:00 05/14/18 21:14 Allergies Allergies Coded Allergies bee venom protein (honey bee) (Unverified Allergy, Intermediate, Chest Pain, ) codeine (Unverified Allergy, Intermediate, Nausea/Vomiting, 07/06/17) Exam I&O / VS 05/15/18 05/15/18 05/16/18 15:00 23:00 07:00 Intake Total 720 ml Balance 720 ml Intake Oral 720 ml # Voids 2 1 # Bowel Movements 2 1 Vital Signs Date Time Temp Pulse Resp B/P (MAP) Pulse Ox O2 Delivery O2 Flow Rate FiO2 05/15/18 16:43 65 05/15/18 13:02 76 05/15/18 12:48 98.0 68 18 119/53 (75) 98 05/15/18 09:00 60 6/24/18 07:19 98.8 66 12 110/54 (72) 94 05/15/18 04:59 97.7 66 18 130/61 (84) 95 05/15/18 04:29 59 05/15/18 01:44 64 05/15/18 00:46 98.3 61 18 151/72 (98) 96 05/14/18 22:00 84 05/14/18 19:54 98.6 76 17 136/63 (87) 99 05/14/18 18:16 76 Respiratory: Lungs CTA ( Briefly opens eyes to voice), Non-labored respirations , BS equal Cardiology: Normal rate, Regular Rhythm Musculoskeletal: No calf tenderness Exam Comments alert, speech more fluent . Anomia improving CN intact MOTOR 5/5 Bk Engel MD PhD May 15, 2018 17:20
[2018-05-15] MEDS: ATORVASTATIN 20 MG TAB PO SCH (22:06)
[2018-05-16] VITALS (10 sets, daily range): BP systolic 105–133; BP diastolic 52–73; PULSE 63–86; RESP 12–20; TEMP 97.8–98.8; O2SAT 97–99
[2018-05-16] MEDS: SODIUM CHLOR 0.9% 1000 ML INJ 1,000 ML IV SCH ×2 (00:12→11:23)
[2018-05-16] MEDS: THYROID 60 MG TAB PO SCH (06:22)
[2018-05-16] MEDS: INSULIN ASPART SUPPLEMENTAL SCALE SQ SCH ×4 (08:00→21:00)
[2018-05-16] MEDS: ASPIRIN 325 MG TAB PO SCH (08:04)
[2018-05-16] MEDS: SODIUM CHLORIDE 0.9% FLUSH 10 ML FLUSH IV FLUSH SCH ×2 (08:04→21:00)
[2018-05-16] MEDS: CLOPIDOGREL 75 MG TAB PO SCH (08:04)
--- NOTE | 2018-05-16 10:26 | HHI.PR ---
Subjective Remarks Patient states that she is doing well. No other concerns. No concerns of suicidal ideations. Denies any weakness or numbness at this time. Objective Vitals Vital Signs Date Time Temp Pulse Resp B/P (MAP) Pulse Ox O2 Delivery O2 Flow Rate FiO2 05/16/18 07:30 97.9 68 12 131/73 (92) 99 05/16/18 04:44 97.8 68 18 129/63 (85) 97 05/16/18 03:53 70 05/16/18 00:36 98.4 18 105/60 (75) 97 05/15/18 23:00 86 05/15/18 21:06 98.1 86 18 149/63 (91) 98 05/15/18 16:43 65 05/15/18 16:00 97.9 68 18 119/51 (73) 99 05/15/18 13:02 76 05/15/18 12:48 98.0 68 18 119/53 (75) 98 I/O 05/15/18 05/15/18 05/15/18 05/16/18 05/16/18 05/16/18 07:00 15:00 23:00 07:00 15:00 23:00 Intake Total 720 ml 360 ml Balance 720 ml 360 ml Intake Oral 720 ml 360 ml # Voids 2 2 # Bowel Movements 2 1 Result Diagram: 05/14/18 0702 05/14/18 0702 Objective Remarks GENERAL: This is a well-nourished, well-developed patient, in no apparent distress. CARDIOVASCULAR: Regular rate and rhythm RESPIRATORY: Clear to auscultation. Breath sounds equal bilaterally. No wheezes , rales, or rhonchi. MUSCULOSKELETAL: Extremities without clubbing, cyanosis, or edema. NEURO: Alert & Oriented x4 to person, place, time, situation. Moves all ext x4 Procedures None A/P Problem List: (1) CVA (cerebral vascular accident) ICD Code: I63.9 - Cerebral infarction, unspecified Status: Acute (2) Hypothyroidism ICD Code: E03.9 - Hypothyroidism, unspecified Status: Chronic (3) Hypertension ICD Code: I10 - Essential (primary) hypertension Status: Chronic (4) COPD (chronic obstructive pulmonary disease) ICD Code: J44.9 - Chronic obstructive pulmonary disease, unspecified Status: Chronic (5) Hyperlipidemia ICD Code: E78.5 - Hyperlipidemia, unspecified Status: Chronic Assessment and Plan 1. Acute CVA: Appreciate neurology recommendations. MRI showed nonhemorrhagic infarction of the thalamus. Patient transferred from psychiatry to the neurology floor for monitoring on telemetry. Continue aspirin, Plavix. 2D echocardiogram shows ejection fraction of 55-60%, mild to moderate mitral valve regurgitation, trace tricuspid regurgitation, trivial pulmonary valve regurgitation. CTA of the neck shows 50% stenosis of the left internal carotid artery. No further workup necessary per vascular surgery. Patient is medically cleared to return back to psychiatric unit. Continue OT and PT 2. Hypertension, chronic essential: Blood pressure is controlled currently on no antihypertensives. 3. Bipolar disorder with psychotic features: Management per psychiatry. Zyprexa currently on hold at this time per psychiatry recommendations. 4. Hypothyroidism: Continue [place] Thyroid. 5. Hyperlipidemia: LDL is elevated at 120. Continue statin. 6. COPD: Not in acute exacerbation. Oxygen as needed. 7. DVT prophylaxis: SCDs, FREDDIE mohr. Discharge Planning Discharge back to inpatient psychiatry unit Problem Qualifiers (1) CVA (cerebral vascular accident): Qualified Codes: I63.312 - Cerebral infarction due to thrombosis of left middle cerebral artery (2) Hypertension: Qualified Codes: I10 - Essential (primary) hypertension (3) Hyperlipidemia: Qualified Codes: E78.5 - Hyperlipidemia, unspecified Smiley Murguia MD May 16, 2018 10:26
[2018-05-16] MEDS ORDERED: ASA325 PO (10:29)
[2018-05-16] MEDS ORDERED: ATOR20TA15 PO (10:29)
--- NOTE | 2018-05-16 10:33 | HHI.DS ---
Discharge Summary Admission Date May 13, 2018 at 09:44 Discharge Date: May 17, 2018 Admitting Diagnosis CVA (1) CVA (cerebral vascular accident) ICD Code: I63.9 - Cerebral infarction, unspecified Status: Acute (2) Hypothyroidism ICD Code: E03.9 - Hypothyroidism, unspecified Status: Chronic (3) Hypertension ICD Code: I10 - Essential (primary) hypertension Status: Chronic (4) COPD (chronic obstructive pulmonary disease) ICD Code: J44.9 - Chronic obstructive pulmonary disease, unspecified Status: Chronic (5) Hyperlipidemia ICD Code: E78.5 - Hyperlipidemia, unspecified Status: Chronic Procedures None Brief History - From Admission The patient is a 68-year-old female who was admitted to inpatient psychiatry for management of bipolar disorder with psychotic features. She was noted to have cognitive deficits and difficulty with speech. Neurology was consulted. MRI of the brain was ordered, and it showed acute nonhemorrhagic infarction involving the left thalamus. At the time of my examination, the patient has no complaints. Her speech is clear. She denies chest pain, dyspnea, headache, vision changes. She denies numbness/tingling/weakness of her extremities. CBC/BMP: 05/14/18 0702 05/14/18 0702 Significant Findings Laboratory Tests Test 05/13/18 13:53 05/13/18 18:15 05/14/18 07:02 Mean Corpuscular Volume 79.3 FL (80.0-100.0) Mean Corpuscular Hemoglobin 25.4 PG (27.0-34.0) 26.0 PG (27.0-34.0) Red Cell Distribution Width 19.8 % (11.6-17.2) 20.2 % (11.6-17.2) Monocytes (%) (Auto) 11.5 % (0.0-8.0) Blood Urea Nitrogen 22 MG/DL (7-18) Chloride Level 110 MEQ/L (98-107) 113 MEQ/L (98-107) Carbon Dioxide Level 19.2 MEQ/L (21.0-32.0) Estimat Glomerular Filtration Rate 64 ML/MIN (>89) 65 ML/MIN (>89) LDL Cholesterol 120 MG/DL (0-99) HDL Cholesterol 36.1 MG/DL (40.0-60.0) Imaging Last Impressions Neck CTA 05/13/18 Signed Impressions: CONCLUSION: 1. Approximately 50% diameter stenosis proximal left internal carotid artery. 2. Less than 40% diameter stenosis in the right carotid bulb and proximal inte rnal carotid artery. Head CTA 05/13/18 Signed Impressions: CONCLUSION: No evidence of vessel occlusion Atherosclerotic disease involving the distal right vertebral artery as above PE at Discharge GENERAL: This is a well-nourished, well-developed patient, in no apparent distress. CARDIOVASCULAR: Regular rate and rhythm RESPIRATORY: Clear to auscultation. Breath sounds equal bilaterally. No wheezes , rales, or rhonchi. MUSCULOSKELETAL: Extremities without clubbing, cyanosis, or edema. NEURO: Alert & Oriented x4 to person, place, time, situation. Moves all ext x4 Pt update on day of discharge Patient doing well with no complaints overnight. Hospital Course These are the medical issues addressed during this hospitalization: 1. Acute thalamus CVA: Appreciate neurology, Dr. Reis's recommendations. MRI showed nonhemorrhagic infarction of the thalamus. Patient transferred from psychiatry to the neurology floor for monitoring on telemetry. Continue aspirin , Plavix. 2D echocardiogram shows ejection fraction of 55-60%, mild to moderate mitral valve regurgitation, trace tricuspid regurgitation, trivial pulmonary valve regurgitation. CTA of the neck shows 50% stenosis of the left internal carotid artery. No further workup necessary per vascular surgery. Patient is medically cleared to return back to psychiatric unit. Continue OT and PT. Speech therapy was consulted for cognitive evaluation and therapy. 2. Hypertension, chronic essential: Blood pressure is controlled currently on no antihypertensives. 3. Bipolar disorder : Management per psychiatry. Zyprexa currently on hold at this time per psychiatry recommendations. It is unknown if patient's symptoms was related to her acute CVA. At this time, has discussed her case with Dr. Fox who does not feel patient needs to return back to the psychiatric unit. 4. Hypothyroidism: Continue [place] Thyroid. 5. Hyperlipidemia: LDL is elevated at 120. Continue statin. Prescription of Lipitor given upon discharge 6. COPD: Not in acute exacerbation. Oxygen as needed. 7. DVT prophylaxis: SCDFREDDIE zhou. At this time, patient has gained maximum benefit from hospitalization and ready to be discharged to home with home health physical therapy, occupational therapy , and cognitive therapy Pt Condition on Discharge: Good Discharge Disposition: Disch w/ Home Health Serv Discharge Time: <= 30 minutes Discharge Instructions DIET: Follow Instructions for: Heart Healthy Diet Activities you can perform: Regular-No Restrictions Follow up Referrals: PCP Follow-up - 2 Weeks New Medications: Aspirin (Px Aspirin) 325 Mg Tab 325 MG PO DAILY for Prevent Blood Clot, #30 TAB Atorvastatin (Atorvastatin) 20 Mg Tab 20 MG PO HS for Cholesterol Management, #30 TAB Continued Medications: Benzonatate (Tessalon Perles) 100 Mg Cap 100 MG PO TID PRN for COUGH, CAP 0 Refills Clopidogrel (Plavix) 75 Mg Tab 75 MG PO DAILY for Blood Clot Prevention, #30 TAB 0 Refills Hydrochlorothiazide (Hydrochlorothiazide) 12.5 Mg Cap 12.5 MG PO DAILY PRN for EDEMA, #30 CAP 0 Refills Hyoscyamine (Levsin) 0.125 Mg Tab 0.125 MG PO DAILY PRN for INCREASED SECRETIONS, TAB 0 Refills Pantoprazole (Protonix) 40 Mg Tab 40 MG PO DAILY for Reflux, #30 TAB 0 Refills Thyroid ([place] Thyroid) 60 Mg Tab 60 MG PO DAILY for Thyroid Supplement, #30 TAB 0 Refills Discontinued Medications: Alprazolam (Xanax) 2 Mg Tab 0.5 MG PO BID for Anxiety, TAB 0 Refills Alprazolam (Xanax) 2 Mg Tab 1 MG PO HS for Anxiety, TAB 0 Refills Amphetamine-Dextroamphetamine (Adderall) 20 Mg Tab 20 MG PO BID for Hyperactivity Control, #60 TAB 0 Refills Avoid late evening doses. Space doses at least 4 to 6 hours if more than once/day dosing. Cefuroxime (Ceftin) 250 Mg Tab 250 MG PO BID for 5 Days, #10 TAB Prednisone (Prednisone) 10 Mg Tab 30 MG PO DAILY for 10 Days, #30 TAB 0 Refills Temazepam (Restoril) 30 Mg Cap 30 MG PO HS PRN for INSOMNIA, #30 CAP 0 Refills Smiley Murguia MD May 16, 2018 10:33
--- NOTE | 2018-05-16 14:58 | HHI.PR ---
Subjective Remarks Patient states that she is doing okay. Did walk to the bathroom. She has no complaint of suicidal or homicidal ideations. Objective Vitals Vital Signs Date Time Temp Pulse Resp B/P (MAP) Pulse Ox O2 Delivery O2 Flow Rate FiO2 05/16/18 12:48 86 05/16/18 12:42 98.6 77 12 111/52 (71) 97 05/16/18 08:30 63 05/16/18 07:30 97.9 68 12 131/73 (92) 99 05/16/18 04:44 97.8 68 18 129/63 (85) 97 05/16/18 03:53 70 05/16/18 00:36 98.4 18 105/60 (75) 97 05/15/18 23:00 86 05/15/18 21:06 98.1 86 18 149/63 (91) 98 05/15/18 16:43 65 05/15/18 16:00 97.9 68 18 119/51 (73) 99 I/O 05/15/18 05/15/18 05/15/18 05/16/18 05/16/18 05/16/18 07:00 15:00 23:00 07:00 15:00 23:00 Intake Total 720 ml 600 ml Balance 720 ml 600 ml Intake Oral 720 ml 600 ml # Voids 2 2 # Bowel Movements 2 1 Result Diagram: 05/14/18 0702 05/14/18 07 Objective Remarks GENERAL: This is a well-nourished, well-developed patient, in no apparent distress. CARDIOVASCULAR: Regular rate and rhythm RESPIRATORY: Clear to auscultation. Breath sounds equal bilaterally. No wheezes , rales, or rhonchi. MUSCULOSKELETAL: Extremities without clubbing, cyanosis, or edema. NEURO: Alert & Oriented x4 to person, place, time, situation. Moves all ext x4 Procedures None A/P Problem List: (1) CVA (cerebral vascular accident) ICD Code: I63.9 - Cerebral infarction, unspecified Status: Acute (2) Hypothyroidism ICD Code: E03.9 - Hypothyroidism, unspecified Status: Chronic (3) Hypertension ICD Code: I10 - Essential (primary) hypertension Status: Chronic (4) COPD (chronic obstructive pulmonary disease) ICD Code: J44.9 - Chronic obstructive pulmonary disease, unspecified Status: Chronic (5) Hyperlipidemia ICD Code: E78.5 - Hyperlipidemia, unspecified Status: Chronic Assessment and Plan 1. Acute CVA: Appreciate neurology recommendations. MRI showed nonhemorrhagic infarction of the thalamus. Patient transferred from psychiatry to the neurology floor for monitoring on telemetry. Continue aspirin, Plavix. 2D echocardiogram shows ejection fraction of 55-60%, mild to moderate mitral valve regurgitation, trace tricuspid regurgitation, trivial pulmonary valve regurgitation. CTA of the neck shows 50% stenosis of the left internal carotid artery. No further workup necessary per vascular surgery. Continue OT and PT. Will get a cognitive evaluation 2. Hypertension, chronic essential: Blood pressure is controlled currently on no antihypertensives. 3. Bipolar disorder with previous psychotic features which has resolved: Management per psychiatry. Zyprexa currently on hold at this time per psychiatry recommendations. Unknown the previous psychiatric chronic features were related to previous CVA. At this time, will defer to psychiatry 4. Hypothyroidism: Continue [place] Thyroid. 5. Hyperlipidemia: LDL is elevated at 120. Continue statin. 6. COPD: Not in acute exacerbation. Oxygen as needed. 7. DVT prophylaxis: FREDDIE Wiggins. Discharge Planning Discharge back to rehab versus home pending clinical course. Son does not want patient return back to psychiatry. Problem Qualifiers (1) CVA (cerebral vascular accident): Qualified Codes: I63.312 - Cerebral infarction due to thrombosis of left middle cerebral artery (2) Hypertension: Qualified Codes: I10 - Essential (primary) hypertension (3) Hyperlipidemia: Qualified Codes: E78.5 - Hyperlipidemia, unspecified Smiley Murguia MD May 16, 2018 14:58
--- NOTE | 2018-05-16 17:36 | HHI.PR ---
Review/Management Diagnosis Thalamic CVA Plan continue asa and statin consider [facility]. Diagnosis/Plan: Subjective Subjective Comments No acute events reported Active Medications Current Medications Medications (Trade) Dose Ordered Sig/Stephen Route Start Time Stop Time Status Last Admin (Vasotec Inj) 1.25 mg Q6H PRN IV PUSH 05/13/18 15:00 (Aspirin) 325 mg DAILY PO 05/14/18 09:00 05/16/18 08:04 ([place] Thyroid) 60 mg DAILY@0600 PO 05/14/18 06:00 05/16/18 06:22 (Plavix) 75 mg DAILY PO 05/14/18 09:00 05/16/18 08:04 (NS Flush) 2 ml BID IV FLUSH 05/13/18 21:00 05/16/18 08:04 (NS Flush) 2 ml UNSCH PRN IV FLUSH 05/13/18 17:15 (NovoLOG SUPPLEMENTAL SCALE) 1 ACHS SQ 05/13/18 21:00 05/15/18 11:53 (D50w (Vial) Inj) 50 ml UNSCH PRN IV PUSH 05/13/18 17:15 (Glucagon Inj) 1 mg UNSCH PRN OTHER 05/13/18 17:15 (Lipitor) 20 mg HS PO 05/14/18 21:00 05/15/18 22:06 Allergies Allergies Coded Allergies bee venom protein (honey bee) (Unverified Allergy, Intermediate, Chest Pain, ) codeine (Unverified Allergy, Intermediate, Nausea/Vomiting, 07/06/17) Exam I&O / VS 05/16/18 05/16/18 05/17/18 15:00 23:00 07:00 Intake Total 600 ml Balance 600 ml Intake Oral 600 ml # Voids 1 Vital Signs Date Time Temp Pulse Resp B/P (MAP) Pulse Ox O2 Delivery O2 Flow Rate FiO2 05/16/18 17:17 72 05/16/18 15:00 98.8 74 12 133/60 (84) 98 05/16/18 12:48 86 05/16/18 12:42 98.6 77 12 111/52 (71) 97 05/16/18 08:30 63 05/16/18 07:30 97.9 68 12 131/73 (92) 99 05/16/18 04:44 97.8 68 18 129/63 (85) 97 05/16/18 03:53 70 05/16/18 00:36 98.4 18 105/60 (75) 97 05/15/18 23:00 86 05/15/18 21:06 98.1 86 18 149/63 (91) 98 Respiratory: Lungs CTA ( Briefly opens eyes to voice), Non-labored respirations , BS equal Cardiology: Normal rate, Regular Rhythm Musculoskeletal: No calf tenderness Exam Comments alert, speech nonfluent but improving CN intact MOTOR 5/5 Bk Engel MD PhD May 16, 2018 17:36
[2018-05-16] MEDS: ATORVASTATIN 20 MG TAB PO SCH (21:00)
[2018-05-17] VITALS: BP 120/69; PULSE 68; RESP 20; TEMP 98; O2SAT 97
[2018-05-17 05:40] VITALS: BP 119/70; PULSE 69; RESP 20; TEMP 97.9; O2SAT 97
[2018-05-17] MEDS: THYROID 60 MG TAB PO SCH (05:51)
[2018-05-17] MEDS: INSULIN ASPART SUPPLEMENTAL SCALE SQ SCH ×2 (07:19→11:45)
[2018-05-17] MEDS: ASPIRIN 325 MG TAB PO SCH (07:21)
[2018-05-17] MEDS: SODIUM CHLORIDE 0.9% FLUSH 10 ML FLUSH IV FLUSH SCH (07:21)
[2018-05-17] MEDS: CLOPIDOGREL 75 MG TAB PO SCH (07:21)
[2018-05-17 08:00] VITALS: BP 136/64; PULSE 72; RESP 18; TEMP 98.1; O2SAT 99
--- NOTE | 2018-05-17 08:52 | HHI.PR ---
Subjective Remarks Doing well. No other concerns overnight. Willing to go to rehab. Objective Vitals Vital Signs Date Time Temp Pulse Resp B/P (MAP) Pulse Ox O2 Delivery O2 Flow Rate FiO2 05/17/18 05:40 97.9 69 20 119/70 (86) 97 05/17/18 00:00 98.0 68 20 120/69 (86) 97 05/16/18 21:40 97.9 64 20 125/67 (86) 97 05/16/18 17:17 72 05/16/18 15:00 98.8 74 12 133/60 (84) 98 05/16/18 12:48 86 05/16/18 12:42 98.6 77 12 111/52 (71) 97 I/O 05/16/18 05/16/18 05/16/18 05/17/18 05/17/18 05/17/18 07:00 15:00 23:00 07:00 15:00 23:00 Intake Total 600 ml 240 ml 400 ml Balance 600 ml 240 ml 400 ml Intake Oral 600 ml 240 ml 400 ml # Voids 1 3 1 # Bowel Movements 0 Result Diagram: 05/14/18 0702 05/14/18 07 Objective Remarks GENERAL: This is a well-nourished, well-developed patient, in no apparent distress. CARDIOVASCULAR: Regular rate and rhythm RESPIRATORY: Clear to auscultation. Breath sounds equal bilaterally. No wheezes , rales, or rhonchi. MUSCULOSKELETAL: Extremities without clubbing, cyanosis, or edema. NEURO: Alert & Oriented x4 to person, place, time, situation. Moves all ext x4 Procedures None A/P Problem List: (1) CVA (cerebral vascular accident) ICD Code: I63.9 - Cerebral infarction, unspecified Status: Acute (2) Hypothyroidism ICD Code: E03.9 - Hypothyroidism, unspecified Status: Chronic (3) Hypertension ICD Code: I10 - Essential (primary) hypertension Status: Chronic (4) COPD (chronic obstructive pulmonary disease) ICD Code: J44.9 - Chronic obstructive pulmonary disease, unspecified Status: Chronic (5) Hyperlipidemia ICD Code: E78.5 - Hyperlipidemia, unspecified Status: Chronic Assessment and Plan 1. Acute nonhemorrhagic thalamus CVA: Appreciate neurology recommendations. MRI showed nonhemorrhagic infarction of the thalamus. Patient transferred from psychiatry to the neurology floor for monitoring on telemetry which has showed normal sinus rhythm. Continue aspirin, Plavix. 2D echocardiogram shows ejection fraction of 55-60%, mild to moderate mitral valve regurgitation, trace tricuspid regurgitation, trivial pulmonary valve regurgitation. CTA of the neck shows 50% stenosis of the left internal carotid artery. No further workup necessary per vascular surgery. Continue OT and PT. Will get a cognitive evaluation with speech therapy. Will discharge to inpatient rehab for continued OT/cognitive therapy 2. Hypertension, chronic essential: Blood pressure is controlled currently on no antihypertensives. 3. Bipolar disorder with previous psychotic features which has resolved: Management per psychiatry. Zyprexa currently on hold at this time per psychiatry recommendations. Unknown the previous psychiatric chronic features were related to previous CVA. At this time, will defer to psychiatry. Discussed with Dr. Fox yesterday that patient does not need to return back to the psychiatric unit. 4. Hypothyroidism: Continue [place] Thyroid. 5. Hyperlipidemia: LDL is elevated at 120. Continue statin. 6. COPD: Not in acute exacerbation. Oxygen as needed. 7. DVT prophylaxis: FREDDIE Wiggins. Discharge Planning Discharge to inpatient rehab today. Problem Qualifiers (1) CVA (cerebral vascular accident): Qualified Codes: I63.312 - Cerebral infarction due to thrombosis of left middle cerebral artery (2) Hypertension: Qualified Codes: I10 - Essential (primary) hypertension (3) Hyperlipidemia: Qualified Codes: E78.5 - Hyperlipidemia, unspecified Smiley Murguia MD May 17, 2018 08:52
[2018-05-17 09:00] VITALS: PULSE 67
--- NOTE | 2018-05-17 09:28 | HHI.FF ---
Face to Face Verification Diagnosis: (1) CVA (cerebral vascular accident) Physical Therapy Order: Evaluate and Treat Occupational Therapy Order: Evaluate and Treat, Improve ADL Speech Therapy Order: To Improve: Cognitive skills Home Health Nursing Order: Nursing assessment with vital signs I have seen patient Nikki Gray on 05/17/18. My clinical findings support the need for the requested home health care services because: Limited ability to care for self I certify that my clinical findings support that this patient is homebound because: Unsafe to leave home unassisted Smiley Murguia MD May 17, 2018 09:28
[2018-05-17 12:00] VITALS: BP 122/59; PULSE 81; RESP 18; TEMP 98.1; O2SAT 98
== END 2018-05-17 17:17 | DRG 66 ==
LOC: N05A 09:44
PROVIDERS: ADMIT Family Medicine; ATTEND Family Medicine
DX: I63.9 Cerebral infarction, unspecified (principal); J44.9 Chronic obstructive pulmonary disease, unspecified; F25.9 Schizoaffective disorder, unspecified; I69.320 Aphasia following cerebral infarction; I10 Essential (primary) hypertension; E03.9 Hypothyroidism, unspecified; E78.5 Hyperlipidemia, unspecified; F31.9 Bipolar disorder, unspecified; R41.89 Other symptoms and signs involving cognitive functions and awareness; E66.9 Obesity, unspecified; I25.10 Atherosclerotic heart disease of native coronary artery without angina pectoris; R26.9 Unspecified abnormalities of gait and mobility; I34.0 Nonrheumatic mitral (valve) insufficiency; I65.22 Occlusion and stenosis of left carotid artery; Z82.49 Family history of ischemic heart disease and other diseases of the circulatory system; Z83.3 Family history of diabetes mellitus
CPT/HCPCS: 70496; 70498; 80048; 80061; 82948; 83036; 85025; 85027; 93308; 95819; J1815; J7030; Q9967